=== PATIENT | female | born 1950 | race Caucasian/White ===

== ENCOUNTER → 2017-12-20 10:42 | Outpatient (CLI) | payer OTHER, MEDICARE, SELFPAY | PROVIDERS: Family Provider Family Medicine Geriatric Medicine; PCP Family Medicine Geriatric Medicine; Visit Provider Family Medicine Geriatric Medicine | DX: I10 Essential (primary) hypertension (principal); E55.9 Vitamin D deficiency, unspecified; Z13.89 Encounter for screening for other disorder ==

== ENCOUNTER → 2018-02-23 11:27 | Outpatient (CLI) | payer MEDICARE, OTHER, SELFPAY ==
--- NOTE | 2018-02-23 11:27 | DT_ITS ---
This patient was seen during an EMR downtime February 19, 2018 - February 26, 2018. This patient may have a combination of paper and electronic documentation or all paper documentation. All documentation is viewable within the e-chart portion of [facility] for each patient visit.
[2018-02-23 14:50] LABS: Hematocrit 38.7 % (37-47); Hemoglobin 12.4 g/dl (12.0-15.0); Mean Corpuscular Hgb 29.3 pg (27.0-32.0); Mean Corpuscular Volume 91.5 fL (81-99); Red Blood Count 4.23 M/mm3 (4.2-5.4); White Blood Count 9.3 K/mm3 (4.4-11.0)
[2018-02-23 14:51] LABS: Absolute Lymphocyte Count 2.76 X10^3/ul (0.83-4.51); Absolute Neutrophil Count 5.7 X10^3/uL (2.0-7.7); Basophil# 0.03 X10^3/uL; Basophil% 0.3 % (0-1); Eosinophil# 0.22 X10^3/uL; Eosinophils% 2.4 % (0-5); Lymphocyte # 2.76 X10^3/ul (4.0); Lymphocyte % 29.6 % (19-41); Mean Platelet Vol. 12.7 fl (6.2-12.0); Monocyte# 0.62 X10^3/uL; Monocyte% 6.6 % (0-10); Neutrophil # 5.68 X10^3/uL (2.7-7.7); Neutrophil % 60.9 % (47-70); POSITIVE COUNT NO; POSITIVE DIFFERENTIAL NO; POSITIVE MORPHOLOGY NO; Platelet Count 187 K/mm3 (150-450); RBC Distribution Width CV 14.6 % (11.6-14.6); RBC Distribution Width SD 48.4 fl (35.1-43.9)
[2018-02-23 15:41] LABS: BUN 21 mg/dL (7-18); BUN/Creat Ratio 20.2 RATIO (10-20); Creatinine, Serum 1.04 mg/dL (0.55-1.02); EST Glomerular Filtration Rate 56 mL/min (>60); Est Glom Filt Rate - Afr Amer 68 mL/min (>60); Glucose 78 mg/dL (74-106)
[2018-02-23 15:42] LABS: ALB/GLOB Ratio 1.2 RATIO (0.9-2.4); AST(SGOT) 15 U/L (15-37); Alanine Aminotransfer ALT/SGPT 25 U/L (13-56); Albumin, Serum 3.8 g/dL (3.2-5.0); Alkaline Phosphatase 99 U/L (45-117); Anion Gap 10 (5-15); Calcium,Total 8.6 mg/dL (8.5-10.1); Chloride 107 mmol/L (98-107); Globulin 3.2 g/dL (2.2-4.2); Potassium 3.5 mmol/L (3.5-5.1); Sodium Level 144 mmol/L (136-145); Thyroid Stim Hormone (TSH) 1.91 uIU/mL (0.358-3.74)
[2018-02-26 09:27] LABS: Vitamin D,25 Hydroxy 53.4 ng/mL (29.95-100.01)
== END ==
PROVIDERS: Family Provider Family Medicine Geriatric Medicine; PCP Family Medicine Geriatric Medicine; Visit Provider Family Medicine Geriatric Medicine
DX: I10 Essential (primary) hypertension (principal); E55.9 Vitamin D deficiency, unspecified; Z13.89 Encounter for screening for other disorder
CPT/HCPCS: 36415; 80053; 82306; 84443; 85025; 86803

== ENCOUNTER → 2018-02-28 16:41 | Outpatient (CLI) | payer MEDICARE, OTHER, SELFPAY ==
--- NOTE | 2018-02-28 | EMB_PTH ---
PATIENT: SHAWN TIMMONS LOC: [facility] U#:[id number] AGE/SX: 74/F ROOM: RE02/28/[address]: Dr. Nataly Wells MD : 1950 BED: DIS: SPEC #: [id number] RECD: 02/28/18 16:42 STATUS: SAUL DIDIER #: [id number] MATILDA: 02/28/18 00:[address]: Nataly Wells DEPT: SURGICAL PATHOLOGY RECD BY: Ruslan Diaz ENTERED: 03/01/18 05:19 SP TYPE: ENDOM BX/C OSIOT DR: Dr. Abelino Ring MD Tissues: Endometrium, NOS Procedures: Surgery Specimen Level IV HEADER OPERATION: Endometrial biopsy PRE-OP DIAGNOSIS: Abnormal uterine bleeding TISSUE SUBMITTED: Endometrial lining MICROSCOPIC DIAGNOSIS Endometrium, biopsy: Fragments of benign polypoid endometrium with cystic change. Focal pseudodecidual change. AM:quirino 03/02/18 COMMENT The polypoid tissue may represent fragment of endometrial polyp.. Clinical correlation is suggested. Case has been reviewed in consultation with Dr. George who concurs with the above diagnosis. IDC:ANGELY MICROSCOPIC DESCRIPTION Slides are reviewed. GROSS DESCRIPTION Received is one container labeled with the patient's name and not further designated. The specimen consists of multiple irregular fragments of irvin mucoid tissue mixed with hemorrhagic soft tissue that in aggregate measure 2.5 x 1 x 0.3 cm. The specimen is totally submitted in one cassette. / ANGELY:quirino 03/01/18 TC:5 CPT: 69942
== END ==
PROVIDERS: Family Provider Family Medicine Geriatric Medicine; PCP Family Medicine Geriatric Medicine; Visit Provider Obstetrics & Gynecology
DX: N93.9 Abnormal uterine and vaginal bleeding, unspecified (principal)
CPT/HCPCS: 88305

== ENCOUNTER → 2018-05-28 14:54 | Outpatient (CLI) | payer MEDICARE, OTHER, SELFPAY ==
[2018-05-28 16:20] LABS: Absolute Lymphocyte Count 2.67 X10^3/ul (0.83-4.51); Absolute Neutrophil Count 4.7 X10^3/uL (2.0-7.7); Basophil# 0.04 X10^3/uL; Basophil% 0.5 % (0-1); Eosinophil# 0.44 X10^3/uL; Eosinophils% 5.2 % (0-5); Hematocrit 39.9 % (37-47); Hemoglobin 12.7 g/dl (12.0-15.0); Lymphocyte # 2.67 X10^3/ul (4.0); Lymphocyte % 31.6 % (19-41); Mean Corp Hgb Conc 31.8 g/gl (32-36); Mean Corpuscular Hgb 29.3 pg (27.0-32.0); Mean Corpuscular Volume 91.9 fL (81-99); Mean Platelet Vol. 12.9 fl (6.2-12.0); Monocyte% 7.1 % (0-10); Neutrophil # 4.68 X10^3/uL (2.7-7.7); Neutrophil % 55.4 % (47-70); Platelet Count 185 K/mm3 (150-450); RBC Distribution Width CV 14.2 % (11.6-14.6); RBC Distribution Width SD 46.8 fl (35.1-43.9); Red Blood Count 4.34 M/mm3 (4.2-5.4); White Blood Count 8.5 K/mm3 (4.4-11.0)
[2018-05-28 16:21] LABS: POSITIVE COUNT NO; POSITIVE DIFFERENTIAL NO; POSITIVE MORPHOLOGY NO
[2018-05-28 16:39] LABS: Vitamin D,25 Hydroxy 37.6 ng/mL (29.95-100.01)
[2018-05-28 17:17] LABS: ALB/GLOB Ratio 1.1 RATIO (0.9-2.4); AST(SGOT) 20 U/L (15-37); Alanine Aminotransfer ALT/SGPT 32 U/L (13-56); Albumin, Serum 3.6 g/dL (3.2-5.0); Alkaline Phosphatase 91 U/L (45-117); Anion Gap 9 (5-15); BUN 19 mg/dL (7-18); BUN/Creat Ratio 19.6 RATIO (10-20); Calcium,Total 8.6 mg/dL (8.5-10.1); Chloride 108 mmol/L (98-107); Creatinine, Serum 0.97 mg/dL (0.55-1.02); EST Glomerular Filtration Rate 61 mL/min (>60); Est Glom Filt Rate - Afr Amer 74 mL/min (>60); Globulin 3.2 g/dL (2.2-4.2); Glucose 92 mg/dL (74-106); Potassium 3.9 mmol/L (3.5-5.1); Protein, Total 6.8 g/dL (6.4-8.2); Sodium Level 142 mmol/L (136-145); Thyroid Stim Hormone (TSH) 1.75 uIU/mL (0.358-3.74)
[2018-05-30 11:19] LABS: Hep C Antibodies <0.1 s/co ratio (0.0-0.9)
== END ==
PROVIDERS: Family Provider Family Medicine Geriatric Medicine; PCP Family Medicine Geriatric Medicine; Visit Provider Family Medicine Geriatric Medicine
DX: I10 Essential (primary) hypertension (principal); E55.9 Vitamin D deficiency, unspecified; Z13.89 Encounter for screening for other disorder
CPT/HCPCS: 36415; 80053; 82306; 84443; 85025; 86803

== ENCOUNTER → 2018-08-28 14:22 | Outpatient (CLI) | payer MEDICARE, OTHER, SELFPAY ==
[2018-06-26 10:26] VITALS: BMI 35.9
--- NOTE | 2018-08-28 14:40 | BD_ITS ---
STUDY: DUAL ENERGY X-RAY ABSORPTIOMETRY / DXA REASON FOR EXAM: Female, 67 years old. The patient is postmenopausal. Loss of height. TECHNIQUE: Bone Mineral Density (BMD) measurements of lumbar spine and bilateral hips were obtained. COMPARISON: Comparison is made with prior study dated August 10, 2016. FINDINGS: Lumbar Spine (L1-L4): g/cm2 (1.548) / T-score (3.1) / Z-score (4.7) Findings are suggestive of normal bone density with a low fracture risk. Left Femur Total: g/cm2 (1.239) / T-score (1.8) / Z-score (3.2) Left Femoral Neck: g/cm2 (1.146) / T-score (0.8) / Z-score (2.4) Right Femur Total: g/cm2 (1.200) / T-score (1.5) / Z-score (2.9) Right Femoral Neck: g/cm2 (1.052) / T-score (0.1) / Z-score (1.7) The T-Scores on the most recent prior examination were: Lumbar Spine (L1-L4): There has been worsening of bone density since the previous examination. Left Femur Total: which represents a worsening of 3.7%. Right Femur Total: which represents a worsening of 0.3%. BD/Dexa Bone Density Study IMPRESSION: The patient is considered normal as outlined below according to World Daniel Organization (WHO) criteria with a low fracture risk. There has been worsening of bone density since the previous examination. Reference Information: The T-score is the number of standard deviations above or below the standard which is normal for young adults at their peak bone mineral density. The World Health Organization (WHO) interprets the T-scores as follows: Above -1 Normal bone density Between -1 and -2.5 Osteopenia Equal to / or below -2.5 Osteoporosis As a practical clinical guideline, osteopenia may be graded as follows: Mild -1 through -1.5 Moderate -1.6 through -2.0 Severe -2.1 through -2.4 The Z-score is the number of standard deviations above or below age-matched controls. A Z-score of less than -1.5 would be considered abnormal. References: 1. NIH Osteoporosis and Related Bone Diseases http://www.osteo.org 2. International Society for Clinical Densitometry http://www.iscd.org 3. National Osteoporosis Foundation http://www.nof.org Electronically Signed: Jake Espinosa MD at 12:45 EST Tel [phone], Service support ,
--- OUTSIDE RECORDS SUMMARY | 2018-10-14 20:01 | XMS RPT_ITS ---
:1950 Author Organization [place] Support Name Relationship Address Phone EDVIN MONROE Unavailable [address] + [place] [address] R Unavailable Unavailable Unavailable IAIN HE Unavailable [address] + [place] [address] EDVIN MONROE Unavailable [address] + [place] [address] R Unavailable Unavailable Unavailable IAIN, HE Unavailable [address] + [place] [address] EDVIN MONROE Unavailable [address] + [place] [address] R Unavailable Unavailable Unavailable IAIN, HE Unavailable [address] + [place] [address] EDVIN MONROE Unavailable [address] + [place] [address] R Unavailable Unavailable Unavailable IAIN, HE Unavailable [address] + [place] [address] EDVIN MONROE Unavailable [address] + [place] [address] R Unavailable Unavailable Unavailable IAIN, HE Unavailable [address] + [place] [address] EDVIN MONROE Unavailable [address] + [place] [address] R Unavailable Unavailable Unavailable IAIN, HE Unavailable [address] + [place] [address] EDVIN MONROE Unavailable [address] + [place] [address] R Unavailable Unavailable Unavailable IAIN, HE Unavailable [address] + [place] [address] EDVIN MONROE Unavailable [address] + [place] [address] R Unavailable Unavailable Unavailable IAINABISAI NelsonER Unavailable [address] + [place] [address] EDVIN MONROE Unavailable [address] + [place] [address] R Unavailable Unavailable Unavailable IAINHE Nelson Unavailable [address] + [place] [address] EDVIN MONROE Unavailable [address] + [place] [address] R Unavailable Unavailable Unavailable IAIN, HE Unavailable [address] + [place] [address] EDVIN MONROE Unavailable [address] + [place] [address] R Unavailable Unavailable Unavailable IAINABISAI NelsonER Unavailable [address] + [place] [address] EDVIN MONROE Unavailable [address] + [place] [address] R Unavailable Unavailable Unavailable IAIN, HE Unavailable [address] + [place] [address] MCLEANEDVIN Un[address] + [place] [address] R Unavailable Unavailable Unavailable IAINHE Nelson Unavailable [address] + [place] [address] EDVIN MONROE Unavailable [address] + [place] [address] R Unavailable Unavailable Unavailable IAINABISAI NelsonER Unavailable [address] + [place] [address] EDVIN MONROE Unavailable [address] + [place] [address] R Unavailable Unavailable Unavailable IAIN, HE Unavailable [address] + [place] [address] Care Team Providers Name Role Phone Jhonathan, Abelino Chi Attending Unavailable Jhonathan, Abelino Chi Primary Care Unavailable Jhonathan, Abelino Chi Attending Unavailable Jhonathan, Abelino Chi Primary Care Unavailable Jhonathan, Abelino Chi Attending Unavailable Jhonathan, Abelino Chi Primary Care Unavailable Dawit Sorensen Attending Unavailable Jhonathan, Abelino Chi Referring Unavailable Dawit Sorensen Attending Unavailable Dawit Sorensen Referring Unavailable Jhonathan, Abelino Chi Primary Care Unavailable Portia Lim PA-C Attending Unavailable Jhonathan, Abelino Chi Referring Unavailable Aleena Orourke Attending Unavailable Jhonathan, Abelino Chi Attending Unavailable Jhonathan, Abelino Chi Primary Care Unavailable Phillip Soler Attending Unavailable Jhonathan, Abelino Chi Referring Unavailable Jhonathan, Abelino Chi Primary Care Unavailable Jhonathan, Abelino Chi Attending Unavailable Jhonathan, Abelino Chi Referring Unavailable Jhonathan, Abelino Chi Primary Care Unavailable Nataly Wells Attending Unavailable Jhonathan, Abelino Chi Referring Unavailable Jhonathan, Abelino Chi Primary Care Unavailable MarcanthonyNataly Attending Unavailable Jhonathan, Abelino Chi Primary Care Unavailable Marcanthony Nataly Referring Unavailable Jhonathan, Abelino Chi Attending Unavailable Jhonathan, Abelino Chi Primary Care Unavailable Nataly Wells Attending Unavailable Jhonathan, Abelino Chi Referring Unavailable MarcNataly borja Attending Unavailable Jhonathan, Abelino Chi Referring Unavailable Jhonathan, Abelino Chi Primary Care Unavailable PROBLEMS PROBLEMS DATE TYPE CONDITION / CODE ATTENDING STATUS SOURCE 09/05/2018 Unknown R92.8 - Other Dawit Sorensen Active [facility] abnormal and [facility] inconclusive Hospital findings on Repository diagnostic imaging of breast / R92.8(ICD-10) 08/28/2018 Unknown N95.9 - Unspecified Jhonathan, Abelino Chi Active [place] menopausal and [facility] perimenopausal Hospital disorder / Repository N95.9(ICD-10) 06/26/2018 Unknown Z30.432 - Encounter Marcanthony, Active [place] for removal of [facility] Hospital contraceptive device Repository / Z30.432(ICD-10) 06/26/2018 Unknown N85.01 - Benign Marcanthony, Active [facility] endometrial [facility] hyperplasia / Hospital N85.01(ICD-10) Repository 03/14/2018 Unknown I10 - Essential Jhonathan, Abelino Chi Active [facility] (primary) [facility] hypertension / Hospital I10(ICD-10) Repository 01/08/2018 Unknown R00.2 - Palpitations Phillip Soler Active [facility] / R00.2(ICD-10) [facility] Hospital Repository PROCEDURES PROCEDURES No Procedure Records FoundRESULTS RESULTS SURGERY VISIT REPORT Observed: 09/12/2018 Status: F Source: [place] 1:57 PM [facility] REPOSITORY [facility] [address] [place] [address] OFFICE VISIT Date of Service: 09/12/18 MR#: [id number] Acct: [id number] Name: SHAWN TIMMONS Rep #: [id number] : 1950 Provider: Portia Lim PA-C Age/Sex: 67/F Location: [facility] Status: Signed Intake Intake Visit Reasons: lump near biopsy site Chief Complaint: abn mammo/ US right Estate Attorney Required: No Is patient in pain?: No Allergies amoxicillin Allergy (Verified 09/12/18 13:23) Rash bee venom protein (honey bee) Allergy (Verified 09/12/18 13:23) Swelling Medications Aspirin [Aspir-Low] 81 mg PO QHS 07/27/17 [History Confirmed 09/12/18] Ergocalciferol [Vitamin D] 50,000 unit PO QMONTH 07/27/17 [History Confirmed 09/12/18] Subjective Details: Patient is a 67 y/o female I am following for abnormal mammogram. Dr. Sorensen performed a right breast ultrasound guided biopsy on 09/04/18. Patient tolerated the procedure well. Pathology demonstrated benign breast tissue. Medial calcification blood vessel wall. Negative for atypia or malignancy. Patient notes moderate amount of ecchymosis. Biopsy site is healing. Objective Details: Right breast- moderate amount of ecchymosis. Biopsy site intact. No drainage noted. Small hematoma palpated. Assessment AND Plan Problems 1. Abnormal mammogram R92.8 2. Hematoma T14.8XXA Plan - Recommend follow-up right breast mammogram in 6 months - Follow-up with Dr. Sorensen after imaging Coding Level of Care Code Off vis,est,level 3 Diagnoses Abnormal mammogram R92.8 Hematoma T14.8XXA 09/12/18 8207 <Electronically signed by Portia Lim PA-C> Date Portia Lim PA-C Cosigner Signature: Date (if applicable) CC: Abelino Ring MD SURGERY VISIT REPORT Observed: 09/10/2018 Status: F Source: [place] 4:09 PM [facility] REPOSITORY [facility] [address] [place] [address] OFFICE VISIT Date of Service: 09/05/18 MR#: [id number] Acct: [id number] Name: SHAWN TIMMONS Rep #: [id number] : 1950 Provider: Dawit Sorensen MD Age/Sex: 67/F Location: [facility] Status: Signed Intake Vital Signs09/05/18 Height 5 ft 1.5 in 09/05/18 Weight: 199 lb 7 oz 09/05/18 Body Mass Index (BMI) 37.0 09/05/18 Blood Pressure 182/75 H Intake Visit Reasons: Abn Mammo Rt Breast [facility] Mammo 08/30 US 08/31 Chief Complaint: abn mammo/ US right Estate Attorney Required: No Is patient in pain?: No Allergies amoxicillin Allergy (Verified 09/05/18 14:11) Rash bee venom protein (honey bee) Allergy (Verified 09/05/18 14:11) Swelling Medications Aspirin [Aspir-Low] 81 mg PO QHS 07/27/17 [History Confirmed 09/05/18] Ergocalciferol [Vitamin D] 50,000 unit PO QMONTH 07/27/17 [History Confirmed 09/05/18] Is last menstrual period known: No Post menopausal: Yes Patient : No PFS Medical History Palpitations (Acute) Nonrheumatic aortic (valve) stenosis (Chronic) Left ventricular hypertrophy (Acute) Hyperlipidemia (Acute) Hypertension (Chronic) Anxiety (Acute) Endometrial hyperplasia without atypia, simple (Acute) History of hysteroscopy (Resolved) Surgical History History of tubal ligation (Chronic) History of cardiac catheterization (Resolved 04/13/11) History of dilatation and curettage (Resolved) History of eye surgery (Resolved) History of tonsillectomy (Resolved) s/p bilateral eye surgery (Resolved) Family History Aunt Cancer Lung Uncle CVA (cerebral vascular accident) Father Heart disease Social History Smoking Status: Never smoker alcohol intake: never substance use type: does not use caffeine: Yes what type of physical activity do you participate in: none seatbelt use: always additional social history: He- Retired HPI HPI HPI: SHAWN TIMMONS, is a 67 F who presents to the office today for evaluation of an abnormal mammogram and ultrasound completed on 08/31/2018. This showed that in the inferior medial portion at the 4 o'clock position approximately 2 cm from the nipple was a 1.3 x 1.3 x 0.5 cm hypoechoic lobulated nodule. A biopsy was recommended. Patient has been off her aspirin for 2 days. She has never had a breast biopsy in the past. She has a relatively strong family history of breast cancer ROS General General: No weight change, appetite, fatigue, colon cancer, breast cancer or weakness HEENT HEENT: No difficulty swallowing, eye injury, eye surgery, swollen glands or hoarseness Endo Endocrine: No thyroid disease, diabetes mellitus, thyroid cancer, Hair loss, heat intolerance or cold intolerance Breast Breast: No nipple discharge Cardio Cardiovascular: Yes murmur and high blood pressure; no pacemaker, heart disease, atrial fibrillation, heart attack, heart stent, palpitations, shortness of breat with exertion or chest pain Resp Respiratory: No shortness of breath, No sleep apnea, No cough, No COPD, No asthma, No emphysema, No wheezing Gastro Gastrointestinal: No abdominal pain, No nausea or vomiting, No diarrhea, No constipation, No blood in stool, No acid reflux, No hemorrhoids, No ulcers, No gallbladder problem, No black,tarry stools Mundo Hematologic: No blood thinners, No blood disorders, No bleeding, No anemia, No blood clots Neuro Neurologic: No weakness Exam [facility] Head: normal to inspection, normocephalic, atraumatic Mouth: moist mucous membranes, oropharynx normal Eyes General: appearance normal, both eyes and all related structures Sclera: sclerae normal Neck Neck: no lymphadenopathy noted, trachea midline Neck mass: No Thyroid: thyroid normal Lymphatic: no lymphadenopathy noted Chest Breast inspection: normal inspection of the breasts Breast Palpation: Yes normal palpation of the breasts, No change in skin, No breast mass, No nipple discharge Resp Other: Respiratory Exam: Deferred Cardio Heart Sounds: murmur Other: Cardiac Exam: Deferred GI Other: GI Exam: Deferred Other: Rectal Exam: Deferred Extrem Other: Extremity Exam: Deferred Office Procedures Biopsy Provider Documentation Preoperative diagnosis: Abnormal mammogram to right breast Postoperative diagnosis: The same Procedure: Ultrasound-guided handheld mammotome breast biopsy left breast Surgeon: Edu Procedure ultrasound of the right breast at the 4 o'clock position revealed the lesion 2 cm from the nipple complex area. I prepped the breast with Betadine. I injected 1% lidocaine plain. I injected local posterior to the lesion. A skin susi was made. Under ultrasound guidance the handheld mammotome needle was directed posterior to the lesion. Under ultrasound guidance numerous biopsies were obtained of this lesion. Under ultrasound guidance a small titanium clip was placed in the biopsy cavity. Pressure was applied for at least 25 minutes prior to the application of a dressing. Steri-Strips were applied sterile dressings were applied and the patient tolerated the procedure well. Alert Skyler Yes Biopsy Breast Biopsy: 28157 US Guidance Procedure Time Out Time Out Informed consent given: Yes Consent signed: Yes Time out checklist: patient, procedure, site marked/identified, positioning of patient, supplies available, allergies confirmed, team agrees on procedure Time out staff in room: Yes Time out verified: Yes Time out date: 09/05/18 Time out time: 14:30 Assessment AND Plan Problems 1. Abnormal mammogram of right breast R92.8 Plan We will do an ultrasound-guided hand L mammotome breast biopsy today in the office. 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 Diagnoses Abnormal mammogram of right breast R92.8 Additional Codes Biopsy - Breast Biopsy: 87741 US Guidance (76663) Comment I would like her to be billed for both the office component and the biopsy component 09/10/18 1609 <Electronically signed by Dawit Sorensen MD> Date Dawit Sorensen MD Cosigner Signature: Date (if applicable) CC: Abelino Ring MD BREAST BIOPSY Observed: 09/04/2018 Status: F Source: [place] (CHOOSE SITE) 2:30 PM [facility] REPOSITORY Patient: SHAWN TIMMONS : 1950 (67/F) Acct Num: [id number] Phys: Dawit Sorensen MD Unit Num: [id number] Loc: [facility] Specimen: [id number] Received: 09/05/18 - 1546 Spec Type: BREAST BX TISSUES 1 TISSUES: Right breast, NOS COMMENT Correlation with clinical, radiologic findings and appropriate follow up are necessary. GROSS DESCRIPTION Received in fixative is one container labeled with the patient's name and designated mammotome biopsy right breast. The specimen consists of multiple irregular fragments of light irvin-white soft tissue that in aggregate measure 1.5 x 1 x 0.1 cm. The specimen is totally submitted in one cassette. / AM:quirino TC:5 CPT: 84642 HEADER OPERATION: Ultrasound-guided mammotome biopsy right breast PRE-OP DIAGNOSIS: Abnormal mammogram R92.8 TISSUE SUBMITTED: Right breast biopsy ISCHEMIC TIME: 1 minute MICROSCOPIC DESCRIPTION Slides are reviewed. MICROSCOPIC DIAGNOSIS Right breast, ultrasound-guided mammotome core biopsy: Fragments of benign breast tissue with extensive dense fibrosis. Medial calcification blood vessel wall. Negative for atypia or malignancy. SJ:quirino 09/07/18 Signed Ramy George MD 09/07/18 <signature on file> Performed By: #### PBRBX #### [facility] [address] [place], [place], [address] BREAST LIMITED Observed: 08/31/2018 Status: F Source: [place] UNILATERAL 10:57 AM [facility] REPOSITORY [facility] Imaging Services [address] [place] [address] Breast Limited Unilateral MR#: [id number] Acct: [id number] Name: SHAWN TIMMONS Rep #: [id number] : 1950 F 67 From: Jake Espinosa MD PCP: Abelino Ring MD, Chi Status: REG CLI Study: Breast Limited Unilateral Date of Exam: 08/31/18 Exam# [id number] Ordering Dr: Abelino Ring MD STUDY: ULTRASOUND BREAST - RIGHT REASON FOR EXAM: Female, 67 years old. Abnormal screening mammogram. TECHNIQUE: Axial and longitudinal images of the RIGHT breast were performed with a high resolution ultrasound transducer. COMPARISON: Comparison is made with prior mammogram dated August 30, 2018. FINDINGS: RIGHT Breast: The inferior medial portion of the right breast was examined by ultrasound. The mammographic abnormality corresponds to a 1.3 cm x 1.3 cm x 0.5 cm lobulated hypoechoic nodular density. Increased flow is seen. A biopsy is recommended for further evaluation. US/Breast Limited Unilateral IMPRESSION: The mammographic abnormality corresponds to 1.3 cm x 1.3 cm x 0.5 cm hypoechoic lobulated nodule at the 4:00 position breast at 2 cm from the nipple. A biopsy is recommended for further evaluation. ASSESSMENT CATEGORY: BIRADS Category 4: Suspicious - Biopsy Should Be Considered. A letter regarding these results will be sent to the patient by the facility within 30 days. Electronically Signed: Jake Espinosa MD at 13:40 EST Tel [phone], Service support , CC: Abelino Ring MD Radar Engineering Teacher: Signed SCREENING MAMM (CAD), Observed: 08/30/2018 Status: F Source: [place] BILAT 9:24 AM [facility] REPOSITORY [facility] Imaging Services [address] [place] [id number] SCREENING MAMM (CAD), BILAT MR#: [id number] Acct: [id number] Name: SHAWN TIMMONS Rep #: [id number] : 1950 F 67 From: Jake Espinosa MD PCP: Abelino Ring MD, Chi Status: REG CLI Study: SCREENING MAMM (CAD), BILAT Date of Exam: 08/30/18 Exam# [id number] Ordering Dr: Abelino Ring MD MAMMOGRAPHY - BILATERAL SCREENING REASON FOR EXAM: Female, 67 years old. Routine annual screening examination. PERTINENT HISTORY: Sister with breast cancer. TECHNIQUE: Digital bilateral breast dimple (3D mammographic acquisition) in the CC and MLO projections. 2-D mediolateral oblique (MLO) and craniocaudad (CC) views of both breasts were obtained. CAD: Full Field Digital Mammography with Computer Added Detection was performed. COMPARISON: Comparison is made with prior study dated August 10, 2016 and March 17, 2014. FINDINGS: Breast Composition: The breasts are heterogeneously dense, which may obscure small masses. There are no dominant masses or suspicious calcifications. Questionable 1 cm x 1.3 cm nodular density in the inferior central portion of the right breast. Correlation with ultrasound is recommended. No other significant abnormalities are identified. BI/SCREENING MAMM (CAD), BILAT IMPRESSION: I suspect a 1 cm x 1.3 cm nodular density in the inferior central portion of the right breast. Correlation with ultrasound is recommended. ASSESSMENT CATEGORY: BIRADS Category 0: Incomplete. Need additional imaging evaluation. A letter regarding these results will be sent to the patient by the facility within 30 days. Approximately 10% of breast cancers are not detected by mammography. A normal mammogram should not delay biopsy of a clinically suspicious abnormality. [id number] Electronically Signed: Jake Espinosa MD at 10:22 EST Tel [phone], Service support , CC: Abelino Ring MD Radar Engineering Teacher: Signed DEXA BONE DENSITY Observed: 08/28/2018 Status: F Source: [place] STUDY 2:30 PM [facility] REPOSITORY [facility] Imaging Services [address] [place] [address] Dexa Bone Density Study MR#: [id number] Acct: [id number] Name: SHAWN TIMMONS Rep #: [id number] : 1950 F 67 From: Jake Espniosa MD PCP: Abelino Ring MD, Chi Status: REG CLI Study: Dexa Bone Density Study Date of Exam: 08/28/18 Exam# [id number] Ordering Dr: Abelino Ring MD STUDY: DUAL ENERGY X-RAY ABSORPTIOMETRY / DXA REASON FOR EXAM: Female, 67 years old. The patient is postmenopausal. Loss of height. TECHNIQUE: Bone Mineral Density (BMD) measurements of lumbar spine and bilateral hips were obtained. COMPARISON: Comparison is made with prior study dated August 10, 2016. FINDINGS: Lumbar Spine (L1-L4): g/cm2 (1.548) / T-score (3.1) / Z-score (4.7) Findings are suggestive of normal bone density with a low fracture risk. Left Femur Total: g/cm2 (1.239) / T-score (1.8) / Z-score (3.2) Left Femoral Neck: g/cm2 (1.146) / T-score (0.8) / Z- score (2.4) Right Femur Total: g/cm2 (1.200) / T-score (1.5) / Z- score (2.9) Right Femoral Neck: g/cm2 (1.052) / T-score (0.1) / Z- score (1.7) The T-Scores on the most recent prior examination were: Lumbar Spine (L1-L4): There has been worsening of bone density since the previous examination. Left Femur Total: which represents a worsening of 3.7%. Right Femur Total: which represents a worsening of 0.3%. BD/Dexa Bone Density Study IMPRESSION: The patient is considered normal as outlined below according to World Daniel Organization (WHO) criteria with a low fracture risk. There has been worsening of bone density since the previous examination. Reference Information: The T-score is the number of standard deviations above or below the standard which is normal for young adults at their peak bone mineral density. The World Health Organization (WHO) interprets the T-scores as follows: Above -1 Normal bone density Between -1 and -2.5 Osteopenia Equal to / or below -2.5 Osteoporosis As a practical clinical guideline, osteopenia may be graded as follows: Mild -1 through -1.5 Moderate -1.6 through -2.0 Severe -2.1 through -2.4 The Z-score is the number of standard deviations above or below age-matched controls. A Z-score of less than -1.5 would be considered abnormal. References: 1. NIH Osteoporosis and Related Bone Diseases http://www.osteo.org 2. International Society for Clinical Densitometry http://www.iscd.org 3. National Osteoporosis Foundation http://www.nof.org Electronically Signed: Jake Espinosa MD at 12:45 EST Tel [phone], Service support , CC: Abelino Ring MD Radar Engineering Teacher: Signed RETAIL INTERIOR DESIGNER OFFICE VISIT Observed: 06/26/2018 Status: F Source: [place] REPORT 10:43 AM [facility] [address] [place] [address] OFFICE VISIT Date of Service: 06/26/18 MR#: [id number] Acct: [id number] Name: SHAWN TIMMONS Rep #: [id number] : 1950 Provider: Nataly Wells MD Age/Sex: 67/F Location: [facility] [place] [facility] Status: Signed Intake Vital Signs06/26/18 Height 5 ft 2 in 06/26/18 Weight: 196 lb 2 oz 06/26/18 Body Mass Index (BMI) 35.9 06/26/18 Blood Pressure 150/98 H Intake Visit Reasons: IUD REMOVAL Chief Complaint: IUD Removal Estate Attorney Required: No Is patient in pain?: No Allergies amoxicillin Allergy (Verified 02/28/18 11:34) Rash bee venom protein (honey bee) Allergy (Verified 02/28/18 11:34) Swelling Medications Aspirin [Aspir-Low] 81 mg PO QHS 07/27/17 [History Confirmed 06/26/18] Atorvastatin Calcium [Lipitor] 40 mg PO QHS 07/27/17 [History Confirmed 06/26/18] Ergocalciferol [Vitamin D] 50,000 unit PO QMONTH 07/27/17 [History Confirmed 06/26/18] Is last menstrual period known: No Post menopausal: Yes Patient : No : No PFSH PFSH Medical History Palpitations (Acute) Nonrheumatic aortic (valve) stenosis (Chronic) Left ventricular hypertrophy (Acute) Hyperlipidemia (Acute) Hypertension (Chronic) Anxiety (Acute) Endometrial hyperplasia without atypia, simple (Acute) History of hysteroscopy (Resolved) Surgical History History of tubal ligation (Chronic) History of cardiac catheterization (Resolved 04/13/11) History of dilatation and curettage (Resolved) History of eye surgery (Resolved) History of tonsillectomy (Resolved) s/p bilateral eye surgery (Resolved) Family History Aunt Cancer Lung Uncle CVA (cerebral vascular accident) Father Heart disease Social History Smoking Status: Never smoker alcohol intake: never substance use type: does not use caffeine: Yes what type of physical activity do you participate in: none seatbelt use: always additional social history: He- Retired Pregancy History 1 Elective abortions Hx Para 1 Spontaneous abortions Past Pregnancies Del. DatName [facility] LgAnesthesD LocaProviderFOB e ht en ia tn Unknown 1972 Sco tt HPI IUD REMOVAL : Details: SHAWN TIMMONS is a 67 year old who presents for iud removal ROS Const Constitutional: Reports system reviewed and no additional complaints, except as docu; denies chills, fever(s), weight loss or weight gain GI GI: Reports as per HPI; denies vomiting, nausea, constipation, cramping, bloating or abdominal pain : Reports as per HPI; denies vaginal dryness, vaginal discharge, urinary urgency, urinary frequency or urinary incontinence Exam Const General: cooperative, healthy appearing, comfortable, well developed Orientation: alert HENMT Head: normal to inspection Resp Effort AND Inspection: normal respiratory effort GI Inspection: normal to inspection, non-distended Palpation: soft, no hepatosplenomegaly, no guarding External Female Exam: normal external appearance, normal appearance of the urethra Urethra: normal appearance of the urethra Speculum Exam - Vagina: normal appearance of the vagina, normal vaginal discharge, no lesions Speculum Exam - Cervix: normal appearance of the cervix, nontender Bimanual Exam- Vagina AND Uterus: No cervical tenderness, normal bimanual exam, uterine mobility normal, uterine consistency normal, uterine shape normal, uterine size normal, uterus non-tender Bimanual Exam- Adnexa, other: normal adnexae, no adnexal masses Office Procedures IUD Removal IUD Removal Details: Sign out documentation: Completed Procedure: Speculum placed in vagina, IUD string visualized and grasped with ring forceps. Assessment AND Plan Problems 1. Endometrial hyperplasia without atypia, simple N85.[address], emb q 6 mos x 2 negative. EMB done 02/28/18- Plan iud removed. d eclined fu emb, plan only if repeat bleeding, losing weight. Orders Orders: Coding Level of Care Code Off vis,est,level 2 Diagnoses Endometrial hyperplasia without atypia, simple N85.01 06/26/18 1043 <Electronically signed by Nataly Wells MD> Date Nataly Wells MD Cosigner Signature: Date (if applicable) CC: CBC W/DIFF, AUTOMATED Collected: 05/28/2018 Status: F Source: MELIA 2:55 PM [facility] REPOSITORY TYPE CODE TESTS RESULT OUT OF RANGE REFERENCE UNITS LAB L100.1000 4.4-11.0 K/mm3 Normal WBC 8.5 LAB L100.1200 4.2-5.4 M/mm3 Normal RBC 4.34 LAB L100.1300 12.0-15.0 g/dl Normal HGB 12.7 LAB L100.1400 37-47 % Normal HCT 39.9 LAB L100.1500 81-99 fL Normal MCV 91.9 LAB L100.1600 27.0-32.0 pg Normal MCH 29.3 LAB L100.1700 32-36 g/gl Low MCHC 31.8 LAB L100.1810 11.6-14.6 % Normal RDW CV 14.2 LAB L100.1820 35.1-43.9 fl High RDW SD 46.8 LAB L100.1900 150-450 K/mm3 Normal PLT 185 LAB L100.2000 6.2-12.0 fl High MPV 12.9 LAB L100.2100 47-70 % Normal NEUT% 55.4 LAB L100.2200 19-41 % Normal LY% 31.6 LAB L100.2300 0-10 % Normal MONO% 7.1 LAB L100.2400 0-5 % High EO% 5.2 LAB L100.2500 0-1 % Normal BASO% 0.5 LAB L100.2550 0.0-0.9 % Normal IM GRAN % 0.200 Result Comment: IG% - Immature Granulocytes (promyelocytes, myelocytes and metamyelocytes) > 1% indicates that a LEFT SHIFT is Present. LAB L100.2620 2.0-7.7 X10 3/uL Normal Absolute Neut 4.7 LAB L100.2720 0.83-4.51 X10 3/ul Normal Absolute Lymph 2.67 Performed By: #### L100.0100 #### [facility] [address] [place], [address] VITAMIN D,25 HYDROXY Collected: 05/28/2018 Status: F Source: MELIA 2:55 PM [facility] REPOSITORY TYPE CODE TESTS RESULT OUT OF RANGE REFERENCE UNITS LAB L506.1000 29.95-100.01 ng/mL Normal Vitamin D 37.6 25-OH Result Comment: Vitamin D 25(OH) Status Range Deficiency <20 ng/mL (50nmol/L) Insuffciency 20 - 30 ng/mL (50 - 75 nmol/L) Sufficiency 30 - 100 ng/mL (75 - 250 nmol/L) Toxicity >100 ng/mL (>250 nmol/L) Performed By: #### L506.1000 #### [facility] [address] [place], [address] COMPREHENSIVE METABOLIC Collected: 05/28/2018 Status: F Source: MELIA [facility] 2:55 PM [facility] REPOSITORY TYPE CODE TESTS RESULT OUT OF RANGE REFERENCE UNITS LAB L501.0100 74-106 mg/dL Normal GLU 92 Result Comment: Please note revised GLUCOSE reference range effective 2017. LAB L501.1000 7-18 mg/dL High BUN 19 LAB L501.1100 0.55-1.02 mg/dL Normal CREAT,SERUM 0.97 Result Comment: The validity of the calculated GFR AND GFRAA in patients over 70 years has not been determined. Clinical correlation is essential. LAB L501.1110 >60 mL/min Normal EST GFR 61 Result Comment: Non- GFR Calc LAB L501.1115 >60 mL/min Normal EST GFR - AA 74 Result Comment: GFR Calc LAB L501.1300 10-20 RATIO Normal BUN/CRE 19.6 LAB L501.1500 6.4-8.2 g/dL T Normal PROT 6.8 LAB L501.1800 3.2-5.0 g/dL Normal ALB 3.6 LAB L501.1950 2.2-4.2 g/dL Normal GLOB 3.2 LAB L501.2000 0.9-2.4 RATIO Normal A/G 1.1 LAB L501.2200 8.5-10.1 mg/dL CA Normal 8.6 LAB L501.4100 15-37 U/L Normal AST 20 LAB L501.4305 45-117 U/L Normal ALK P 91 LAB L501.4405 13-56 U/L Normal ALT 32 LAB L501.4600 0.20-1.00 mg/dL T Normal BILI 0.80 LAB L501.5300 136-145 mmol/L NA Normal 142 LAB L501.5600 3.5-5.1 mmol/L K Normal 3.9 LAB L501.5900 98-107 mmol/L High CL 108 LAB L501.6100 21.0-32.0 mmol/L Normal CO2 25.0 LAB L501.6200 5-15 Normal GAP 9 Performed By: #### L500.4050, L501.9520 #### [facility] [address], [place], [id number] THYROID STIM HORMONE Collected: 05/28/2018 Status: F Source: [place] (TSH) 2:55 PM [facility] REPOSITORY TYPE CODE TESTS RESULT OUT OF RANGE REFERENCE UNITS LAB L501.9520 0.358-3.74 uIU/mL Normal TSH 1.75 Performed By: #### L500.4050, L501.9520 #### [facility] [address], [place], [id number] HEPATITIS C ANTIBODIES Collected: 05/28/2018 Status: F Source: [place] 2:55 PM [facility] REPOSITORY TYPE CODE TESTS RESULT OUT OF RANGE REFERENCE UNITS LAB L3100.0650 0.0-0.9 s/co ratio Normal HEP C AB <0.1 Result Comment: Negative: < 0.8 Indeterminate: 0.8 - 0.9 Positive: > 0.9 The CDC recommends that a positive HCV antibody result be followed up with a HCV Nucleic Acid Amplification test (604857). Performed at: - [facility] [address] [id number] Egg Caser: Ramon Dooley PhD, Phone: [phone] Performed By: #### L3100.0625 #### [facility] (refer to report for specific site) refer to report for address and phone number DOWNTIME REPORT Observed: 03/08/2018 Status: F Source: [facility] 11:51 AM [facility] Medical Records Department [address] [place] [address] Downtime Report MR#: [id number] Acct: [id number] Name: SHAWN TIMMONS Rep #: [id number] : 1950 67 From: Ethan Tao PCP: Jhonathan LUGO,Abelino Mosher Status: REG CLI This patient was seen during an EMR downtime February 19, 2018 - February 26, 2018. This patient may have a combination of paper and electronic documentation or all paper documentation. All documentation is viewable within the e-chart portion of [facility] for each patient visit. [employer]AIL [employer] DES[employer] OFFICE VISIT Observed: 03/04/2018 Status: F Source: [place] REPORT 2:11 PM [facility] [address] [place] [address] OFFICE VISIT Date of Service: 02/28/18 MR#: [id number] Acct: [id number] Name: SHAWN TIMMONS Rep #: [id number] : 1950 Provider: Nataly Wells MD Age/Sex: 67/F Location: [facility] [place] Status: Signed Intake Vital Signs02/28/18 Height 5 ft 2 in 02/28/18 Weight: 205 lb 2 oz 02/28/18 Body Mass Index (BMI) 37.5 02/28/18 Blood Pressure 126/66 Intake Visit Reasons: 6 MONTH FOLLOW UP - IUD Estate Attorney Required: No Is patient in pain?: No Allergies amoxicillin Allergy (Verified 02/28/18 11:34) Rash bee venom protein (honey bee) Allergy (Verified 02/28/18 11:34) Swelling Medications Aspirin [Aspir-Low] 81 mg PO QHS 07/27/17 [History Confirmed 02/28/18] Atorvastatin Calcium [Lipitor] 40 mg PO QHS 07/27/17 [History Confirmed 02/28/18] Ergocalciferol [Vitamin D] 50,000 unit PO QMONTH 07/27/17 [History Confirmed 02/28/18] Lisinopril/Hydrochlorothiazide [Zestoretic 20-12.5 mg Tablet] 1 ea PO QHS 07/27/17 [History Confirmed 02/28/18] Is last menstrual period known: No Post menopausal: Yes Patient : No : No PFSH Medical History Palpitations (Acute) Nonrheumatic aortic (valve) stenosis (Chronic) Left ventricular hypertrophy (Acute) Hyperlipidemia (Acute) Hypertension (Chronic) Anxiety (Acute) Endometrial hyperplasia without atypia, simple (Acute) History of hysteroscopy (Resolved) Surgical History History of tubal ligation (Chronic) History of cardiac catheterization (Resolved 04/13/11) History of dilatation and curettage (Resolved) History of eye surgery (Resolved) History of tonsillectomy (Resolved) s/p bilateral eye surgery (Resolved) Family History Aunt Cancer Lung Uncle CVA (cerebral vascular accident) Father Heart disease Social History Smoking Status: Never smoker alcohol intake: never substance use type: does not use caffeine: Yes what type of physical activity do you participate in: none seatbelt use: always additional social history: He- Retired HPI 6 MONTH FOLLOW UP - IUD: Details: SHAWN TIMMONS is a 67 year old who presents for fu of endometrial hyperplasia. she occasionally has spotting and co some bloating and discomfort, doesn't like how she has felt on the mirena iud. she wants it removed as soon as she can. Pregancy History 1 Elective abortions Hx Para 1 Spontaneous abortions Past Pregnancies Del. DatName GA/WeeksOutcome Route [facility] LocaProviderFOB e ht en tn Unknown 1972 Sco tt ROS Const Constitutional: Reports system reviewed and no additional complaints, except as docu GI GI: Reports as per HPI : Reports as per HPI Exam Const General: cooperative, healthy appearing, comfortable, no acute distress, well developed Nutritional Appearance: average body habitus Orientation: alert HENMT Head: normal to inspection, normocephalic Resp Effort AND Inspection: normal respiratory effort GI Inspection: normal to inspection, non-distended Palpation: soft, no hepatosplenomegaly General: bladder normal to palpation External Female Exam: normal external appearance, normal appearance of the urethra Urethra: normal appearance of the urethra, normal palpation, no discharge Speculum Exam - Vagina: normal appearance of the vagina, normal vaginal discharge Speculum Exam - Cervix: normal appearance of the cervix (strings seen), nontender Bimanual Exam- Vagina AND Uterus: bladder normal to palpation, No cervical tenderness, normal bimanual exam, uterine size normal, uterine shape normal, uterine mobility normal, uterine consistency normal, normal cervical palpation, uterus non-tender Bimanual Exam- Adnexa, other: normal adnexae, adnexae mobile, no adnexal masses, pelvic support normal Pelvic Support: normal Skin General: no rashes or lesions noted Office Procedures Endometrial Biopsy Endometrial Biopsy Test: Yes Not Applicable Consent Signed: Yes Time out checklist: patient, procedure, site marked/identified, positioning of patient, supplies available, allergies confirmed, team agrees on procedure tenaculum used: No dilator used: No Details: Cervix prepped with betadine and pipelle inserted into uterus without complication. Specimen obtained and sent to lab for analysis. All instruments removed from vagina without complications. Excellent hemostasis noted. Assessment AND Plan Problems 1. Endometrial hyperplasia without atypia, simple N85.[address], emb q 6 mos x 2 negative. EMB done 02/28/18- Plan biopsy done, if normal offered iud removal and then repeat biopsy in 6 months versus using the mirena x [address] [facility] results Orders Orders: Coding Level of Care Code Off vis,est,level 3 Diagnoses Endometrial hyperplasia without atypia, simple N85.01 Additional Codes Endometrial Biopsy (02008) 03/04/18 1411 <Electronically signed by Nataly Wells MD> Date Nataly Wells MD Cosigner Signature: Date (if applicable) CC: ENDOMETRIAL BX/CURETTINGS Observed: 02/28/2018 Status: F Source: MELIA 12:00 AM [facility] REPOSITORY Patient: SHAWN TIMMONS : 1950 (67/F) Acct Num: [id number] Phys: Russell LUGO,Natlay Unit Num: [id number] Loc: [facility] Specimen: [id number] Received: 02/28/181641 Spec Type: ENDOM BX/C TISSUES TISSUES: Endometrium, NOS COMMENT The polypoid tissue may represent fragment of endometrial polyp.. Clinical correlation is suggested. Case has been reviewed in consultation with Dr. George who concurs with the above diagnosis. IDC:ANGELY GROSS DESCRIPTION Received is one container labeled with the patient's name and not further designated. The specimen consists of multiple irregular fragments of irvin mucoid tissue mixed with hemorrhagic soft tissue that in aggregate measure 2.5 x 1 x 0.3 cm. The specimen is totally submitted in one cassette. / SJ:quirino 03/01/18 TC:5 CPT: 01023 HEADER OPERATION: Endometrial biopsy PRE-OP DIAGNOSIS: Abnormal uterine bleeding TISSUE SUBMITTED: Endometrial lining MICROSCOPIC DESCRIPTION Slides are reviewed. MICROSCOPIC DIAGNOSIS Endometrium, biopsy: Fragments of benign polypoid endometrium with cystic change. Focal pseudodecidual change. AM:quirino 03/02/18 Signed Yousif Crys 03/02/18 <signature on file> Performed By: #### PEMB #### [facility] [address] [place], [address] COMPREHENSIVE METABOLIC Collected: 02/23/2018 Status: F Source: MELIA KATYA 11:37 AM [facility] REPOSITORY Order Comment: 50 TYPE CODE TESTS RESULT OUT OF RANGE REFERENCE UNITS LAB L501.0100 74-106 mg/dL Normal GLU 78 Result Comment: Please note revised GLUCOSE reference range effective 2017. LAB L501.1000 7-18 mg/dL High BUN 21 LAB L501.1100 0.55-1.02 mg/dL High CREAT,SERUM 1.04 Result Comment: The validity of the calculated GFR AND GFRAA in patients over 70 years has not been determined. Clinical correlation is essential. LAB L501.1110 >60 mL/min Low EST GFR 56 LAB L501.1115 >60 mL/min Normal EST GFR - AA 68 LAB L501.1300 10-20 RATIO High BUN/CRE 20.2 LAB L501.1500 6.4-8.2 g/dL Normal T PROT 7.0 LAB L501.1800 3.2-5.0 g/dL Normal ALB 3.8 LAB L501.1950 2.2-4.2 g/dL Normal GLOB 3.2 LAB L501.2000 0.9-2.4 RATIO Normal A/G 1.2 LAB L501.2200 8.5-10.1 mg/dL Normal CA 8.6 LAB L501.4100 15-37 U/L Normal AST 15 LAB L501.4305 45-117 U/L Normal ALK P 99 LAB L501.4405 13-56 U/L Normal ALT 25 LAB L501.4600 0.20-1.00 mg/dL Normal T BILI 0.90 LAB L501.5300 136-145 mmol/L Normal NA 144 LAB L501.5600 3.5-5.1 mmol/L Normal K 3.5 LAB L501.5900 98-107 mmol/L Normal CL 107 LAB L501.6100 21.0-32.0 mmol/L Normal CO2 27.0 LAB L501.6200 5-15 Normal GAP 10 Performed By: #### L500.4050, L501.9520 #### [facility] [address], [place], [address] THYROID STIM HORMONE Collected: 02/23/2018 Status: F Source: MELIA (TSH) 11:37 AM [facility] REPOSITORY Order Comment: 50 TYPE CODE TESTS RESULT OUT OF RANGE REFERENCE UNITS LAB L501.9520 0.358-3.74 uIU/mL Normal TSH 1.91 Performed By: #### L500.4050, L501.9520 #### [facility] [address], [place], [address] CBC W/DIFF, AUTOMATED Collected: 02/23/2018 Status: F Source: MELIA 11:37 AM [facility] REPOSITORY TYPE CODE TESTS RESULT OUT OF RANGE REFERENCE UNITS LAB L100.1000 4.4-11.0 K/mm3 Normal WBC 9.3 LAB L100.1200 4.2-5.4 M/mm3 Normal RBC 4.23 Result Comment: 913@ ATTENTION TECH: DILUTE AND RETEST SPECIMEN IF LAB L100.1300 12.0-15.0 g/dl Normal HGB 12.4 LAB L100.1400 37-47 % Normal HCT 38.7 LAB L100.1500 81-99 fL Normal MCV 91.5 LAB L100.1600 27.0-32.0 pg Normal MCH 29.3 LAB L100.1700 32-36 g/gl Normal MCHC 32.0 LAB L100.1810 11.6-14.6 % Normal RDW 14.6 CV LAB L100.1820 35.1-43.9 fl High RDW 48.4 SD LAB L100.1900 150-450 K/mm3 Normal PLT 187 LAB L100.2000 6.2-12.0 fl High MPV 12.7 LAB L100.2100 47-70 % Normal NEUT% 60.9 LAB L100.2200 19-41 % Normal LY% 29.6 LAB L100.2300 0-10 % Normal MONO% 6.6 LAB L100.2400 0-5 % Normal EO% 2.4 LAB L100.2500 0-1 % Normal BASO% 0.3 LAB L100.2550 0.0-0.9 % Normal IM 0.200 GRAN % Result Comment: IG% - Immature Granulocytes (promyelocytes, myelocytes and metamyelocytes) > 1% indicates that a LEFT SHIFT is Present. LAB L100.2620 2.0-7.7 X10 3/uL Normal Absolute Neut 5.7 LAB L100.2720 0.83-4.51 X10 3/ul Normal Absolute Lymph 2.76 Performed By: #### L100.0100 #### [facility] [address] [place], [address] VITAMIN D,25 HYDROXY Collected: 02/23/2018 Status: F Source: [place] 11:37 AM [facility] REPOSITORY TYPE CODE TESTS RESULT OUT OF RANGE REFERENCE UNITS LAB L506.1000 29.95-100.01 ng/mL Normal Vitamin D 53.4 25-OH Result Comment: Vitamin D 25(OH) Status Range Deficiency <20 ng/mL (50nmol/L) Insuffciency 20 - 30 ng/mL (50 - 75 nmol/L) Sufficiency 30 - 100 ng/mL (75 - 250 nmol/L) Toxicity >100 ng/mL (>250 nmol/L) Performed By: #### L506.1000 #### [facility] [address] [place], [address] HEPATITIS C ANTIBODIES Collected: 02/23/2018 Status: F Source: [place]EL[place] 11:37 AM [facility] REPOSITORY TYPE CODE TESTS RESULT OUT OF RANGE REFERENCE UNITS LAB L3100.0650 Normal HEP C AB Result Comment: TEST RESULT LIMITS HCV Antibody Hep C Virus Ab <0.1 s/co ratio 0.0 - 0.9 Negative: < 0.8 Indeterminate: 0.8 - 0.9 Positive: > 0.9 The CDC recommends that a positive HCV antibody result be followed up with a HCV Nucleic Acid Amplification test (521799). TESTING PERFORMED AT [facility]. ORIGINAL REPORT ON FILE IN LAB CONTAINS ADDITIONAL TEST SITE INFORMATION. Performed By: #### L3100.0625 #### [facility] (refer to report for specific site) refer to report for address and phone number CARDIOLOGY VISIT Observed: 01/08/2018 Status: F Source: MELIA REPORT 1:35 PM [facility] REPOSITORY [facility] [address] [place] [address] OFFICE VISIT Date of Service: 01/08/18 MR#: [id number] Acct: [id number] Name: SHAWN TIMMONS Rep #: [id number] : 1950 Provider: Phillip Soler MD Age/Sex: 67/F [place] [facility] [place]: Signed HPI HPI Details: SHAWN TIMMONS, is a 67 F who presents to the office today for for outpatient cardiovascular follow-up. Since her last visit of approximately 1 year ago she states overall she has been doing well from a cardiac standpoint. She denies any ongoing issues of resting or exertional chest discomfort suspicious for angina pectoris. There has been no issues suspicious for CHF or pulmonary edema. There has been no near syncope or syncope. She has not had to require any additional cardiovascular testing other than lipid labs performed by her primary care physician which she states have been under good control. Intake Vital Signs01/08/18 Height 5 ft 2 in 01/08/18 Weight: 216 lb 01/08/18 Body Mass Index (BMI) 39.4 01/08/18 Blood Pressure 120/70 Intake Visit Reasons: 1 Y FU Allergies amoxicillin Allergy (Verified 01/08/18 13:02) Rash bee venom protein (honey bee) Allergy (Verified 01/08/18 13:02) Swelling Medications Aspirin [Aspir-Low] 81 mg PO QHS 07/27/17 [History Confirmed 01/08/18] Atorvastatin Calcium [Lipitor] 40 mg PO QHS 07/27/17 [History Confirmed 01/08/18] Ergocalciferol [Vitamin D] 50,000 unit PO QMONTH 07/27/17 [History Confirmed 01/08/18] Lisinopril/Hydrochlorothiazide [Zestoretic 20-12.5 mg Tablet] 1 ea PO QHS 07/27/17 [History Confirmed 01/08/18] PFSH Medical History Palpitations (Acute) Nonrheumatic aortic (valve) stenosis (Chronic) Left ventricular hypertrophy (Acute) Hyperlipidemia (Acute) Hypertension (Chronic) Anxiety (Acute) Endometrial hyperplasia without atypia, simple (Acute) History of hysteroscopy (Resolved) Surgical History History of tubal ligation (Chronic) History of cardiac catheterization (Resolved 04/13/11) History of dilatation and curettage (Resolved) History of eye surgery (Resolved) History of tonsillectomy (Resolved) Family History Aunt Cancer Lung Uncle CVA (cerebral vascular accident) Father Heart disease Social History Smoking Status: Never smoker alcohol intake: never substance use type: does not use caffeine: Yes what type of physical activity do you participate in: none seatbelt use: always additional social history: He- Retired ROS Const Const: Negative for fatigue, weakness, weight gain, weight loss, frequent falls or excessive sweating Eyes Eyes: Negative for change in vision, blurry vision or transient loss of vision ENT ENT: Negative for dizziness or balance problems Cardio Chest Pain: No Edema: Bilateral (slight) Muscle aches with walking: None Resp Respiratory: Positive for SOB with activity (only going uphill, breathing at baseline); negative for SOB at rest GI GI: Negative vomiting or vomiting blood/hematemesis : Negative for hematuria Musc Musc: Negative for balance problems, muscle aches/ myalgia, muscle weakness or joint pain Skin Skin: Negative non-healing lesions or rash Neuro Neuro: Negative for weakness, blurry vision, dizziness, lightheadedness, frequent falls or orthostatic symptoms Mundo Hematologic/Lymphatic: Negative for easy bleeding Endo Endo: Negative for fatigue or excessive sweating Psych Psych: Negative for anxiety or depression Allergy Allergy/Immunology: Negative for hives, Negative for rash Assessment AND Plan 1. Nonrheumatic aortic (valve) stenosis I35.0 Plan At the present time she appears to be doing well. She will continue to be followed by history, exam, and echocardiogram. She will be tentatively scheduled for an upcoming echocardiogram to be performed in approximately 1 year prior to her next visit unless needed sooner. This will be to monitor her aortic valve stenosis. 2. Hyperlipidemia, unspecified hyperlipidemia type E78.5 Plan She states her lipid labs have been under good control. She will continue medical management and follow-up with her primary care physician. 3. Essential hypertension I10 Plan Her blood pressure appears to be under good control today. She will continue medical therapy and follow-up. 4. Palpitations R00.2 Plan She is not describing any ongoing palpitations or rapid rates. Again she will continue medical management and follow-up. Orders Orders: Plan Detail Additional Comments Overall she will be scheduled for an outpatient visit in approximately 1 year unless needed sooner. Thank you for allowing me to participate in the care of your patient. Please don't hesitate to call if any issues arise. This note was generated using a voice recognition system and there may be incorrect words, spelling or punctuation that were not noted when reviewing the office note prior to saving. Follow Up 1 Year (PFM) Coding Level of Care Code Off vis,est,level 4 Diagnoses Nonrheumatic aortic (valve) stenosis I35.0 Hyperlipidemia, unspecified hyperlipidemia type E78.5 Hyperlipidemia type: unspecified Essential hypertension I10 Hypertension type: essential hypertension Palpitations R00.2 Coding Level of Care Code Off vis,est,level 4 Diagnoses Nonrheumatic aortic (valve) stenosis I35.0 Hyperlipidemia, unspecified hyperlipidemia type E78.5 Hyperlipidemia type: unspecified Essential hypertension I10 Hypertension type: essential hypertension Palpitations R00.2 01/08/18 1335 <Electronically signed by Phillip Soler MD> Date Phillip Soler MD Cosigner Signature: Date (if applicable) CC: Abelino Ring MD RETAIL INTERIOR DESIGNER OFFICE VISIT Observed: 10/31/2017 Status: F Source: MELIA REPORT 11:12 AM [facility] [address] [place] [address] OFFICE VISIT Date of Service: 08/24/17 MR#: [id number] Acct: [id number] Name: SHAWN TIMMONS Rep #: [id number] : 1950 Provider: Nataly Wells MD Age/Sex: 66/F Location: [facility] [place] Status: Signed Intake Vital Signs08/24/17 Height 5 ft 2 in 08/24/17 Weight: 224 lb 8 oz 08/24/17 Body Mass Index (BMI) 41.1 08/24/17 Blood Pressure 144/67 Intake Visit Reasons: IUD INSERTION Chief Complaint: IUD Insertion Estate Attorney Required: No Is patient in pain?: Yes Allergies amoxicillin Allergy (Verified 07/27/17 10:48) Rash bee venom protein (honey bee) Allergy (Verified 07/27/17 10:48) Swelling Medications Aspirin [Aspir-Low] 81 mg PO QHS 07/27/17 [History Confirmed 08/24/17] Atorvastatin Calcium [Lipitor] 40 mg PO QHS 07/27/17 [History Confirmed 08/24/17] Ergocalciferol [Vitamin D] 50,000 unit PO QMONTH 07/27/17 [History Confirmed 08/24/17] Lisinopril/Hydrochlorothiazide [Zestoretic 20-12.5 mg Tablet] 1 ea PO QHS 07/27/17 [History Confirmed 08/24/17] Misoprostol [Cytotec] 100 mcg PO UD 08/03/17 [History Confirmed 08/24/17] Is last menstrual period known: No Post menopausal: Yes Patient : No : No PFSH PFSH Medical History Endometrial hyperplasia without atypia, simple (Acute) Hyperlipidemia (Acute) Hypertension (Chronic) Surgical History H/O eye surgery (Acute) History of hysteroscopy (Acute) Tonsilectomy (Acute) heart cath (Acute) Family History Aunt Cancer Lung Uncle CVA (cerebral vascular accident) Father Heart disease Social History Smoking Status: Never smoker alcohol intake: never substance use type: does not use caffeine: Yes what type of physical activity do you participate in: none seatbelt use: always additional social history: He- Retired Pregancy History 1 Elective abortions Hx Para 1 Spontaneous abortions Past Pregnancies Del. DatName GA/WeeksOutcome Route [facility] LocaProviderFOB e ht en ia tn Unknown 1972 Sco tt HPI IUD INSERTION: Details: SHAWN TIMMONS is a 66 year old who presents for iud insertion for enometrial hyperplasia ROS Const Constitutional: Reports system reviewed and no additional complaints, except as docu Details: AUB Exam Const General: cooperative, healthy appearing, comfortable, no acute distress Nutritional Appearance: average body habitus External Female Exam: normal external appearance, normal appearance of the urethra Urethra: normal appearance of the urethra Speculum Exam - Vagina: normal appearance of the vagina, normal vaginal discharge Speculum Exam - Cervix: normal appearance of the cervix Office Procedures IUD Insertion IUD GC/Chlamydia:: not done Test: Yes Not Applicable Consent Signed: Yes Time out checklist: patient, procedure, site marked/identified, positioning of patient, supplies available, allergies confirmed, team agrees on procedure IUD: Yes Mirena Time out time: 13:44 Lot number: [id number] date: 08/24/22 Details: Sign in Communication: Completed Sign out documentation: Completed The uterus sounded to 9 cm. After prepping the cervix with betadine and using sterile technique, the cervix was grasped with a single tooth tenaculum and the IUD was inserted without difficulty and the string was cut to 3cm from the external os of the cervix. All instruments were removed from the vagina and excellent hemostasis was noted. Procedure Summary: patient tolerated the procedure well without complication. Assessment AND Plan Problems 1. Endometrial hyperplasia without atypia, simple N85.01 mirena IUD for treatment Patient Instructions IUD insertion and patient plans fu in several months, biopsy in december. Plan Detail Follow Up 6 Months (biopsy) 10/31/17 1112 <Electronically signed by Nataly Wells MD> Date Nataly Wells MD Cosigner Signature: Date (if applicable) CC: ALLERGIES ALLERGIES DATE TYPE / CODE NAME / CODE REACTION SEVERITY SOURCE 09/12/2018 Drug amoxicillin/F0 Rash Unknown [facility] [address](SNOMED M) Repository CT) 09/12/2018 Drug bee venom Swelling Unknown [facility] Allergy/4160 protein ([facility] 12411(SNOMED bee)/[id number] Repository CT) 5(RXNORM) ENCOUNTERS ENCOUNTERS ADMIT/DISCHARGE ACCOUNT ADMITTING ENCOUNTER LOCATION SOURCE NUMBER CLASS 09/12/2018/ [id number] Ambulatory BMSBuilding:B Melia 8 1 [facility] Repository 09/05/2018 [id number] Ambulatory [place] 1 [facility] ing:LABSPEC Repository 09/05/2018/ [id number] Ambulatory BMSBuilding:B [place] 8 9 [facility] Repository 08/31/2018 [id number] Ambulatory [place] 3 [facility] ing:OPUS Repository 08/30/2018 [id number] Ambulatory [place]ia [place] 4 [facility] ing:OPBI Repository 08/28/2018 [id number] Ambulatory [place] 2 [facility] ing:OPBD Repository 06/26/2018/ [id number] Ambulatory BMSBuilding:B [place] 8 1 [facility] Repository 05/28/2018 [id number] Ambulatory [place] 4 [facility] ing:POLAB3 Repository 02/28/2018 [id number] Ambulatory [place] 5 [facility] ing:LABSPEC Repository 02/28/2018/ [id number] Ambulatory BMSBuilding:B [place] 8 4 [facility] Repository 02/23/2018 [id number] [place] [facility] ing:LAB Repository 01/08/2018/ [id number] Ambulatory BMSBuilding:B [place] 8 7 [facility] Repository 12/20/2017 [id number] Ambulatory [place]ia [place] 4 [facility] ing:POLAB3 Repository 11/27/2017 [id number] Ambulatory BMSBuilding:B [place] 4 [facility] Repository 08/24/2017/ [id number] Ambulatory BMSBuilding:B [place] 7 7 [facility] Repository PAYERS PAYERS ENCOUNTER GUARANTOR PAYER SUBSCRIBER SOURCE 09/12/2018 SHAWN F Primary SHAWN F Melia [id number] APPLE Insurance:MEDICARE REHMDOB: [facility] [id number] Repository [address]Hsw: [phone]) [id number] [phone] (HP) Date:2018-09-12 09/12/2018 Secondary SHAWN F [place] Insurance:MEDICAL REHMDOB: [facility] [id number] Hospital Number: Repository [id number] Date:9534-68-53ZN [address] [address]OM: 09/12/2018 Tertiary NOT GIVENUNK [place] Insurance:SELF PAY [facility] Effective Repository Date:2018-09-12 09/05/2018 HE Dick [id number] Primary [place]N [place] Insurance:MEDICARE REHMDOB: [place] PART A [facility] [id number] Hospital [address]Ort: (330) Number: Repository [phone] (HP) [id number] Date:2018-09-05 09/05/2018 Secondary SHAWN F [place] Insurance:MEDICAL REHMDOB: [facility] [id number] Hospital Number: Repository [id number] Date:3919-98-53NQ[address] [address]TR: 09/05/2018 Tertiary NOT GIVENUNK [place] Insurance:SELF PAY [facility] Number: Effective Repository Date:2018-09-05 09/05/2018 HE Dick [id number] Primary SHAWN F [place] Insurance:MEDICARE REHMDOB: [place] PART [place] [id number] Hospital [address]Tyg: (330) Number: Repository [phone] (HP) [id number] Date:2018-09-04 09/05/2018 Secondary SHAWN F [place] Insurance:MEDICAL REHMDOB: [facility] [id number] Hospital Number: Repository [id number] Date:6821-90-45FP [address] [address]VI: 09/05/2018 Tertiary NOT GIVENUNK [place] Insurance:SELF PAY [facility] Number: Effective Repository Date:2018-09-05 08/31/2018 HE Dick [id number] Primary SHAWN F [place] Insurance:MEDICARE REHMDOB: [place] PART A [facility] [id number] Hospital [address]See: (330) Number: Repository [phone] (HP) [id number] Date:2018-08-31 08/31/2018 Secondary SHAWN F [place] Insurance:MEDICAL REHMDOB: [facility] [id number] Hospital Number: Repository [id number] Date:0917-68-52VE [address] [address]US: 08/31/2018 Tertiary NOT GIVENUNK [place] Insurance:SELF PAY [facility] Hospital Number: Effective Repository Date:2018-08-31 08/30/2018 HE Dick [id number] Primary SAHWN F [place] Insurance:MEDICARE REHMDOB: [place] PART A [facility] [id number] Hospital [address]Dac: (330) Number: Repository [phone] (HP) [id number] Date:2018-08-21 08/30/2018 Secondary SHAWN F [place] Insurance:MEDICAL REHMDOB: [facility] [id number] Hospital Number: Repository [id number] Date:7866-79-04CM [address] [address]EX: 08/30/2018 Tertiary NOT GIVENUNK [place] Insurance:SELF PAY [facility] Hospital Number: Effective Repository Date:2018-08-21 08/28/2018 HE Dick [id number] Primary SHAWN F [place] Insurance:MEDICARE REHMDOB: [place] PART A [facility] [id number] Hospital [address]Iwv: (330) Number: Repository [phone] (HP) [id number] Date:2018-06-18 08/28/2018 Secondary SHAWN F [place] Insurance:MEDICAL REHMDOB: [facility] [id number] Hospital Number: Repository [id number] Date:5300-05-70SI [address] [address]CZ: 08/28/2018 Tertiary NOT GIVENUNK [place] Insurance:SELF PAY [facility] Number: Effective Repository Date:2018-06-18 06/26/2018 He Dick [id number] Primary SHAWN F [place] Insurance:MEDICARE REHMDOB: [place] PART [place] [facility] [id number] Hospital [address]Itw: (330) Number: Repository [phone] () [id number] Date:2018-06-18 06/26/2018 Secondary SHAWN F [place] Insurance:MEDICAL REHMDOB: [facility] [id number] Hospital Number: Repository [id number] Date:0794-89-43CQ [address] [address]MH: 06/26/2018 Tertiary NOT GIVENUNK [place] Insurance:SELF PAY [facility] Hospital Number: Effective Repository Date:2018-06-26 05/28/2018 He Dick [id number] Primary [place]N [place] Insurance:MEDICARE REHMDOB: [place] PART A [facility] [id number] Hospital [address]Loe: (330) Number: Repository [phone] () [id number] Date:2018-05-28 05/28/2018 Secondary SHAWN F [place] Insurance:MEDICAL REHMDOB: [facility] [id number] Hospital Number: Repository [id number] Date:2038-14-84PL [address] [address]UF: 05/28/2018 Tertiary NOT GIVENUNK [place] Insurance:SELF PAY [facility] Hospital Number: Effective Repository Date:2018-05-28 02/28/2018 He Dick [id number] Primary SHAWN F [place] Insurance:MEDICARE REHMDOB: [place] PART A [facility] [id number] Hospital [address]Djp: (330) Number: Repository [phone] () [id number] Date:2018-02-28 02/28/2018 Secondary SHAWN F [place] Insurance:MEDICAL REHMDOB: [facility] [id number] Hospital Number: Repository [id number] Date:7487-60-57PA[address] [address]EW: 02/28/2018 Tertiary NOT GIVENUNK [place] Insurance:SELF PAY [facility] Number: Effective Repository Date:2018-02-28 02/28/2018 He [id number] Primary SHAWN F [place] Insurance:MEDICARE REHMDOB: [place] PART A [facility] [id number] Hospital [address]Jey: (330) Number: Repository [phone] () [id number] Date:2018-01-25 02/28/2018 Secondary SHAWN F [place] Insurance:MEDICAL REHMDOB: [facility] [id number] Hospital Number: Repository [id number] Date:0643-75-85AO [address] [address]TT: 02/28/2018 Tertiary NOT GIVENUNK [place] Insurance:SELF PAY [facility] Number: Effective Repository Date:2018-02-28 02/23/2018 He Dick [id number] Primary SHAWN F [place] Insurance:MEDICARE REHMDOB: [place] PART A [facility] [id number] Hospital [address]89[address]Nbg: (330) Number: Repository [phone] () [id number] Date:2017-12-20 02/23/2018 Secondary SHAWN F [place] Insurance:MEDICAL REHMDOB: [facility] [id number] Hospital Number: Repository [id number] Date:2252-94-76CY[address] [address]KT: 02/23/2018 Tertiary NOT GIVENUNK [place] Insurance:SELF PAY [facility] Hospital Number: Effective Repository Date:2017-12-20 01/08/2018 He [id number] Primary SHAWN F [place] Insurance:MEDICARE REHMDOB: [place] PART [place] [facility] [id number] Hospital [address]Ghn: (330) Number: Repository [phone] () [id number] Date:2017-09-04 01/08/2018 Secondary SHAWN F [place] Insurance:MEDICAL REHMDOB: [facility] [id number] Hospital Number: Repository [id number] Date:0464-01-80[place] 324[address]01[address]WP: 01/08/2018 Tertiary NOT GIVENUNK [place] Insurance:SELF PAY [facility] Hospital Number: Effective Repository Date:2018-01-08 12/20/2017 He Dick [id number] Primary [place] Insurance[place] [facility] [id number] Hospital [address]Xdb: (330) Number: Repository [phone] () [id number] Date:6048-05-11[place] 3249801[address]WP: 12/20/2017 Secondary SHAWN F [place] Insurance:MEDICARE REHMDOB: [facility] PART A [facility] [id number] Hospital Number: Repository [id number] Date:2017-12-20 12/20/2017 Tertiary NOT GIVENUNK [place] Insurance:SELF PAY [facility] Hospital Number: Effective Repository Date:2017-12-20 11/27/2017 He Dick [id number] Primary SHAWN F [place] Insurance[place]MEDICAL [place] [facility] [id number] Hospital [address]Fbx: (330) Number: Repository [phone] () [id number] Date:[id number] [address]JS: 11/27/2017 Secondary SHAWN F [place] Insurance:MEDICARE REHMDOB: [place] [facility] A [facility] [id number] Hospital Number: Repository [id number] Date:2017-11-27 11/27/2017 Tertiary NOT GIVENUNK [place] Insurance:SELF PAY [facility] Number: Effective Repository Date:2017-11-27 08/24/2017 He Dick [id number] Primary SHAWN [place] Insurance:MEDICARE REHMDOB: [place] PART A [facility] [id number] Hospital 145[address]Qup: 330) Number: Repository [phone] ( [id number] Date:2017-08-19 08/24/2017 Secondary SHAWN Kerry Cárdenas Insurance:MEDICAL REHMDOB: [facility] [id number] Hospital Number: Repository [id number] Date:5992-93-74[address], [place] [address]SS: 08/24/2017 Tertiary NOT GIVENUNK [place] Insurance:SELF PAY [facility] Number: Effective Repository Date:2017-08-19
== END ==
PROVIDERS: Family Provider Family Medicine Geriatric Medicine; PCP Family Medicine Geriatric Medicine; Visit Provider Family Medicine Geriatric Medicine
DX: Z78.0 Asymptomatic menopausal state (principal)
CPT/HCPCS: 77080

== ENCOUNTER → 2018-08-30 09:19 | Outpatient (CLI) | payer MEDICARE, OTHER, SELFPAY ==
[2018-06-26 10:26] VITALS: BMI 35.9
--- NOTE | 2018-08-30 09:23 | BI_ITS ---
MAMMOGRAPHY - BILATERAL SCREENING REASON FOR EXAM: Female, 67 years old. Routine annual screening examination. PERTINENT HISTORY: Sister with breast cancer. TECHNIQUE: Digital bilateral breast dimple (3D mammographic acquisition) in the CC and MLO projections. 2-D mediolateral oblique (MLO) and craniocaudad (CC) views of both breasts were obtained. CAD: Full Field Digital Mammography with Computer Added Detection was performed. COMPARISON: Comparison is made with prior study dated August 10, 2016 and March 17, 2014. FINDINGS: Breast Composition: The breasts are heterogeneously dense, which may obscure small masses. There are no dominant masses or suspicious calcifications. Questionable 1 cm x 1.3 cm nodular density in the inferior central portion of the right breast. Correlation with ultrasound is recommended. No other significant abnormalities are identified. BI/SCREENING MAMM (CAD), BILAT IMPRESSION: I suspect a 1 cm x 1.3 cm nodular density in the inferior central portion of the right breast. Correlation with ultrasound is recommended. ASSESSMENT CATEGORY: BIRADS Category 0: Incomplete. Need additional imaging evaluation. A letter regarding these results will be sent to the patient by the facility within 30 days. Approximately 10% of breast cancers are not detected by mammography. A normal mammogram should not delay biopsy of a clinically suspicious abnormality. [id number] Electronically Signed: Jake Espinosa MD at 10:22 EST Tel [phone], Service support ,
--- OUTSIDE RECORDS SUMMARY | 2018-10-16 02:53 | XMS RPT_ITS ---
:1950 Author Organization [place] Support Name Relationship Address Phone EDVIN MONROE Unavailable [address] + [place] [address] R Unavailable Unavailable Unavailable IAIN HE Unavailable [address] + [place] [address] EDVIN MONROE Unavailable [address] + [place] [address] R Unavailable Unavailable Unavailable IAIN, HE Unavailable [address] + [place] [address] EDVIN MONROE Unavailable [address] + [place] [address] R Unavailable Unavailable Unavailable IAIN, HE Unavailable [address] + [place] [address] EDVIN MONROE Unavailable [address] + [place] [address] R Unavailable Unavailable Unavailable IAIN, HE Unavailable [address] + [place] [address] EDVIN MONROE Unavailable [address] + [place] [address] R Unavailable Unavailable Unavailable IAIN, HE Unavailable [address] + [place] [address] EDVIN MONROE Unavailable [address] + [place] [address] R Unavailable Unavailable Unavailable IAIN, HE Unavailable [address] + [place] [address] EDVIN MONROE Unavailable [address] + [place] [address] R Unavailable Unavailable Unavailable IAIN, HE Unavailable [address] + [place] [address] EDVIN MONROE Unavailable [address] + [place] [address] R Unavailable Unavailable Unavailable IAINABISAI NelsonER Unavailable [address] + [place] [address] EDVIN MONROE Unavailable [address] + [place] [address] R Unavailable Unavailable Unavailable IAINHE Nelson Unavailable [address] + [place] [address] EDVIN MONROE Unavailable [address] + [place] [address] R Unavailable Unavailable Unavailable IAIN, HE Unavailable [address] + [place] [address] EDVIN MONROE Unavailable [address] + [place] [address] R Unavailable Unavailable Unavailable IAINABISAI NelsonER Unavailable [address] + [place] [address] EDVIN MONROE Unavailable [address] + [place] [address] R Unavailable Unavailable Unavailable IAIN, HE Unavailable [address] + [place] [address] BETTERTONEDVIN Unavailable [address] + [place] [address] R Unavailable Unavailable Unavailable IAINHE Nelson Unavailable [address] + [place] [address] EDVIN MONROE Unavailable [address] + [place] [address] R Unavailable Unavailable Unavailable IAINABISAI NelsonER Unavailable [address] + [place] [address] EDVIN MONROE Unavailable [address] + [place] [address] R Unavailable Unavailable Unavailable IAIN, HE Unavailable [address] + [place] [address] Care Team Providers Name Role Phone Jhonathan, [...] Jhonathan, Abelino Chi Primary Care Unavailable Nataly Wlels Attending Unavailable Jhonathan, Abelino Chi Referring Unavailable [...] N95.9 - Unspecified Jhonathan, Abelino Chi Active [place] menopausal and [facility] perimenopausal Hospital disorder / Repository N95.9(ICD-10) 06/26/2018 Unknown Z30.432 - Encounter Marcanthony, Active [place] for removal of [facility] Hospital contraceptive device Repository / Z30.432(ICD-10) 06/26/2018 Unknown N85.01 - Benign Marcanthony, Active [place] endometrial [facility] hyperplasia / Hospital N85.01(ICD-10) Repository 03/14/2018 Unknown I10 - Essential Jhonathan, Abelino Chi Active [place] (primary) [facility] hypertension / Hospital I10(ICD-10) Repository 01/08/2018 Unknown R00.2 - Palpitations Phillip Soler Active [place] / R00.2(ICD-10) [facility] Hospital Repository PROCEDURES PROCEDURES No Procedure Records FoundRESULTS RESULTS SURGERY VISIT REPORT Observed: 09/12/2018 Status: F Source: [place] 1:57 PM [facility] HOSPITAL REPOSITORY [facility] [address] [place] [address] OFFICE VISIT Date of Service: 09/12/18 MR#: [id number] Acct: [id number] Name: SHAWN TIMMONS Rep #: [id number] : 1950 Provider: Portia Lim PA-C Age/Sex: 67/F Location: [facility] Status: Signed Intake Intake Visit Reasons: lump near biopsy site Chief Complaint: abn mammo/ US right Bottle Blower Required: No Is patient in pain?: No [...] Diagnoses Abnormal mammogram R92.8 Hematoma T14.8XXA 09/12/18 9417 <Electronically signed by Portia Lim PA-C> Date Portia Lim PA-C Cosigner Signature: Date (if applicable) CC: Abelino Ring MD SURGERY VISIT REPORT Observed: 09/10/2018 Status: F Source: [place] 4:09 PM [facility] REPOSITORY [facility] [address] [place] [address] OFFICE VISIT Date of Service: 09/05/18 MR#: [id number] Acct: [id number] Name: SHAWN TIMMONS Rep #: [id number] : 1950 Provider: Dawit Sorensen MD Age/Sex: 67/F Location: [facility] Status: Signed Intake Vital Signs09/05/18 Height 5 ft 1.5 in 09/05/18 Weight: 199 lb 7 oz 09/05/18 Body Mass Index (BMI) 37.0 09/05/18 Blood Pressure 182/75 H Intake Visit Reasons: Abn Mammo Rt Breast [facility] Mammo 08/30 US 08/31 Chief Complaint: abn mammo/ US right Bottle Blower Required: No Is patient in pain?: No [...] blood clots Neuro Neurologic: No weakness Exam [facility] Head: normal to inspection, normocephalic, atraumatic [...] well. Alert Skyler Yes Biopsy Breast Biopsy: 15541 US Guidance Procedure Time Out Time Out [...] Orders: Coding Level of Care Code Attention Day Care Teacher Diagnoses Abnormal mammogram of right breast R92.8 Additional Codes Biopsy - Breast Biopsy: 13970 US Guidance (58206) Comment I would like her to be billed for both the office component and the biopsy component 09/10/18 1609 <Electronically signed by Dawit Sorensen MD> Date Dawit Sorensen MD Cosigner Signature: Date (if applicable) CC: Abelino Ring MD BREAST BIOPSY Observed: 09/04/2018 Status: F Source: [place] (CHOOSE SITE) 2:30 PM [facility] REPOSITORY Patient: SHAWN TIMMONS : 1950 (67/F) Acct Num: [id number] Phys: Dawit Sorensen MD Unit Num: [id number] Loc: [facility] Specimen: [id number] Received: 09/05/18 - 1546 Spec Type: BREAST [...] in one cassette. / AM:quirino TC:5 CPT: 15193 HEADER OPERATION: Ultrasound-guided mammotome biopsy right breast [...] on file> Performed By: #### PBRBX #### [facility] [address] [place], [place], [address] BREAST LIMITED Observed: 08/31/2018 Status: F Source: [place] UNILATERAL 10:57 AM [facility] REPOSITORY [facility] Imaging Services [address] [place] [address] Breast Limited Unilateral MR#: [id number] Acct: [id number] Name: SHAWN TIMMONS Rep #: [id number] : 1950 F 67 From: Jake Espinosa MD PCP: Abelino Ring MD, Chi Status: REG CLI Study: Breast Limited Unilateral Date of Exam: 08/31/18 Exam# [id number] Ordering Dr: Abelino Ring MD STUDY: ULTRASOUND [...] Jake Espinosa MD at 13:40 EST Tel [phone], Service support , CC: Abelino Ring MD Electrical Design Technician: Signed SCREENING MAMM (CAD), Observed: 08/30/2018 Status: F Source: [place] BILAT 9:24 AM [facility] REPOSITORY [facility] Imaging Services [address] [place] [address] SCREENING MAMM (CAD), BILAT MR#: [id number] Acct: [id number] Name: SHAWN TIMMONS Rep #: [id number] : 1950 F 67 From: Jake Espinosa MD PCP: Abelino Ring MD, Chi Status: REG CLI Study: SCREENING MAMM (CAD), BILAT Date of Exam: 08/30/18 Exam# [id number] Ordering Dr: Abelino Ring MD MAMMOGRAPHY - [...] delay biopsy of a clinically suspicious abnormality. [id number] Electronically Signed: Jake Espinosa MD at 10:22 EST Tel [phone], Service support , CC: Abelino Ring MD Electrical Design Technician: Signed DEXA BONE DENSITY Observed: 08/28/2018 Status: F Source: [place] STUDY 2:30 PM [facility] REPOSITORY [facility] Imaging Services [address] [place] [address] Dexa Bone Density Study MR#: [id number] Acct: [id number] Name: SHAWN TIMMONS Rep #: [id number] : 1950 F 67 From: Jake Espinosa MD PCP: Abelino Ring MD, Chi Status: REG CLI Study: Dexa Bone Density Study Date of Exam: 08/28/18 Exam# [id number] Ordering Dr: Abelino Ring MD STUDY: DUAL [...] Jake Espinosa MD at 12:45 EST Tel [phone], Service support , CC: Abelino Ring MD Electrical Design Technician: Signed BROADCAST TECHNICIAN OFFICE VISIT Observed: 06/26/2018 Status: F Source: [place] REPORT 10:43 AM [facility] [address] [place] [address] OFFICE VISIT Date of Service: 06/26/18 MR#: [id number] Acct: [id number] Name: SHAWN TIMMONS Rep #: [id number] : 1950 Provider: Nataly Wells MD Age/Sex: 67/F Location: [facility] Status: Signed Intake Vital Signs06/26/18 Height 5 ft 2 in 06/26/18 Weight: 196 lb 2 oz 06/26/18 Body Mass Index (BMI) 35.9 06/26/18 Blood Pressure 150/98 H Intake Visit Reasons: IUD REMOVAL Chief Complaint: IUD Removal Bottle Blower Required: No Is patient in pain?: No [...] abortions Past Pregnancies Del. DatName GA/WeeksOutcome Route [facility] LgAnesthesD LocaProviderFOB e ht en [...] 05/28/2018 Status: F Source: [place] 2:55 PM [facility] REPOSITORY TYPE CODE TESTS RESULT OUT OF [...] Lymph 2.67 Performed By: #### L100.0100 #### [facility] [address] [place], [address] VITAMIN D,25 HYDROXY Collected: 05/28/2018 Status: F Source: [place] 2:55 PM [facility] REPOSITORY TYPE CODE TESTS RESULT OUT OF RANGE REFERENCE UNITS LAB L506.1000 29.95-100.01 ng/mL Normal Vitamin D 37.6 25-OH Result Comment: Vitamin D 25(OH) Status Range Deficiency <20 ng/mL (50nmol/L) Insuffciency 20 - 30 ng/mL (50 - 75 nmol/L) Sufficiency 30 - 100 ng/mL (75 - 250 nmol/L) Toxicity >100 ng/mL (>250 nmol/L) Performed By: #### L506.1000 #### [facility] [address] [place], [address] COMPREHENSIVE METABOLIC Collected: 05/28/2018 Status: F [facility] [place] [facility] 2:55 PM [facility] REPOSITORY TYPE CODE TESTS RESULT OUT OF [...] 9 Performed By: #### L500.4050, L501.9520 #### [facility] [address] [place], [place], [address] THYROID STIM HORMONE Collected: 05/28/2018 Status: F Source: [place] (TSH) 2:55 PM [facility] REPOSITORY TYPE CODE TESTS RESULT OUT OF RANGE REFERENCE UNITS LAB L501.9520 0.358-3.74 uIU/mL Normal TSH 1.75 Performed By: #### L500.4050, L501.9520 #### [facility] [address] [place], [place], [address] HEPATITIS C ANTIBODIES Collected: 05/28/2018 Status: F Source: [place] 2:55 PM [facility] REPOSITORY TYPE CODE TESTS RESULT OUT OF RANGE REFERENCE UNITS LAB L3100.0650 0.0-0.9 s/co ratio Normal HEP C AB <0.1 Result Comment: Negative: < 0.8 Indeterminate: 0.8 - 0.9 Positive: > 0.9 The CDC recommends that a positive HCV antibody result be followed up with a HCV Nucleic Acid Amplification test (485327). Performed at: - [facility] [address] [id number] Brass Molder: Ramon Dooley PhD, Phone: [phone] Performed By: #### L3100.0625 #### [facility] (refer to report for specific site) refer to report for address and phone number DOWNTIME REPORT Observed: 03/08/2018 Status: F Source: [place] 11:51 AM [facility] RE[facility] Medical Records Department [address] [place] [address] Downtime Report MR#: [id number] Acct: [id number] Name: SHAWN TIMMONS Rep #: [id number] : 1950 67 From: Ethan Tao PCP: Jhonathan LUGO,Abelino Mosher Status: REG CLI This patient was seen during an EMR downtime February 19, 2018 - February 26, 2018. This patient may have a combination of paper and electronic documentation or all paper documentation. All documentation is viewable within the e-chart portion of Bill Me Later for each patient visit. BROADCAST TECHNICIAN OFFICE VISIT Observed: 03/04/2018 Status: F Source: [place] REPORT 2:11 PM [facility] [address] [place] [address] OFFICE VISIT Date of Service: 02/28/18 MR#: [id number] Acct: [id number] Name: SHAWN TIMMONS Rep #: [id number] : 1950 Provider: Nataly Wells MD Age/Sex: 67/F Location: [facility] Status: Signed Intake Vital Signs02/28/18 Height 5 ft 2 in 02/28/18 Weight: 205 lb 2 oz 02/28/18 Body Mass Index (BMI) 37.5 02/28/18 Blood Pressure 126/66 Intake Visit Reasons: 6 MONTH FOLLOW UP - IUD Bottle Blower Required: No Is patient in pain?: No [...] abortions Past Pregnancies Del. DatName GA/WeeksOutcome Route [facility] LocaProviderFOB e ht en tn Unknown 1972 [...] versus using the mirena x [facility] results Orders Orders: Coding Level of Care Code Off vis,est,level 3 Diagnoses Endometrial hyperplasia without atypia, simple N85.01 Additional Codes Endometrial Biopsy (06207) 03/04/18 1411 <Electronically signed by Nataly Wells MD> Date Nataly Wells MD Cosigner Signature: Date (if applicable) CC: ENDOMETRIAL BX/CURETTINGS Observed: 02/28/2018 Status: F Source: [place] 12:00 AM [facility] REPOSITORY Patient: SHAWN TIMMONS : 1950 (67/F) Acct Num: [id number] Phys: Russell LUGO,Nataly Unit Num: [id number] Loc: [facility] Specimen: [id number] Received: 02/28/181641 Spec Type: ENDOM BX/C TISSUES [...] one cassette. / SJ:quirino 03/01/18 TC:5 CPT: 40026 HEADER OPERATION: Endometrial biopsy PRE-OP DIAGNOSIS: Abnormal uterine bleeding TISSUE SUBMITTED: Endometrial lining MICROSCOPIC DESCRIPTION Slides are reviewed. MICROSCOPIC DIAGNOSIS Endometrium, biopsy: Fragments of benign polypoid endometrium with cystic change. Focal pseudodecidual change. AM:quirino 03/02/18 Signed Yousif Crys 03/02/18 <signature on file> Performed By: #### PEMB #### [facility] [address] [place], [address] COMPREHENSIVE METABOLIC Collected: 02/23/2018 Status: F Source: [place] KATYA 11:37 AM [facility] REPOSITORY Order Comment: 50 TYPE CODE TESTS [...] 10 Performed By: #### L500.4050, L501.9520 #### [facility] [address] [place], [place], [address] THYROID STIM HORMONE Collected: 02/23/2018 Status: F Source: [place] (TSH) 11:37 AM [facility] REPOSITORY Order Comment: 50 TYPE CODE TESTS RESULT OUT OF RANGE REFERENCE UNITS LAB L501.9520 0.358-3.74 uIU/mL Normal TSH 1.91 Performed By: #### L500.4050, L501.9520 #### [facility] [address] [place], [place], [address] CBC W/DIFF, AUTOMATED Collected: 02/23/2018 Status: F Source: [place] 11:37 AM [facility] REPOSITORY TYPE CODE TESTS RESULT OUT OF [...] Lymph 2.76 Performed By: #### L100.0100 #### [facility] [address] [place], [address] VITAMIN D,25 HYDROXY Collected: 02/23/2018 Status: F Source: [place] 11:37 AM [facility] REPOSITORY TYPE CODE TESTS RESULT OUT OF RANGE REFERENCE UNITS LAB L506.1000 29.95-100.01 ng/mL Normal Vitamin D 53.4 25-OH Result Comment: Vitamin D 25(OH) Status Range Deficiency <20 ng/mL (50nmol/L) Insuffciency 20 - 30 ng/mL (50 - 75 nmol/L) Sufficiency 30 - 100 ng/mL (75 - 250 nmol/L) Toxicity >100 ng/mL (>250 nmol/L) Performed By: #### L506.1000 #### [facility] [address] [place], [address] HEPATITIS C ANTIBODIES Collected: 02/23/2018 Status: F Source: [place] 11:37 AM [facility] REPOSITORY TYPE CODE TESTS RESULT OUT OF RANGE REFERENCE UNITS LAB L3100.0650 Normal HEP C AB Result Comment: TEST RESULT LIMITS HCV Antibody Hep C Virus Ab <0.1 s/co ratio 0.0 - 0.9 Negative: < 0.8 Indeterminate: 0.8 - 0.9 Positive: > 0.9 The CDC recommends that a positive HCV antibody result be followed up with a HCV Nucleic Acid Amplification test (732507). TESTING PERFORMED AT [facility]. ORIGINAL REPORT ON FILE IN LAB CONTAINS ADDITIONAL TEST SITE INFORMATION. Performed By: #### L3100.0625 #### [facility] (refer to report for specific site) refer to report for address and phone number CARDIOLOGY VISIT Observed: 01/08/2018 Status: F Source: [place] REPORT 1:35 PM [facility] REPOSITORY [facility] [facility] [address] [place] [address] OFFICE VISIT Date of Service: 01/08/18 MR#: [id number] Acct: [id number] Name: SHAWN TIMMONS Rep #: [id number] : 1950 Provider: Phillip Soler MD Age/Sex: 67/F Location: [facility] Status: Signed HPI HPI Details: SHAWN TIMMONS, [...] Date (if applicable) CC: Abelino Ring MD BROADCAST TECHNICIAN OFFICE VISIT Observed: 10/31/2017 Status: F Source: [place] REPORT 11:12 AM [facility] [address] [place] [address] OFFICE VISIT Date of Service: 08/24/17 MR#: [id number] Acct: [id number] Name: SHAWN TIMMONS Rep #: [id number] : 1950 Provider: Nataly Wells MD Age/Sex: 66/F Location: [facility] Status: Signed Intake Vital Signs08/24/17 Height 5 ft 2 in 08/24/17 Weight: 224 lb 8 oz 08/24/17 Body Mass Index (BMI) 41.1 08/24/17 Blood Pressure 144/67 Intake Visit Reasons: IUD INSERTION Chief Complaint: IUD Insertion Bottle Blower Required: No Is patient in pain?: Yes [...] abortions Past Pregnancies Del. DatName GA/WeeksOutcome Route [facility] LocaProviderFOB e ht en ia tn Unknown [...] Mirena Time out time: 13:44 Lot number: [id number] date: 08/24/22 Details: Sign in Communication: Completed [...] SEVERITY SOURCE 09/12/2018 Drug amoxicillin/F0 Rash Unknown [facility]4160 [id number][facility] [address](SNOMED M) Repository CT) 09/12/2018 Drug bee venom Swelling Unknown [facility] Allergy/4160 protein ([facility] 35490(SNOMED bee)/[id number] Repository CT) 5(RXNORM) ENCOUNTERS ENCOUNTERS ADMIT/DISCHARGE ACCOUNT ADMITTING ENCOUNTER LOCATION SOURCE NUMBER CLASS 09/12/2018/ [id number] Ambulatory BMSBuilding:B [place] 8 1 [facility] Repository 09/05/2018 [id number] Ambulatory [place] 1 [facility] ing:[facility] Repository 09/05/2018/ [id number] Ambulatory BMSBuilding:B [place] 8 9 [facility] Repository 08/31/2018 [id number] Ambulatory [place] 3 [facility] ing:OPUS Repository 08/30/2018 [id number] Ambulatory [place] 4 [facility] ing:OPBI Repository 08/28/2018 [id number] Ambulatory [place] 2 [facility] ing:OPBD Repository 06/26/2018/ [id number] Ambulatory BMSBuilding:B [place] [address] [facility] Repository 05/28/2018 [id number] Ambulatory [place] 4 [facility] ing:POLAB3 Repository 02/28/2018 [id number] Ambulatory [place] 5 [facility] ing:[facility] Repository 02/28/2018/ [id number] Ambulatory BMSBuilding:B [place] [address] [facility] Repository 02/23/2018 [id number] Ambulatory [place] 4 [facility] ing:LAB Repository 01/08/2018/ [id number] Ambulatory BMSBuilding:B [place] 8 7 [facility] Repository 12/20/2017 [id number] Ambulatory [place] 4 [facility] ing:POLAB3 Repository 11/27/2017 [id number] Ambulatory BMSBuilding:B [place] 4 [facility] Repository 08/24/2017/ [id number] Ambulatory BMSBuilding:B [place] 7 [address] [facility] Repository PAYERS PAYERS ENCOUNTER GUARANTOR PAYER SUBSCRIBER SOURCE 09/12/2018 SHAWN F Primary SHAWN F [place] [id number] APPLE Insurance:MEDICARE REHMDOB: [facility] [id number] Number[place] Repository [address]Bdk: (060) [id number] [phone] (HP) Date:2018-09-12 09/12/2018 Secondary SHAWN F [place] Insurance:MEDICAL REHMDOB: [facility] [id number] Hospital Number: Repository [id number] Date:1940-14-37GI [address] [address]XA: 09/12/2018 Tertiary NOT GIVENUNK [place] Insurance:SELF PAY [facility] Number: Effective Repository Date:2018-09-12 09/05/[id number] Primary SHAWN F [place] [address] Insurance:MEDICARE REHMDOB: [place] PART A [facility] [id number] Hospital [address]Ynf: (330) Number: Repository [phone] (HP) [id number] Date:2018-09-05 09/05/2018 Secondary SHAWN F [place] Insurance:MEDICAL REHMDOB: [facility] [id number] Hospital Number: Repository [id number] Date:1071-45-06Q[address] [address]CD: 09/05/2018 Tertiary NOT GIVENUNK [place] Insurance:SELF PAY [facility] Hospital Number: Effective Repository Date:2018-09-05 09/05/2018 HE Dick [id number] Primary SHAWN F [place] [address] Insurance:MEDICARE REHMDOB: [place] PART [place] olicy [id number] Hospital [address]Rti: (330) Number: Repository [phone] (HP) [id number] Date:2018-09-04 09/05/2018 Secondary SHAWN F [place] Insurance:MEDICAL REHMDOB: [facility] [id number] Hospital Number: Repository [id number] Date:7394-55-96WF [address] [address]ZV: 09/05/2018 Tertiary NOT GIVENUNK [place] Insurance:SELF PAY [facility] Hospital Number: Effective Repository Date:2018-09-05 08/31/2018 HE Dick [id number] Primary SHAWN F [place] [address] EE[address] Insurance:MEDICARE REHMDOB: [place] A [facility] [id number] Hospital [address]Lep: (330) Number: Repository [phone] (HP) [id number] Date:2018-08-31 08/31/2018 Secondary SHAWN F [place] Insurance:MEDICAL REHMDOB: [facility] [id number] Hospital Number: Repository [id number] Date:4528-31-92ZP [address] [address]MP: 08/31/2018 Tertiary NOT GIVENUNK [place] Insurance:SELF [facility]Y [facility] Hospital Number: Effective Repository Date:2018-08-31 08/30/2018 HE Dick [id number] Primary SHAWN F [place] [address]PLE EEK Insurance:MEDICARE REHMDOB: [place] A [facility] [id number] Hospital [address]Ntp: (330) Number: Repository [phone] (HP) [id number] Date:2018-08-21 08/30/2018 Secondary SHAWN F [place] Insurance:MEDICAL REHMDOB: [facility] [id number] Hospital Number: Repository [id number] Date:9353-98-43WK [address] [address]PA: 08/30/2018 Tertiary NOT GIVENUNK [place] Insurance:SELF PAY [facility] Hospital Number: Effective Repository Date:2018-08-21 08/28/2018 HE Dick [id number] Primary SHAWN F [place] [address] Insurance:MEDICARE REHMDOB: [place] A [facility] [id number] Hospital [address]Enx: (330) Number: Repository [phone] (HP) [id number] Date:2018-06-18 08/28/2018 Secondary SHAWN F [place] Insurance:MEDICAL REHMDOB: [facility] [id number] Hospital Number: Repository [id number] Date:1298-97-99DC [address] [address]ZM: 08/28/2018 Tertiary NOT GIVENUNK [place] Insurance:SELF PAY [facility] Number: Effective Repository Date:2018-06-18 06/26/2018 He Dick [id number] Primary SHAWN F [place] [address] Insurance:MEDICARE REHMDOB: [place] PART A [facility] [id number] Hospital [address]Ecv: (330) Number: Repository [phone] () [id number] Date:2018-06-18 06/26/2018 Secondary SHAWN F [place] Insurance:MEDICAL REHMDOB: [facility] [id number] Hospital Number: Repository [id number] Date:9555-82-02YH [address] [address]QC: 06/26/2018 Tertiary NOT GIVENUNK [place] Insurance:SELF [facility]Y [facility] Hospital Number: Effective Repository Date:2018-06-26 05/28/2018 He Dick [id number] Primary SHAWN F [place] APPLE EEK Insurance:MEDICARE REHMDOB: [place] [facility] [id number] [facility] 784[address]Zwc: ([phone]) Number: Repository [phone] () [id number] Date:2018-05-28 05/28/2018 Secondary SHAWN [place] Insurance:MEDICAL REHMDOB: [facility] [id number] Hospital Number: Repository [id number] Date:1274-69-34NU [address] [address]QX: 05/28/2018 Tertiary NOT GIVENUNK Melia Insurance[facility] Number: Effective Repository Date:2018-05-28 02/28/2018 He Dick [id number] Primary SHAWN F Melia [place] Insurance:MEDICARE REHMDOB: [place] [facility] [id number] Hospital 61690Blk: (330) Number: Repository [phone] () [id number] Date:2018-02-28 02/28/2018 Secondary SHAWN F [place] Insurance:MEDICAL REHMDOB: [facility] [id number] Hospital Number: Repository [id number] Date:[id number] [address]RX: 02/28/2018 Tertiary NOT GIVENUNK [place] Insurance:SELF PAY [facility]: Effective Repository Date:2018-02-28 02/28/2018 He [id number] Primary SHAWN F Melia Williamson Insurance:MEDICARE REHMDOB: [place] PART A [facility] [id number] Hospital [address]Cnf: (330) Number: Repository [phone] () [id number] Date:2018-01-25 02/28/2018 Secondary SHAWN F [place] Insurance:MEDICAL REHMDOB: [facility] [id number] Hospital Number: Repository [id number] Date:6841-78-83OF [address] [address]JQ: 02/28/2018 Tertiary NOT GIVENUNK Mel[place] Insurance:SELF PAY [facility] Number: Effective Repository Date:2018-02-28 02/23/2018 He Dick [id number] Primary SHAWN F Mel[place] Insurance:MEDICARE REHMDOB: [place] [facility] [id number] Hospital [address]Vhf: (330) Number: Repository [phone] () [id number] Date:2017-12-20 02/23/2018 Secondary [place] Insurance:MEDICAL REHMDOB: [facility] [id number] Hospital Number: Repository [id number] Date:[id number] [address]XS: 02/23/2018 Tertiary NOT GIVENUNK [place] Insurance[facility] Number: Effective Repository Date:2017-12-20 01/08/2018 He [id number] Primary SHAWN F Melia [place] Insurance:MEDICARE REHMDOB: [place] [facility] [id number] Hospital [address]Vhf: (330) Number: Repository [phone] () [id number] Date:2017-09-04 01/08/2018 Secondary SHAWN F [place] Insurance:MEDICAL REHMDOB: [facility] [id number] Hospital Number: Repository [id number] [place]209[place] [id number]: 01/08/2018 Tertiary NOT GIVENUNK Mel[place] Insurance[facility] Number: Effective Repository Date:2018-01-08 12/20/2017 He Dick [id number] Primary [place]N [place] Insurance:MEDICAL REHMDOB: [facility] [id number] Hospital [address]Lmo: (330) Number: Repository [phone] () [id number] Date:9838-06-84[place] 40[address]01[address]WP: 12/20/2017 Secondary SHAWN F Mel[place] Insurance:MEDICARE REHMDOB: [facility] PART A [facility] [id number] Hospital Number: Repository [id number] Date:2017-12-20 12/20/2017 Tertiary NOT GIVENUNK [place] Insurance[facility] Number: Effective Repository Date:2017-12-20 11/27/2017 He Dick [id number] Primary SHAWN F Mel[place] Insurance:MEDICAL REHMDOB: [facility] [id number] Hospital [address]Ndl: (330) Number: Repository [phone] () [id number] Date:4216-88-21MK[address] [address]GK: 11/27/2017 Secondary SHAWN F [place] Insurance:MEDICARE REHMDOB: Community PART A [facility] [id number] Hospital Number: Repository [id number] Date:2017-11-27 11/27/2017 Tertiary NOT GIVENUNK [place] Insurance:SELF PAY [facility] Number: Effective Repository Date:2017-11-27 08/24/2017 He Dick [id number] Primary [place]AWN [place] Insurance:MEDICARE REHMDOB: [place] PART A [facility] [id number] Hospital [address]18[address]Qrv: 330) Number: Repository [phone] ( [id number] Date:2017-08-19 08/24/2017 Secondary SHAWN Kerry Cárdenas Insurance:MEDICAL REHMDOB: [facility] [id number] Hospital Number: Repository [id number] Date:8070-55-77[address], [place] [address]AX: 08/24/2017 Tertiary NOT GIVENUNK Melia Insurance:SELF PAY [facility] Number: Effective Repository Date:2017-08-19
== END ==
PROVIDERS: Family Provider Family Medicine Geriatric Medicine; PCP Family Medicine Geriatric Medicine; Visit Provider Family Medicine Geriatric Medicine
DX: Z12.31 Encounter for screening mammogram for malignant neoplasm of breast (principal)
CPT/HCPCS: 77063; 77067

== ENCOUNTER → 2018-08-31 10:54 | Outpatient (CLI) | payer MEDICARE, OTHER, SELFPAY ==
--- NOTE | 2018-08-31 10:57 | US_ITS ---
STUDY: ULTRASOUND BREAST - RIGHT REASON FOR EXAM: Female, 67 years old. Abnormal screening mammogram. TECHNIQUE: Axial and longitudinal images of the RIGHT breast were performed with a high resolution ultrasound transducer. COMPARISON: Comparison is made with prior mammogram dated August 30, 2018. FINDINGS: RIGHT Breast: The inferior medial portion of the right breast was examined by ultrasound. The mammographic abnormality corresponds to a 1.3 cm x 1.3 cm x 0.5 cm lobulated hypoechoic nodular density. Increased flow is seen. A biopsy is recommended for further evaluation. US/Breast Limited Unilateral IMPRESSION: The mammographic abnormality corresponds to 1.3 cm x 1.3 cm x 0.5 cm hypoechoic lobulated nodule at the 4:00 position breast at 2 cm from the nipple. A biopsy is recommended for further evaluation. ASSESSMENT CATEGORY: BIRADS Category 4: Suspicious - Biopsy Should Be Considered. A letter regarding these results will be sent to the patient by the facility within 30 days. Electronically Signed: Jake Espinosa MD at 13:40 EST Tel [phone], Service support ,
--- OUTSIDE RECORDS SUMMARY | 2018-10-17 03:33 | XMS RPT_ITS ---
:1950 Author Organization [place] Support Name Relationship Address Phone EDVIN MONROE Unavailable [address] + [place] [address] R Unavailable Unavailable Unavailable IAIN HE Unavailable [address] + [place] [address] EDVIN MONROE Unavailable [address] + [place] [address] R Unavailable Unavailable Unavailable IAIN, HE Unavailable [address] + [place] [address] EDVIN MONROE Unavailable [address] + [place] [address] R Unavailable Unavailable Unavailable IAIN, HE Unavailable [address] + [place] [address] EDVIN MONROE Unavailable [address] + [place] [address] R Unavailable Unavailable Unavailable IAIN, HE Unavailable [address] + [place] [address] EDVIN MONROE Unavailable [address] + [place] [address] R Unavailable Unavailable Unavailable IAIN, HE Unavailable [address] + [place] [address] EDVIN MONROE Unavailable [address] + [place] [address] R Unavailable Unavailable Unavailable IAIN, HE Unavailable [address] + [place] [address] EDVIN MONROE Unavailable [address] + [place] [address] R Unavailable Unavailable Unavailable IAIN, HE Unavailable [address] + [place] [address] EDVIN MONROE Unavailable [address] + [place] [address] R Unavailable Unavailable Unavailable IAINABISAI NelsonER Unavailable [address] + [place] [address] EDVIN MONROE Unavailable [address] + [place] [address] R Unavailable Unavailable Unavailable IAINHE Nelson Unavailable [address] + [place] [address] EDVIN MONROE Unavailable [address] + [place] [address] R Unavailable Unavailable Unavailable IAIN, HE Unavailable [address] + [place] [address] EDVIN MONROE Unavailable [address] + [place] [address] R Unavailable Unavailable Unavailable IAINABISAI NelsonER Unavailable [address] + [place] [address] EDVIN MONROE Unavailable [address] + [place] [address] R Unavailable Unavailable Unavailable IAIN, HE Unavailable [address] + [place] [address] CAR[address]VIN Un[address] + [place] [address] R Unavailable Unavailable Unavailable IAINHE Nelson Unavailable [address] + [place] [address] EDVIN MONROE Unavailable [address] + [place] [address] R Unavailable Unavailable Unavailable IAINABISAI NelsonER Unavailable [address] + [place] [address] EDVIN MONROE Unavailable [address] + [place] [address] R Unavailable Unavailable Unavailable IAIN, HE Unavailable [address] + [place] [address] Care Team Providers Name Role Phone Jhonathan, [...] N95.9 - Unspecified Jhonathan, Abelino Chi Active [place] menopausal and [facility] perimenopausal Hospital disorder / Repository N95.9(ICD-10) 06/26/2018 Unknown Z30.432 - Encounter Marcanthony, Active [place] for removal of [facility] Hospital contraceptive device Repository / Z30.432(ICD-10) 06/26/2018 Unknown N85.01 - Benign Marcanthony, Active Melia endometrial [facility] hyperplasia / Hospital N85.01(ICD-10) Repository 03/14/2018 Unknown I10 - Essential Jhonathan, Abelino Chi Active Melia (primary) [facility] hypertension / Hospital I10(ICD-10) Repository 01/08/2018 Unknown R00.2 - Palpitations Phillip Soler Active Melia / R00.2(ICD-10) [facility] Hospital Repository PROCEDURES PROCEDURES No Procedure Records FoundRESULTS RESULTS SURGERY VISIT REPORT Observed: 09/12/2018 Status: F Source: [place]EL GREEN 1:57 PM [facility] REPOSITORY [facility] [address] [place] [address] OFFICE VISIT Date of Service: 09/12/18 MR#: [id number] Acct: [id number] Name: SHAWN TIMMONS Rep #: [id number] : 1950 Provider: Portia Lim PA-C Age/Sex: 67/F Location: [facility] Status: Signed Intake Intake Visit Reasons: lump near biopsy site Chief Complaint: abn mammo/ US right Manager Heart Required: No Is patient in pain?: No [...] Diagnoses Abnormal mammogram R92.8 Hematoma T14.8XXA 09/12/18 3097 <Electronically signed by Portia Lim PA-C> Date Portia Lim PA-C Cosigner Signature: Date (if applicable) CC: Abelino Ring MD SURGERY VISIT REPORT Observed: 09/10/2018 Status: F Source: HA[place]EL GRE[place] 4:09 PM [facility] REPOSITORY [facility] [address] [place] [address] OFFICE VISIT Date of Service: 09/05/18 MR#: [id number] Acct: [id number] Name: SHAWN TIMMONS Rep #: [id number] : 1950 Provider: Dawit Sorensen MD Age/Sex: 67/F Location: [facility] Status: Signed Intake Vital Signs09/05/18 Height 5 ft 1.5 in 09/05/18 Weight: 199 lb 7 oz 09/05/18 Body Mass Index (BMI) 37.0 09/05/18 Blood Pressure 182/75 H Intake Visit Reasons: Abn Mammo Rt Breast [facility] Mammo 08/30 US 08/31 Chief Complaint: abn mammo/ US right Manager Heart Required: No Is patient in pain?: No [...] blood clots Neuro Neurologic: No weakness Exam [facility] Head: normal to inspection, normocephalic, atraumatic Mouth: [...] well. Alert Skyler Yes Biopsy Breast Biopsy: 10656 US Guidance Procedure Time Out Time Out [...] Orders: Coding Level of Care Code Attention Law Office Receptionist Diagnoses Abnormal mammogram of right breast R92.8 Additional Codes Biopsy - Breast Biopsy: 43094 US Guidance (89106) Comment I would like her to be billed for both the office component and the biopsy component 09/10/18 1609 <Electronically signed by Dawit Sorensen MD> Date Dawit Sorensen MD Cosigner Signature: Date (if applicable) CC: Abelino Ring MD BREAST BIOPSY Observed: 09/04/2018 Status: F Source: MELIA (CHOOSE SITE) 2:30 PM [facility] REPOSITORY Patient: SHAWN TIMMONS : 1950 (67/F) Acct Num: [id number] Phys: Dawit Sorensen MD Unit Num: [id number] Loc: [facility] Specimen: [id number] Received: 09/05/18 - 1546 Spec Type: BREAST [...] in one cassette. / AM:quirino TC:5 CPT: 81405 HEADER OPERATION: Ultrasound-guided mammotome biopsy right breast [...] on file> Performed By: #### PBRBX #### [facility] [address] [place], [place], [address] BREAST LIMITED Observed: 08/31/2018 Status: F Source: MELIA UNILATERAL 10:57 AM [facility] REPOSITORY [facility] Imaging Services [address] [place] [address] Breast Limited Unilateral MR#: [id number] Acct: [id number] Name: SHAWN TIMMONS Rep #: [id number] : 1950 F 67 From: Jake Espinosa MD PCP: Abelino Ring MD, Chi Status: REG CLI Study: Breast Limited Unilateral Date of Exam: 08/31/18 Exam# [id number] Ordering Dr: Abelino Ring MD STUDY: ULTRASOUND [...] Jake Espinosa MD at 13:40 EST Tel [phone], Service support , CC: Abelino Ring MD Jewelry Sales Coordinator: Signed SCREENING MAMM (CAD), Observed: 08/30/2018 Status: F Source: MELIA BILAT 9:24 AM [facility] REPOSITORY [facility] Imaging Services [address] [place] [address] SCREENING MAMM (CAD), BILAT MR#: [id number] Acct: [id number] Name: SHAWN TIMMONS Rep #: [id number] : 1950 F 67 From: Jake Espinosa MD PCP: Abelino Ring MD, Chi Status: REG CLI Study: SCREENING MAMM (CAD), BILAT Date of Exam: 08/30/18 Exam# [id number] Ordering Dr: Abelino Ring MD MAMMOGRAPHY - [...] delay biopsy of a clinically suspicious abnormality. [id number] Electronically Signed: Jkae Espinosa MD at 10:22 EST Tel [phone], Service support , CC: Abelino Ring MD Jewelry Sales Coordinator: Signed DEXA BONE DENSITY Observed: 08/28/2018 Status: F Source: MELIA STUDY 2:30 PM [facility] REPOSITORY [facility] Imaging Services [address] [place] [address] Dexa Bone Density Study MR#: [id number] Acct: [id number] Name: SHAWN TIMMONS Rep #: [id number] : 1950 F 67 From: Jake Espinosa MD PCP: Abelino Ring MD, Chi Status: REG CLI Study: Dexa Bone Density Study Date of Exam: 08/28/18 Exam# [id number] Ordering Dr: Abelino Ring MD STUDY: DUAL [...] Jake Espinosa MD at 12:45 EST Tel [phone], Service support , CC: Abelino Ring MD Jewelry Sales Coordinator: Signed MAILROOM COORDINATOR OFFICE VISIT Observed: 06/26/2018 Status: F Source: MELIA REPORT 10:43 AM [facility] [address] [place] [address] OFFICE VISIT Date of Service: 06/26/18 MR#: [id number] Acct: [id number] Name: SHAWN TIMMONS Rep #: [id number] : 1950 Provider: Nataly Wells MD Age/Sex: 67/F [place] [facility] [place]: Signed Intake Vital Signs06/26/18 Height 5 ft 2 in 06/26/18 Weight: 196 lb 2 oz 06/26/18 Body Mass Index (BMI) 35.9 06/26/18 Blood Pressure 150/98 H Intake Visit Reasons: IUD REMOVAL Chief Complaint: IUD Removal Manager Heart Required: No Is patient in pain?: No [...] abortions Past Pregnancies Del. DatName GA/WeeksOutcome Route [facility] LgAnesthesD LocaProviderFOB e ht en ia [...] 05/28/2018 Status: F Source: MELIA 2:55 PM [facility] REPOSITORY TYPE CODE TESTS RESULT OUT OF [...] Lymph 2.67 Performed By: #### L100.0100 #### [facility] [address] [place], [address] VITAMIN D,25 HYDROXY Collected: 05/28/2018 Status: F Source: MELIA 2:55 PM [facility] REPOSITORY TYPE CODE TESTS RESULT OUT OF RANGE REFERENCE UNITS LAB L506.1000 29.95-100.01 ng/mL Normal Vitamin D 37.6 25-OH Result Comment: Vitamin D 25(OH) Status Range Deficiency <20 ng/mL (50nmol/L) Insuffciency 20 - 30 ng/mL (50 - 75 nmol/L) Sufficiency 30 - 100 ng/mL (75 - 250 nmol/L) Toxicity >100 ng/mL (>250 nmol/L) Performed By: #### L506.1000 #### [facility] [address] [place], [address] COMPREHENSIVE METABOLIC Collected: 05/28/2018 Status: F Source: MELIA [facility] 2:55 PM [facility] REPOSITORY TYPE CODE TESTS RESULT OUT OF [...] 9 Performed By: #### L500.4050, L501.9520 #### [facility] [address] [place], [place], [address] THYROID STIM HORMONE Collected: 05/28/2018 Status: F Source: [place]ZEL GREEN (TSH) 2:55 PM [facility] REPOSITORY TYPE CODE TESTS RESULT OUT OF RANGE REFERENCE UNITS LAB L501.9520 0.358-3.74 uIU/mL Normal TSH 1.75 Performed By: #### L500.4050, L501.9520 #### [facility] [address] [place], [place], [address] HEPATITIS C ANTIBODIES Collected: 05/28/2018 Status: F Source: [place] 2:55 PM [facility] REPOSITORY TYPE CODE TESTS RESULT OUT OF RANGE REFERENCE UNITS LAB L3100.0650 0.0-0.9 s/co ratio Normal HEP C AB <0.1 Result Comment: Negative: < 0.8 Indeterminate: 0.8 - 0.9 Positive: > 0.9 The CDC recommends that a positive HCV antibody result be followed up with a HCV Nucleic Acid Amplification test (286087). Performed at: - [facility] [address] [id number] Advisory Application Developer: Ramon Dooley PhD, Phone: [phone] Performed By: #### L3100.0625 #### [facility] (refer to report for specific site) refer to report for address and phone number DOWNTIME REPORT Observed: 03/08/2018 Status: F Source: [place] 11:51 AM [facility] Medical Records Department [address] [place] [address] Downtime Report MR#: [id number] Acct: [id number] Name: SHAWN TIMMONS Rep #: [id number] : 1950 67 From: Ethan Tao PCP: Jhonathan LUGO,Abelino Mosher Status: REG CLI This patient was seen during an EMR downtime February 19, 2018 - February 26, 2018. This patient may have a combination of paper and electronic documentation or all paper documentation. All documentation is viewable within the e-chart portion of [facility] for each patient visit. MAILROOM COORDINATOR OFFICE VISIT Observed: 03/04/2018 Status: F Source: [place] REPORT 2:11 PM [facility] [address] [place] [address] OFFICE VISIT Date of Service: 02/28/18 MR#: [id number] Acct: [id number] Name: SHAWN TIMMONS Rep #: [id number] : 1950 Provider: Nataly Wells MD Age/Sex: 67/F [place] [facility] [place]: Signed Intake Vital Signs02/28/18 Height 5 ft 2 in 02/28/18 Weight: 205 lb 2 oz 02/28/18 Body Mass Index (BMI) 37.5 02/28/18 Blood Pressure 126/66 Intake Visit Reasons: 6 MONTH FOLLOW UP - IUD Manager Heart Required: No Is patient in pain?: No [...] abortions Past Pregnancies Del. DatName GA/WeeksOutcome Route [facility] LocaProviderFOB e ht en tn Unknown [...] versus using the mirena x 1 year. [facility] results Orders Orders: Coding Level of Care Code Off vis,est,level 3 Diagnoses Endometrial hyperplasia without atypia, simple N85.01 Additional Codes Endometrial Biopsy (49018) 03/04/18 1411 <Electronically signed by Nataly Wells MD> Date Nataly Wells MD Cosigner Signature: Date (if applicable) CC: ENDOMETRIAL BX/CURETTINGS Observed: 02/28/2018 Status: F Source: MELIA 12:00 AM [facility] REPOSITORY Patient: SHAWN TIMMONS : 1950 (67/F) Acct Num: [id number] Phys: Russell LUGO,Nataly Unit Num: [id number] Loc: [facility] Specimen: [id number] Received: 02/28/181641 Spec Type: ENDOM BX/C TISSUES [...] one cassette. / SJ:quirino 03/01/18 TC:5 CPT: 23628 HEADER OPERATION: Endometrial biopsy PRE-OP DIAGNOSIS: Abnormal uterine bleeding TISSUE SUBMITTED: Endometrial lining MICROSCOPIC DESCRIPTION Slides are reviewed. MICROSCOPIC DIAGNOSIS Endometrium, biopsy: Fragments of benign polypoid endometrium with cystic change. Focal pseudodecidual change. AM:quirino 03/02/18 Signed Yousif Crys 03/02/18 <signature on file> Performed By: #### PEMB #### [facility] [address] [place], [address] COMPREHENSIVE METABOLIC Collected: 02/23/2018 Status: F Source: MELIA KATYA 11:37 AM [facility] REPOSITORY Order Comment: 50 TYPE CODE TESTS [...] 10 Performed By: #### L500.4050, L501.9520 #### [facility] [address] [place], [place], [address] THYROID STIM HORMONE Collected: 02/23/2018 Status: F Source: MELIA (TSH) 11:37 AM [facility] REPOSITORY Order Comment: 50 TYPE CODE TESTS RESULT OUT OF RANGE REFERENCE UNITS LAB L501.9520 0.358-3.74 uIU/mL Normal TSH 1.91 Performed By: #### L500.4050, L501.9520 #### [facility] [address] [place], [place], [address] CBC W/DIFF, AUTOMATED Collected: 02/23/2018 Status: F Source: MELIA 11:37 AM [facility] REPOSITORY TYPE CODE TESTS RESULT OUT OF [...] Lymph 2.76 Performed By: #### L100.0100 #### [facility] [address], [address] VITAMIN D,25 HYDROXY Collected: 02/23/2018 Status: F Source: MELIA 11:37 AM [facility] REPOSITORY TYPE CODE TESTS RESULT OUT OF RANGE REFERENCE UNITS LAB L506.1000 29.95-100.01 ng/mL Normal Vitamin D 53.4 25-OH Result Comment: Vitamin D 25(OH) Status Range Deficiency <20 ng/mL (50nmol/L) Insuffciency 20 - 30 ng/mL (50 - 75 nmol/L) Sufficiency 30 - 100 ng/mL (75 - 250 nmol/L) Toxicity >100 ng/mL (>250 nmol/L) Performed By: #### L506.1000 #### [facility] [address] [place], [address] HEPATITIS C ANTIBODIES Collected: 02/23/2018 Status: F Source: MELIA 11:37 AM [facility] REPOSITORY TYPE CODE TESTS RESULT OUT OF RANGE REFERENCE UNITS LAB L3100.0650 Normal HEP C AB Result Comment: TEST RESULT LIMITS HCV Antibody Hep C Virus Ab <0.1 s/co ratio 0.0 - 0.9 Negative: < 0.8 Indeterminate: 0.8 - 0.9 Positive: > 0.9 The CDC recommends that a positive HCV antibody result be followed up with a HCV Nucleic Acid Amplification test (538500). TESTING PERFORMED AT [facility]. ORIGINAL REPORT ON FILE IN LAB CONTAINS ADDITIONAL TEST SITE INFORMATION. Performed By: #### L3100.0625 #### [facility] (refer to report for specific site) refer to report for address and phone number CARDIOLOGY VISIT Observed: 01/08/2018 Status: F Source: MELIA REPORT 1:35 PM [facility] REPOSITORY [facility] [address] [place] [address] OFFICE VISIT Date of Service: 01/08/18 MR#: [id number] Acct: [id number] Name: SHAWN TIMMONS Rep #: [id number] : 1950 Provider: Phillip Soler MD Age/Sex: 67/F Location: [facility] Status: Signed HPI HPI Details: SHAWN TIMMONS, [...] Date (if applicable) CC: Abelino Ring MD MAILROOM COORDINATOR OFFICE VISIT Observed: 10/31/2017 Status: F Source: MELIA REPORT 11:12 AM [facility] [address] [place] [address] OFFICE VISIT Date of Service: 08/24/17 MR#: [id number] Acct: [id number] Name: SHAWN TIMMONS Rep #: [id number] : 1950 Provider: Nataly Wells MD Age/Sex: 66/F [place] [facility] [place]: Signed Intake Vital Signs08/24/17 Height 5 ft 2 in 08/24/17 Weight: 224 lb 8 oz 08/24/17 Body Mass Index (BMI) 41.1 08/24/17 Blood Pressure 144/67 Intake Visit Reasons: IUD INSERTION Chief Complaint: IUD Insertion Manager Heart Required: No Is patient in pain?: Yes [...] abortions Past Pregnancies Del. DatName [place]/WeeksOutcome [facility] LocaProviderFOB e ht [...] Mirena Time out time: 13:44 Lot number: [id number] date: 08/24/22 Details: Sign in Communication: Completed [...] SEVERITY SOURCE 09/12/2018 Drug amoxicillin/F0 Rash Unknown [facility] Allergy/4160 [id number]([facility] [address](SNOMED M) Repository CT) 09/12/2018 Drug bee venom Swelling Unknown [facility] Allergy/4160 protein ([facility] [address](SNOMED bee)/[id number] Repository CT) 5(RXNORM) ENCOUNTERS ENCOUNTERS ADMIT/DISCHARGE ACCOUNT ADMITTING ENCOUNTER LOCATION SOURCE NUMBER CLASS 09/12/2018/ [id number] Ambulatory BMSBuilding:B Mel[place] 8 1 [facility] Repository 09/05/2018 [id number] Ambulatory [place] 1 [facility] ing:[facility] Repository 09/05/2018/ [id number] Ambulatory BMSBuilding:B [place] 8 9 [facility] Repository 08/31/2018 [id number] Ambulatory [place] 3 [facility] Hospital ing:OPUS Repository 08/30/2018 [id number] Ambulatory [place] Mel[place] 4 [facility] Hospital ing:OPBI Repository 08/28/2018 [id number] Ambulatory [place] 2 [facility] Hospital ing:OPBD Repository 06/26/2018/ [id number] Ambulatory BMSBuilding:B [place] 8 1 [facility] Repository 05/28/2018 [id number] Ambulatory [place] 4 [facility] Hospital ing:POLAB3 Repository 02/28/2018 [id number] Ambulatory [place] 5 [facility] Hospital ing:[facility] Repository 02/28/2018/ [id number] Ambulatory BMSBuilding:B [place] 8 4 [facility] Repository 02/23/2018 [id number] Ambulatory [place] 4 [facility] Hospital ing:LAB Repository 01/08/2018/ [id number] Ambulatory BMSBuilding:B [place] 8 7 [facility] Repository 12/20/2017 [id number] Ambulatory [place] Mel[place] 4 [facility] Hospital ing:POLAB3 Repository 11/27/2017 [id number] Ambulatory BMSBuilding:B [place] 4 [facility] Repository 08/24/2017/ [id number] Ambulatory BMSBuilding:B [place] 7 7 [facility] Repository PAYERS PAYERS ENCOUNTER GUARANTOR PAYER SUBSCRIBER SOURCE 09/12/2018 SHAWN F Primary SHAWN F Melia [id number] APPLE Insurance:MEDICARE REHMDOB: [facility] [id number] Number: Repository [id number]: (590) [id number] [phone] (HP) Date:2018-09-12 09/12/2018 Secondary SHAWN F Melia Insurance:MEDICAL REHMDOB: [facility] [id number] Hospital Number: Repository [id number] Date:5194-65-34LT [address] [address]XK: 09/12/2018 Tertiary NOT GIVENUNK [place] Insurance:SELF PAY [facility] Number: Effective Repository Date:2018-09-12 09/05/2018 HE Dick [id number] Primary SHAWN F [place] [address] Insurance:MEDICARE REHMDOB: [place] PART A [facility] [id number] Hospital [address]Mpb: (330) Number: Repository [phone] (HP) [id number] Date:2018-09-05 09/05/2018 Secondary SHAWN F Mel[place] Insurance:MEDICAL REHMDOB: [facility] [id number] Hospital Number: Repository [id number] Date:0700-15-54[address] [address]WM: 09/05/2018 Tertiary NOT GIVENUNK [place] Insurance:SELF PAY [facility] Hospital Number: Effective Repository Date:2018-09-05 09/05/2018 HE Dick [id number] Primary SHAWN F Melia [address] Insurance:MEDICARE REHMDOB: [place] olicy [id number] Hospital [address]Bvf: (330) Number: Repository [phone] (HP) [id number] Date:2018-09-04 09/05/2018 Secondary SHAWN F Mel[place] Insurance:MEDICAL REHMDOB: [facility] [id number] Hospital Number: Repository [id number] Date:6153-26-21VH [address] [address]QY: 09/05/2018 Tertiary NOT GIVENUNK [place] Insurance:SELF PAY [facility] Hospital Number: Effective Repository Date:2018-09-05 08/31/2018 HE Dick [id number] Primary SHAWN F Mel[place] [address] Insurance:MEDICARE REHMDOB: [place] [facility] [id number] Hospital [address]Deu: (330) Number: Repository [phone] (HP) [id number] Date:2018-08-31 08/31/2018 Secondary SHAWN F [place] Insurance:MEDICAL REHMDOB: [facility] [id number] Hospital Number: Repository [id number] Date:2501-59-55WZ [address] [address]PZ: 08/31/2018 Tertiary NOT GIVENUNK [place] Insurance:SELF PAY [facility] Number: Effective Repository Date:2018-08-31 08/30/2018 HE Dick [id number] Primary SHAWN F [place] [address] Insurance:MEDICARE REHMDOB: [place] [facility] [id number] Hospital [address]Dez: (330) Number: Repository [phone] (HP) [id number] Date:2018-08-21 08/30/2018 Secondary SHAWN F [place] Insurance:MEDICAL REHMDOB: [facility] [id number] Hospital Number: Repository [id number] Date:1700-55-95SC [address] [address]JL: 08/30/2018 Tertiary NOT GIVENUNK [place] Insurance:SELF PAY [facility] Number: Effective Repository Date:2018-08-21 08/28/2018 HE Dick [id number] Primary SHAWN F Mel[place] [address] Insurance:MEDICARE REHMDOB: [place] [facility] [id number] Hospital [address]Yii: (330) Number: Repository [phone] (HP) [id number] Date:2018-06-18 08/28/2018 Secondary SHAWN F [place] Insurance:MEDICAL REHMDOB: [facility] [id number] Hospital Number: Repository [id number] Date:4541-68-61IV [address] [address]GA: 08/28/2018 Tertiary NOT GIVENUNK [place] Insurance:SELF PAY [facility] Number: Effective Repository Date:2018-06-18 06/26/2018 He Dick [id number] Primary SHAWN F Melia [address] Insurance:MEDICARE REHMDOB: [place] [facility] [id number] Hospital [address]Xym: (330) Number: Repository [phone] () [id number] Date:2018-06-18 06/26/2018 Secondary SHAWN F [place] Insurance:MEDICAL REHMDOB: [facility] [id number] Hospital Number: Repository [id number] Date:6473-54-10RN [address] [address]TC: 06/26/2018 Tertiary NOT GIVENUNK Mel[place] Insurance:SELF PAY [facility] Number: Effective Repository Date:2018-06-26 05/28/2018 He Dick [id number] Primary SHAWN F [place] [address] Insurance:MEDICARE REHMDOB: [place] [facility] [id number] Hospital [address]Ifp: (330) Number: Repository [phone] () [id number] Date:2018-05-28 05/28/2018 Secondary SHAWN F [place] Insurance:MEDICAL REHMDOB: [facility] [place] [id number] Hospital Number: Repository [id number] Date:6778-85-87DE [address] [address]LP: 05/28/2018 Tertiary NOT GIVENUNK Melia Insurance:SELF PAY [facility] Number: Effective Repository Date:2018-05-28 02/28/2018 He Dick [id number] Primary SHAWN F Melia Henniker Insurance:MEDICARE REHMDOB: [facility] [place] [facility] [id number] Hospital 668[address]Kxq: [phone]) Number: Repository [phone] () [id number] Date:2018-02-28 02/28/2018 Secondary SHAWN F Melia Insurance:MEDICAL REHMDOB: [facility] [place] [id number] Hospital Number: Repository [id number] Date:1866-99-07PW[address] [address]PX: 02/28/2018 Tertiary NOT GIVENUNK Roxie Insurance:SELF PAY [facility] Number: Effective Repository Date:2018-02-28 02/28/2018 He [id number] Primary SHAWN F Melia Henniker Insurance:MEDICARE REHMDOB: [place] [facility] [id number] Hospital 199[address]Kaf: [phone]) Number: Repository [phone] () [id number] Date:2018-01-25 02/28/2018 Secondary SHAWN F Melia Insurance:MEDICAL REHMDOB: [facility] [place] [id number] Hospital Number: Repository [id number] Date:4419-51-05GO [address] [address]TU: 02/28/2018 Tertiary NOT GIVENUNK Melia Insurance:SELF PAY [facility] Hospital Number: Effective Repository Date:2018-02-28 02/23/2018 He Dick [id number] Primary SHAWN F Melia Henniker Insurance:MEDICARE REHMDOB: [place] [facility] [id number] Hospital 332[address]Zjq: [phone]) Number: Repository [phone] () [id number] Date:2017-12-20 02/23/2018 Secondary SHAWN F Roxie Insurance:MEDICAL REHMDOB: [facility] [place] [id number] Hospital Number: Repository [id number] Date:[id number] [address]TK: 02/23/2018 Tertiary NOT GIVENUNK Melia Insurance:SELF PAY [facility] Number: Effective Repository Date:2017-12-20 01/08/2018 He [id number] Primary SHAWN F Melia Henniker Insurance:MEDICARE REHMDOB: [place] [facility] [id number] Hospital 35444Bit: [phone]) Number: Repository [phone] () [id number] Date:2017-09-04 01/08/2018 Secondary SHAWN F Melia Insurance:MEDICAL REHMDOB: [facility] [place] [id number] Hospital Number: Repository [id number] Date:6257-53-21[place] [address]WP: 01/08/2018 Tertiary NOT GIVENUNK Melia Insurance:SELF PAY [facility] Number: Effective Repository Date:2018-01-08 12/20/2017 He Dick [id number] Primary SHAWN F Roxie Henniker Insurance:MEDICAL REHMDOB: [facility] [id number] Hospital [address]Yvw: (330) Number: Repository [phone] () [id number] Date:7793-89-57[place] [address]WP: 12/20/2017 Secondary SHAWN F Melia Insurance:MEDICARE REHMDOB: [facility] [id number] Hospital Number: Repository [id number] Date:2017-12-20 12/20/2017 Tertiary NOT GIVENUNK Roxie Insurance:SELF PAY [facility] Number: Effective Repository Date:2017-12-20 11/27/2017 He Dick [id number] Primary SHAWN F Melia Henniker Insurance:MEDICAL REHMDOB: [facility] [id number] Hospital 47129Vpp: (330) Number: Repository [phone] () [id number] Date:8294-09-05UO[address] [address]LD: 11/27/2017 Secondary SHAWN F Melia Insurance:MEDICARE REHMDOB: [facility] [id number] Hospital Number: Repository [id number] Date:2017-11-27 11/27/2017 Tertiary NOT GIVENUNK Roxie Insurance:SELF PAY [facility] Number: Effective Repository Date:2017-11-27 08/24/2017 He Dick [id number] Primary SHAWN Kerry CraigRoxie Henniker Insurance:MEDICARE REHMDOB: [place] [facility] [id number] Hospital 38[address]Nyr: 330) Number: Repository [phone] ( [id number] Date:2017-08-19 08/24/2017 Secondary SHAWN Kerry Cárdenas Insurance:MEDICAL REHMDOB: [facility] [place] [id number] Hospital Number: Repository [id number] Date:4930-76-14[address] [address]YX: 08/24/2017 Tertiary NOT GIVENUNK Melia Insurance:SELF PAY [facility] Number: Effective Repository Date:2017-08-19
== END ==
PROVIDERS: Family Provider Family Medicine Geriatric Medicine; PCP Family Medicine Geriatric Medicine; Visit Provider Family Medicine Geriatric Medicine
DX: R92.8 Other abnormal and inconclusive findings on diagnostic imaging of breast (principal); N63.10 Unspecified lump in the right breast, unspecified quadrant
CPT/HCPCS: 76642

== ENCOUNTER → 2018-09-05 16:02 | Outpatient (CLI) | payer MEDICARE, OTHER, SELFPAY ==
--- NOTE | 2018-09-04 14:30 | BRBX_PTH ---
PATIENT: SHAWN TIMMONS LOC: [facility] U#:[id number] AGE/SX: 74/F ROOM: RE09/05/[address]: Dr. Dawit Sorensen MD : 1950 BED: DIS: SPEC #: [id number] RECD: 09/05/18 15:46 STATUS: SAUL REAntwon #: [id number] MATILDA: 09/04/18 14:[address]: Dawit Sorensen DEPT: SURGICAL PATHOLOGY RECD BY: Ruslan Diaz ENTERED: 09/06/18 12:51 SP TYPE: BREAST BX OTHR DR: Dr. Abelino Ring MD Tissues: Right breast, NOS Procedures: Surgery Specimen Level IV HEADER OPERATION: Ultrasound-guided mammotome biopsy right breast PRE-OP DIAGNOSIS: Abnormal mammogram R92.8 TISSUE SUBMITTED: Right breast biopsy ISCHEMIC TIME: 1 minute MICROSCOPIC DIAGNOSIS Right breast, ultrasound-guided mammotome core biopsy: Fragments of benign breast tissue with extensive dense fibrosis. Medial calcification blood vessel wall. Negative for atypia or malignancy. ANGELY:quirino 09/07/18 COMMENT Correlation with clinical, radiologic findings and appropriate follow up are necessary. MICROSCOPIC DESCRIPTION Slides are reviewed. GROSS DESCRIPTION Received in fixative is one container labeled with the patient's name and designated mammotome biopsy right breast. The specimen consists of multiple irregular fragments of light irvin-white soft tissue that in aggregate measure 1.5 x 1 x 0.1 cm. The specimen is totally submitted in one cassette. / AM:quirino 09/06/18 TC:5 CPT: 71086
[2018-09-05 14:10] VITALS: BMI 37.0
== END ==
PROVIDERS: Family Provider Family Medicine Geriatric Medicine; PCP Family Medicine Geriatric Medicine; Referring Provider Surgery; Visit Provider Surgery
DX: R92.8 Other abnormal and inconclusive findings on diagnostic imaging of breast (principal)
CPT/HCPCS: 88305

== ENCOUNTER → 2019-01-17 12:19 | Outpatient (CLI) | payer MEDICARE, OTHER, SELFPAY ==
[2019-01-07 13:46] VITALS: BMI 38.5
[2019-01-17 12:50] LABS: Absolute Lymphocyte Count 3.12 X10^3/ul (0.83-4.51); Absolute Neutrophil Count 4.1 X10^3/uL (2.0-7.7); Basophil# 0.04 X10^3/uL; Basophil% 0.5 % (0-1); Eosinophil# 0.23 X10^3/uL; Eosinophils% 2.9 % (0-5); Hematocrit 41.9 % (37-47); Hemoglobin 13.5 g/dl (12.0-15.0); Lymphocyte # 3.12 X10^3/ul (4.0); Mean Corp Hgb Conc 32.2 g/gl (32-36); Mean Corpuscular Hgb 28.8 pg (27.0-32.0); Mean Corpuscular Volume 89.3 fL (81-99); Mean Platelet Vol. 11.9 fl (6.2-12.0); Monocyte# 0.48 X10^3/uL; Neutrophil # 4.14 X10^3/uL (2.7-7.7); Neutrophil % 51.6 % (47-70); Platelet Count 198 K/mm3 (150-450); RBC Distribution Width CV 14.4 % (11.6-14.6); RBC Distribution Width SD 46.8 fl (35.1-43.9); Red Blood Count 4.69 M/mm3 (4.2-5.4)
[2019-01-17 12:51] LABS: POSITIVE COUNT NO; POSITIVE DIFFERENTIAL NO; POSITIVE MORPHOLOGY NO
[2019-01-17 13:26] LABS: ALB/GLOB Ratio 1.2 RATIO (0.9-2.4); AST(SGOT) 19 U/L (15-37); Alanine Aminotransfer ALT/SGPT 24 U/L (13-56); Alkaline Phosphatase 87 U/L (45-117); Anion Gap 6 (5-15); BUN 20 mg/dL (7-18); BUN/Creat Ratio 20.8 RATIO (10-20); Calcium,Total 8.8 mg/dL (8.5-10.1); Chloride 109 mmol/L (98-107); Creatinine, Serum 0.96 mg/dL (0.55-1.02); EST Glomerular Filtration Rate 61 mL/min (>60); Est Glom Filt Rate - Afr Amer 74 mL/min (>60); Globulin 3.3 g/dL (2.2-4.2); Glucose 90 mg/dL (74-106); Potassium 3.9 mmol/L (3.5-5.1); Protein, Total 7.3 g/dL (6.4-8.2); Sodium Level 143 mmol/L (136-145)
[2019-01-17 14:19] LABS: Vitamin D,25 Hydroxy 32.7 ng/mL (29.95-100.01)
== END ==
PROVIDERS: Family Provider Family Medicine Geriatric Medicine; PCP Family Medicine Geriatric Medicine; Visit Provider Family Medicine Geriatric Medicine
DX: I10 Essential (primary) hypertension (principal); E55.9 Vitamin D deficiency, unspecified
CPT/HCPCS: 36415; 80053; 82306; 84443; 85025

== ENCOUNTER → 2019-01-21 13:48 | Outpatient (CLI) | payer MEDICARE, OTHER, SELFPAY ==
[2019-01-07 13:46] VITALS: BMI 38.5
--- NOTE | 2019-01-21 13:57 | ECHOCS_ITS ---
Reason For Study: MURMUR Procedure This was a 2D Doppler, Color Flow transthoracic echocardiogram. The study was technically difficult. Contrast injection was performed. Exam performed in department. Left Ventricle Normal LV size. Left ventricular systolic function is normal. The estimated ejection fraction is 65 %. Diastolic function is indeterminate. No regional wall motion abnormalities noted. Right Ventricle Normal RV size. Normal systolic function. Atria The left atrium is mildly enlarged. Normal right atrium. No doppler evidence for ASD. Mitral Valve There is no mitral annular calcification. Normal mitral valve. Trivial mitral valve insufficiency. Tricuspid Valve Normal tricuspid valve. Trivial tricuspid valve insufficiency. Right ventricular systolic pressure estimated to be 30 mmHg. Aortic Valve Trisinus/trileaflet aortic valve. Moderate focal aortic valve calcification. Moderate aortic stenosis. Trivial aortic valve insufficiency. Pulmonic Valve The pulmonic valve is not well visualized. Trivial pulmonic valve insufficiency. Great Vessels Normal sized aortic root. Pericardium/Pleural No pericardial effusion. Medication 22 gauge I.V. with prn adaptor inserted into left arm. Diluted definity 2.5ml given slow IV push to enhance endocardial definition. MMode/2D Measurements & Calculations LVIDd: 4.7 cm IVSd: 0.97 cm LVOT diam: 2.0 cm LVIDs: 3.3 cm LVPWd: 1.4 cm RVDd: 3.6 cm FS: 30.2 % LVOT area: 3.1 cm2 Ao root diam: 2.9 cm LAV(MOD-bp): 43.1 ml LVAd ap4: 34.9 cm2 LAV(MOD-bp) Indexed: 22.4 ml/m2 EDV(MOD-sp4): 120.9 ml LAV(MOD-sp2): 33.9 ml EDV(sp4-el): 128.4 ml LAV(MOD-sp4): 52.8 ml LVAs ap4: 17.6 cm2 ESV(MOD-sp4): 38.1 ml ESV(sp4-el): 39.7 ml EF(MOD-sp4): 68.5 % EF(sp4-el): 69.1 % SV(MOD-sp4): 82.8 ml SV(sp4-el): 88.7 ml LA A4 area: 18.6 cm2 LA dimension(2D): 4.3 cm RA A4 area: 14.8 cm2 Time Measurements MV dec time: 0.20 sec Doppler Measurements & Calculations MV E max audie: 71.0 cm/sec Lat Peak E' Audie: 5.6 cm/sec Med Peak E' Audie: 4.3 cm/sec MV A max audie: 98.6 cm/sec E/E' lat: 12.7 E/E' med: 16.7 MV E/A: 0.72 Ao V2 max: 331.1 cm/sec LV V1 max: 98.6 cm/sec SV(LVOT): 72.6 ml Ao max P.9 mmHg LV V1 max P.9 mmHg Ao V2 mean: 233.1 cm/sec LV V1 mean P.1 mmHg Ao mean P.1 mmHg LV V1 mean: 68.1 cm/sec Ao V2 VTI: 73.3 cm LV V1 VTI: 23.8 cm CRISPIN(I,D): 0.99 cm2 CRISPIN(V,D): 0.91 cm2 PA V2 max: 103.8 cm/sec TR max audie: 261.0 cm/sec TR max P.4 mmHg Interpretation Summary The study was technically difficult. Contrast injection was performed. Left ventricular systolic function is normal. The estimated ejection fraction is 65 %. The left atrium is mildly enlarged. Trivial mitral valve insufficiency. Trivial tricuspid valve insufficiency. Moderate aortic stenosis. Trivial pulmonic valve insufficiency. Right ventricular systolic pressure estimated to be 30 mmHg. Diastolic function is indeterminate. Ordering Physician: Phillip Soler Referring Physician: PETRA RICO CHI Performed By: Naomie Weller, LISACS, RVT
== END ==
PROVIDERS: Family Provider Family Medicine Geriatric Medicine; PCP Family Medicine Geriatric Medicine; Referring Provider Internal Medicine Cardiovascular Disease; Visit Provider Internal Medicine Cardiovascular Disease
DX: I35.0 Nonrheumatic aortic (valve) stenosis (principal)
CPT/HCPCS: 93306; Q9957; A4216; C8929

== ENCOUNTER → 2019-06-03 09:05 | Outpatient (CLI) | payer MEDICARE, OTHER, SELFPAY ==
[2019-01-07 13:46] VITALS: BMI 38.5
[2019-06-03 12:29] LABS: Absolute Lymphocyte Count 3.09 X10^3/uL (0.83-4.51); Basophil# 0.04 X10^3/uL; Basophil% 0.5 % (0-1); Eosinophil# 0.23 X10^3/uL; Eosinophils% 2.9 % (0-5); Hematocrit 40.8 % (37-47); Lymphocyte # 3.09 X10^3/ul (4.0); Lymphocyte % 38.9 % (19-41); Mean Corp Hgb Conc 31.9 g/dL (32-36); Mean Corpuscular Hgb 29.5 pg (27.0-32.0); Mean Corpuscular Volume 92.7 fL (81-99); Mean Platelet Vol. 12.3 fl (6.2-12.0); Monocyte# 0.56 X10^3/uL; Monocyte% 7.1 % (0-10); NRBC Flagged by Analyzer 0 % (0-5); Neutrophil # 3.98 X10^3/uL (2.7-7.7); Neutrophil % 50.1 % (47-70); Platelet Count 187 K/mm3 (150-450); RBC Distribution Width CV 13.6 % (11.6-14.6); RBC Distribution Width SD 46.9 fl (35.1-43.9); White Blood Count 7.9 K/mm3 (4.4-11.0)
[2019-06-03 12:47] LABS: Vitamin D,25 Hydroxy 40.6 ng/mL (29.95-100.01)
[2019-06-03 13:04] LABS: AST(SGOT) 24 U/L (15-37); Alanine Aminotransfer ALT/SGPT 36 U/L (13-56); Albumin, Serum 3.6 g/dL (3.2-5.0); Alkaline Phosphatase 103 U/L (45-117); Anion Gap 7 (5-15); BUN 18 mg/dL (7-18); BUN/Creat Ratio 16.2 RATIO (10-20); Calcium,Total 8.7 mg/dL (8.5-10.1); Chloride 109 mmol/L (98-107); Creatinine, Serum 1.11 mg/dL (0.55-1.02); EST Glomerular Filtration Rate 52 mL/min (>60); Est Glom Filt Rate - Afr Amer 63 mL/min (>60); Globulin 3.5 g/dL (2.2-4.2); Glucose 89 mg/dL (74-106); Potassium 3.6 mmol/L (3.5-5.1); Protein, Total 7.1 g/dL (6.4-8.2); Sodium Level 141 mmol/L (136-145); Thyroid Stim Hormone (TSH) 2.57 uIU/mL (0.358-3.74)
== END ==
PROVIDERS: Family Provider Family Medicine Geriatric Medicine; PCP Family Medicine Geriatric Medicine; Visit Provider Family Medicine Geriatric Medicine
DX: I10 Essential (primary) hypertension (principal); E55.9 Vitamin D deficiency, unspecified
CPT/HCPCS: 36415; 80053; 82306; 84443; 85025

== ENCOUNTER → 2020-06-11 10:04 | Outpatient (CLI) | payer MEDICARE, OTHER, SELFPAY ==
[2020-01-20 14:04] VITALS: BMI 41.8
[2020-06-11 12:48] LABS: Absolute Lymphocyte Count 3.45 X10^3/uL (0.83-4.51); Absolute Neutrophil Count 5.1 X10^3/uL (2.0-7.7); Basophil# 0.06 X10^3/uL; Basophil% 0.6 % (0-1); Eosinophils% 3.1 % (0-5); Hematocrit 42.6 % (37-47); Hemoglobin 13.1 g/dL (12.0-15.0); Lymphocyte # 3.45 X10^3/ul (4.0); Lymphocyte % 36.1 % (19-41); Mean Corp Hgb Conc 30.8 g/dL (32-36); Mean Corpuscular Hgb 28.7 pg (27.0-32.0); Mean Corpuscular Volume 93.2 fL (81-99); Mean Platelet Vol. 12.7 fl (6.2-12.0); Monocyte# 0.66 X10^3/uL; Monocyte% 6.9 % (0-10); NRBC Flagged by Analyzer 0 % (0-5); Neutrophil # 5.05 X10^3/uL (2.7-7.7); Platelet Count 207 K/mm3 (150-450); RBC Distribution Width CV 13.9 % (11.6-14.6); RBC Distribution Width SD 47.7 fl (35.1-43.9); Red Blood Count 4.57 M/mm3 (4.2-5.4); White Blood Count 9.6 K/mm3 (4.4-11.0)
[2020-06-11 13:02] LABS: Vitamin D,25 Hydroxy 33.4 ng/mL
[2020-06-11 13:09] LABS: AST(SGOT) 19 U/L (15-37); Alanine Aminotransfer ALT/SGPT 33 U/L (13-56); Albumin, Serum 3.7 g/dL (3.2-5.0); Alkaline Phosphatase 104 U/L (45-117); Anion Gap 7 (5-15); BUN 17 mg/dL (7-18); BUN/Creat Ratio 16.2 RATIO (10-20); Calcium,Total 8.6 mg/dL (8.5-10.1); Chloride 107 mmol/L (98-107); Creatinine, Serum 1.05 mg/dL (0.55-1.02); EST Glomerular Filtration Rate 55 mL/min (>60); Est Glom Filt Rate - Afr Amer 67 mL/min (>60); Globulin 3.6 g/dL (2.2-4.2); Glucose 96 mg/dL (74-106); Protein, Total 7.3 g/dL (6.4-8.2); Sodium Level 142 mmol/L (136-145); Thyroid Stim Hormone (TSH) 2.12 uIU/mL (0.358-3.74)
== END ==
PROVIDERS: PCP Family Medicine Geriatric Medicine; Visit Provider Family Medicine Geriatric Medicine
DX: I10 Essential (primary) hypertension (principal); E55.9 Vitamin D deficiency, unspecified
CPT/HCPCS: 36415; 80053; 82306; 84443; 85025

== ENCOUNTER → 2020-12-29 11:38 | Outpatient (CLI) | payer MEDICARE, OTHER, SELFPAY ==
[2020-01-20 14:04] VITALS: BMI 41.8
[2020-12-29 12:11] LABS: Absolute Lymphocyte Count 3.46 X10^3/uL (0.83-4.51); Absolute Neutrophil Count 4.9 X10^3/uL (2.0-7.7); Basophil# 0.05 X10^3/uL; Basophil% 0.5 % (0-1); Eosinophil# 0.33 X10^3/uL; Eosinophils% 3.5 % (0-5); Hematocrit 43.9 % (37-47); Hemoglobin 13.7 g/dL (12.0-15.0); Lymphocyte # 3.46 X10^3/ul (4.0); Lymphocyte % 36.3 % (19-41); Mean Corp Hgb Conc 31.2 g/dL (32-36); Mean Corpuscular Hgb 28.5 pg (27.0-32.0); Mean Corpuscular Volume 91.5 fL (81-99); Mean Platelet Vol. 12.6 fl (6.2-12.0); Monocyte# 0.72 X10^3/uL; Monocyte% 7.6 % (0-10); NRBC Flagged by Analyzer 0 % (0-5); Neutrophil # 4.93 X10^3/uL (2.7-7.7); Neutrophil % 51.8 % (47-70); Platelet Count 214 K/mm3 (150-450); RBC Distribution Width CV 14.4 % (11.6-14.6); RBC Distribution Width SD 48.9 fl (35.1-43.9); White Blood Count 9.5 K/mm3 (4.4-11.0)
[2020-12-29 12:34] LABS: ALB/GLOB Ratio 1.1 RATIO (0.9-2.4); AST(SGOT) 15 U/L (15-37); Alanine Aminotransfer ALT/SGPT 24 U/L (13-56); Albumin, Serum 3.8 g/dL (3.2-5.0); Alkaline Phosphatase 90 U/L (45-117); Anion Gap 6 (5-15); BUN 27 mg/dL (7-18); BUN/Creat Ratio 24.3 RATIO (10-20); Chloride 103 mmol/L (98-107); Creatinine, Serum 1.11 mg/dL (0.55-1.02); EST Glomerular Filtration Rate 52 mL/min (>60); Est Glom Filt Rate - Afr Amer 63 mL/min (>60); Globulin 3.4 g/dL (2.2-4.2); Glucose 117 mg/dL (74-106); Potassium 3.7 mmol/L (3.5-5.1); Protein, Total 7.2 g/dL (6.4-8.2); Sodium Level 138 mmol/L (136-145); Thyroid Stim Hormone (TSH) 2.23 uIU/mL (0.358-3.74)
== END ==
PROVIDERS: PCP Family Medicine Geriatric Medicine; Visit Provider Family Medicine Geriatric Medicine
DX: I10 Essential (primary) hypertension (principal); E55.9 Vitamin D deficiency, unspecified
CPT/HCPCS: 36415; 80053; 82306; 84443; 85025

== ENCOUNTER → 2020-12-29 12:48 | Outpatient (CLI) | payer MEDICARE, OTHER, SELFPAY ==
[2020-01-20 14:04] VITALS: BMI 41.8
--- NOTE | 2020-12-29 12:59 | BI_ITS ---
MAMMOGRAPHY - BILATERAL SCREENING REASON FOR EXAM: Female, 70 years old. Routine annual screening examination. PERTINENT HISTORY: Sister with breast cancer. Prior right ultrasound-guided breast biopsy. TECHNIQUE: Digital bilateral breast lamberto (3D mammographic acquisition) in the CC and MLO projections. 2-D mediolateral oblique (MLO) and craniocaudad (CC) views of both breasts were obtained. CAD: Full Field Digital Mammography with Computer Added Detection was performed. COMPARISON: Comparison is made with prior study dated 08/30/2018 and 08/15/2016. FINDINGS: Breast Composition: The breasts are heterogeneously dense, which may obscure small masses. There are no dominant masses or suspicious calcifications. A tissue clip marker is seen in the inferior anterior medial aspect of the right breast. This is in keeping with the patient''s history of prior ultrasound-guided biopsy. No other significant abnormalities are identified. There has been no significant change since the prior study. BI/SCRN MAMM (CAD)W/LAMBERTO BILAT IMPRESSION: Stable bilateral screening mammogram. Yearly follow-up mammogram recommended. (A) ASSESSMENT CATEGORY: BIRADS Category 2: Benign. A letter regarding these results will be sent to the patient by the facility within 30 days. Approximately 10% of breast cancers are not detected by mammography. A normal mammogram should not delay biopsy of a clinically suspicious abnormality. [id number] Electronically Signed: Jake Espinosa MD at 13:53 EDT , Service support ,
--- NOTE | 2020-12-29 13:29 | ECHOCS_ITS ---
Reason For Study: Procedure This was a 2D Doppler, Color Flow transthoracic echocardiogram. The study was technically difficult. Contrast injection was performed. Exam performed in department. Left Ventricle Normal LV size. Moderate concentric left ventricular hypertrophy. Left ventricular systolic function is normal. The estimated ejection fraction is 65 %. Diastolic function is indeterminate. No regional wall motion abnormalities noted. Right Ventricle Normal RV size. Normal systolic function. Atria The left atrium is mildly enlarged. Normal right atrium. No doppler evidence for ASD. Mitral Valve There is no mitral annular calcification. Normal mitral valve. Trivial mitral valve insufficiency. Tricuspid Valve Normal tricuspid valve. Trivial tricuspid valve insufficiency. Unable to estimate RV systolic pressure/pulmonary artery pressure due to technically difficult study. Aortic Valve Trisinus/trileaflet aortic valve. Moderate focal aortic valve calcification. Moderate aortic stenosis. Pulmonic Valve The pulmonic valve is not well visualized. Great Vessels The aortic root is not well visualized. Pericardium/Pleural No pericardial effusion. Epicardial fat. Medication 22 gauge I.V. with prn adaptor inserted into left arm. Diluted definity 4ml given slow IV push to enhance endocardial definition. MMode/2D Measurements & Calculations LVIDd: 4.3 cm IVSd: 1.3 cm LVOT diam: 2.0 cm LVIDs: 2.8 cm LVPWd: 1.6 cm FS: 35.2 % LVOT area: 3.2 cm2 LA dimension: 3.8 cm Time Measurements MV dec time: 0.26 sec Doppler Measurements & Calculations MV E max audie: 78.9 cm/sec Lat Peak E' Audie: 4.2 cm/sec Med Peak E' Audie: 9.2 cm/sec MV A max audie: 99.3 cm/sec E/E' lat: 18.8 E/E' med: 8.5 MV E/A: 0.79 MV V2 max: 121.3 cm/sec MV P1/2t max audie: 72.2 cm/sec Ao V2 max: 323.4 cm/sec MV max P.9 mmHg MV P1/2t: 76.3 msec Ao max P.0 mmHg MV V2 mean: 60.1 cm/sec Ao V2 mean: 223.9 cm/sec MV mean P.7 mmHg MV dec slope: 277.4 cm/sec2 Ao mean P.5 mmHg MV V2 VTI: 24.6 cm MVA(P1/2t): 2.9 cm2 Ao V2 VTI: 79.1 cm MVA(VTI): 2.9 cm2 CRISPIN(I,D): 0.90 cm2 CRISPIN(V,D): 0.92 cm2 LV V1 max: 94.0 cm/sec SV(LVOT): 71.0 ml PA V2 max: 107.9 cm/sec LV V1 max P.5 mmHg LV V1 mean P.0 mmHg LV V1 mean: 65.8 cm/sec LV V1 VTI: 22.5 cm ECHO/Echo Complete W/ Contrast Interpretation Summary The study was technically difficult. Contrast injection was performed. Left ventricular systolic function is normal. The estimated ejection fraction is 65 %. Moderate concentric left ventricular hypertrophy. The left atrium is mildly enlarged. Trivial mitral valve insufficiency. Trivial tricuspid valve insufficiency. Moderate aortic stenosis. Epicardial fat. Unable to estimate RV systolic pressure/pulmonary artery pressure due to techni bradley difficult study. Diastolic function is indeterminate. Ordering Physician: Phillip Soler Referring Physician: Abelino Ring Chi Performed By: Garret Arauz RCS
== END ==
PROVIDERS: PCP Family Medicine Geriatric Medicine; Referring Provider Family Medicine Geriatric Medicine; Visit Provider Family Medicine Geriatric Medicine
DX: Z12.31 Encounter for screening mammogram for malignant neoplasm of breast (principal); I35.0 Nonrheumatic aortic (valve) stenosis; I10 Essential (primary) hypertension; E78.5 Hyperlipidemia, unspecified; E55.9 Vitamin D deficiency, unspecified; Z80.3 Family history of malignant neoplasm of breast
CPT/HCPCS: 36415; 77063; 77067; 80053; 82306; 84443; 85025; 93306; Q9957; A4216; C8929

== ENCOUNTER 2021-12-30 10:39 | Outpatient (CLI) | payer MEDICARE, OTHER, SELFPAY ==
[2021-12-30 12:36] LABS: Absolute Lymphocyte Count 3.36 X10^3/uL (0.83-4.51); Absolute Neutrophil Count 4.2 X10^3/uL (2.0-7.7); Basophil# 0.06 X10^3/uL; Basophil% 0.7 % (0-1); Eosinophil# 0.25 X10^3/uL; Hemoglobin 12.6 g/dL (12.0-15.0); Lymphocyte # 3.36 X10^3/ul (0.83-4.51); Lymphocyte % 39.8 % (19-41); Mean Corp Hgb Conc 32.3 g/dL (32-36); Mean Corpuscular Hgb 29.4 pg (27.0-32.0); Mean Corpuscular Volume 91.1 fL (81-99); Mean Platelet Vol. 11.8 fl (6.2-12.0); Monocyte# 0.51 X10^3/uL; NRBC Flagged by Analyzer 0 % (0-5); Neutrophil # 4.22 X10^3/uL (2.7-7.7); Platelet Count 221 K/mm3 (150-450); RBC Distribution Width CV 13.7 % (11.6-14.6); RBC Distribution Width SD 45.4 fl (35.1-43.9); Red Blood Count 4.28 M/mm3 (4.2-5.4); White Blood Count 8.4 K/mm3 (4.4-11.0)
[2021-12-30 12:48] LABS: Vitamin D,25 Hydroxy 40.5 ng/mL
[2021-12-30 12:54] LABS: ALB/GLOB Ratio 1.1 RATIO (0.9-2.4); AST(SGOT) 16 U/L (15-37); Alanine Aminotransfer ALT/SGPT 28 U/L (13-56); Albumin, Serum 3.6 g/dL (3.2-5.0); Alkaline Phosphatase 90 U/L (45-117); Anion Gap 2 (5-15); BUN 19 mg/dL (7-18); BUN/Creat Ratio 16.7 RATIO (10-20); Chloride 106 mmol/L (98-107); Creatinine, Serum 1.14 mg/dL (0.55-1.02); EST Glomerular Filtration Rate 50 mL/min (>60); Est Glom Filt Rate - Afr Amer 60 mL/min (>60); Globulin 3.4 g/dL (2.2-4.2); Glucose 105 mg/dL (74-106); Potassium 4.1 mmol/L (3.5-5.1); Sodium Level 139 mmol/L (136-145); Thyroid Stim Hormone (TSH) 1.77 uIU/mL (0.358-3.74)
== END 2021-12-30 23:59 | disposition home or self-care (01) ==
LOC: POLAB3 10:41
PROVIDERS: PCP Family Medicine Geriatric Medicine; Visit Provider Family Medicine Geriatric Medicine
DX: E55.9 Vitamin D deficiency, unspecified (principal); I10 Essential (primary) hypertension
CPT/HCPCS: 36415; 80053; 82306; 84443; 85025

== ENCOUNTER → 2022-02-23 | Outpatient (CLI) | payer MEDICARE, OTHER, SELFPAY ==
--- NOTE | 2022-02-23 12:54 | ECHOD_ITS ---
Reason For Study: MURMUR Procedure This was a 2D Doppler, Color Flow transthoracic echocardiogram. The study was technically difficult. Exam performed in department. Left Ventricle Normal LV size. Moderate concentric left ventricular hypertrophy. Left ventricular systolic function is normal. The estimated ejection fraction is 65 %. There is evidence of diastolic dysfunction. No regional wall motion abnormalities noted. Right Ventricle Normal RV size. Normal systolic function. Atria The left atrium is mildly enlarged. Normal right atrium. No doppler evidence for ASD. Mitral Valve There is no mitral annular calcification. Normal mitral valve. Trivial mitral valve insufficiency. Tricuspid Valve Normal tricuspid valve. Trivial tricuspid valve insufficiency. Unable to estimate RV systolic pressure/pulmonary artery pressure due to technically difficult study. Aortic Valve Trisinus/trileaflet aortic valve. Mild diffuse aortic valve thickening. Moderate diffuse aortic valve calcification. Moderate aortic stenosis. Pulmonic Valve The pulmonic valve is not well visualized. Great Vessels The aortic root is not well visualized. Pericardium/Pleural No pericardial effusion. MMode/2D Measurements & Calculations LVIDd: 5.1 cm IVSd: 1.3 cm LVOT diam: 2.0 cm LVIDs: 3.3 cm LVPWd: 1.6 cm LVOT area: 3.3 cm2 FS: 34.9 % LAV(MOD-sp4): 77.9 ml LVAd ap4: 20.9 cm2 SV(MOD-sp4): 24.6 ml LVLd ap4: 7.6 cm EDV(MOD-sp4): 48.0 ml EDV(sp4-el): 48.7 ml LVAs ap4: 12.4 cm2 LVLs ap4: 6.2 cm ESV(MOD-sp4): 23.4 ml ESV(sp4-el): 20.9 ml EF(MOD-sp4): 51.2 % EF(sp4-el): 57.0 % SV(sp4-el): 27.8 ml LA A4 area: 23.8 cm2 RA A4 area: 12.6 cm2 Doppler Measurements & Calculations MV E max audie: 78.9 cm/sec Lat Peak E' Audie: 5.0 cm/sec Med Peak E' Audie: 4.6 cm/sec MV A max audie: 103.0 cm/sec E/E' lat: 15.9 E/E' med: 17.2 MV E/A: 0.77 Ao V2 max: 353.9 cm/sec LV V1 max: 89.6 cm/sec SV(LVOT): 70.1 ml Ao max P.1 mmHg LV V1 max P.2 mmHg Ao V2 mean: 251.0 cm/sec LV V1 mean P.5 mmHg Ao mean P.0 mmHg LV V1 mean: 57.5 cm/sec Ao V2 VTI: 75.8 cm LV V1 VTI: 21.5 cm CRISPIN(I,D): 0.92 cm2 CRISPIN(V,D): 0.82 cm2 PA V2 max: 124.2 cm/sec ECHO/Echo Complete Interpretation Summary The study was technically difficult. Left ventricular systolic function is normal. The estimated ejection fraction is 65 %. The left atrium is mildly enlarged. Trivial mitral valve insufficiency. Trivial tricuspid valve insufficiency. Moderate aortic stenosis. Unable to estimate RV systolic pressure/pulmonary artery pressure due to techni bradley difficult study. There is evidence of diastolic dysfunction. Ordering Physician: Phillip Soler Referring Physician: Phillip Soler Performed By: Karlee Nuñez RCS
== END | disposition home or self-care (01) ==
LOC: CVS 12:53
PROVIDERS: PCP Family Medicine Geriatric Medicine; Referring Provider Internal Medicine Cardiovascular Disease; Visit Provider Internal Medicine Cardiovascular Disease
DX: I51.7 Cardiomegaly (principal); I35.0 Nonrheumatic aortic (valve) stenosis; R01.1 Cardiac murmur, unspecified
CPT/HCPCS: 93306

== ENCOUNTER → 2022-03-02 | Outpatient (CLI) | payer MEDICARE, OTHER, SELFPAY ==
--- NOTE | 2022-03-02 09:25 | BI_ITS ---
MAMMOGRAPHY - BILATERAL SCREENING REASON FOR EXAM: Female, 71 years old. Routine annual screening examination. PERTINENT HISTORY: Sister with breast cancer. History of prior right ultrasound-guided breast biopsy. TECHNIQUE: Digital bilateral breast lamberto (3D mammographic acquisition) in the CC and MLO projections. 2-D mediolateral oblique (MLO) and craniocaudad (CC) views of both breasts were obtained. CAD: Full Field Digital Mammography with Computer Added Detection was performed. COMPARISON: Comparison is made with prior study dated 12/29/2020 and 08/30/2018. FINDINGS: Breast Composition: The breasts are heterogeneously dense, which may obscure small masses. There are no dominant masses or suspicious calcifications. A tissue clip marker is once again seen in the inferior anterior medial aspect of the right breast in keeping with the patient''s history of prior ultrasound-guided breast biopsy fat-containing bilateral axillary lymph nodes. No other significant abnormalities are identified. There has been no significant change since the prior study. BI/SCRN MAMM (CAD)W/LAMBERTO BILAT IMPRESSION: Stable bilateral screening mammogram. Yearly follow-up mammogram recommended. (A) ASSESSMENT CATEGORY: BIRADS Category 2: Benign. A letter regarding these results will be sent to the patient by the facility within 30 days. Approximately 10% of breast cancers are not detected by mammography. A normal mammogram should not delay biopsy of a clinically suspicious abnormality. [id number] Electronically Signed: Jake Espinosa MD at 10:14 EDT ,
== END | disposition home or self-care (01) ==
LOC: OPBI 09:24
PROVIDERS: PCP Family Medicine Geriatric Medicine; Visit Provider Family Medicine Geriatric Medicine
DX: Z12.31 Encounter for screening mammogram for malignant neoplasm of breast (principal); Z80.3 Family history of malignant neoplasm of breast
CPT/HCPCS: 77063; 77067

== ENCOUNTER → 2023-01-30 | Outpatient (CLI) | payer MEDICARE, OTHER, SELFPAY ==
--- NOTE | 2023-01-30 09:55 | ECHOD_ITS ---
Reason For Study: MURMUR Procedure This was a 2D Doppler, Color Flow transthoracic echocardiogram. Exam performed in department. Left Ventricle Normal LV size. Left ventricular systolic function is normal. The estimated ejection fraction is 60 %. Stage 1 diastolic dysfunction. No regional wall motion abnormalities noted. Right Ventricle Normal RV size. Normal systolic function. Atria The left atrium is moderately enlarged. Normal right atrium. Mitral Valve Normal mitral valve. Tricuspid Valve Normal tricuspid valve. Aortic Valve Trisinus/trileaflet aortic valve. Moderate diffuse aortic valve calcification. Peak aortic valve gradient 63 mmHg. Mean aortic valve gradient 42 mmHg. Moderate to severe aortic stenosis. Pulmonic Valve Normal pulmonic valve. Great Vessels Normal aortic root. The pulmonary artery is normal size. Normal inferior vena cava. Pericardium/Pleural No pericardial effusion. MMode/2D Measurements & Calculations LVIDd: 5.8 cm IVSd: 1.0 cm LVOT diam: 2.1 cm LVIDs: 4.2 cm LVPWd: 1.4 cm LVOT area: 3.4 cm2 FS: 28.0 % Ao root diam: 3.2 cm LAV(MOD-bp): 76.3 ml LVAd ap4: 25.9 cm2 LAV(MOD-bp) Indexed: 37.6 ml/m2 LVLd ap4: 7.9 cm LAV(MOD-sp2): 64.4 ml EDV(MOD-sp4): 70.8 ml LAV(MOD-sp4): 87.5 ml EDV(sp4-el): 71.8 ml LVAs ap4: 14.9 cm2 LVLs ap4: 6.0 cm ESV(MOD-sp4): 33.6 ml ESV(sp4-el): 31.8 ml EF(MOD-sp4): 52.6 % EF(sp4-el): 55.8 % SV(MOD-sp4): 37.2 ml SV(sp4-el): 40.0 ml LA A4 area: 25.2 cm2 RA A4 area: 11.2 cm2 Time Measurements MV dec time: 0.26 sec Doppler Measurements & Calculations MV E max audie: 72.9 cm/sec Lat Peak E' Audie: 5.3 cm/sec Med Peak E' Audie: 6.0 cm/sec MV A max audie: 74.5 cm/sec E/E' lat: 13.6 E/E' med: 12.2 MV E/A: 0.98 MV V2 max: 91.2 cm/sec Ao V2 max: 391.7 cm/sec MV max P.3 mmHg MV dec slope: 299.0 cm/sec2 Ao max P.6 mmHg MV V2 mean: 53.1 cm/sec Ao V2 mean: 314.5 cm/sec MV mean P.4 mmHg Ao mean P.0 mmHg MV V2 VTI: 27.9 cm Ao V2 VTI: 105.9 cm AV (velocity ratio): 0.25 MVA(VTI): 3.2 cm2 CRISPIN(I,D): 0.86 cm2 CRISPIN(V,D): 0.89 cm2 LV V1 max: 103.7 cm/sec SV(LVOT): 90.6 ml PA V2 max: 89.9 cm/sec LV V1 max P.3 mmHg PA V2 mean: 67.9 cm/sec LV V1 mean P.7 mmHg LV V1 mean: 77.9 cm/sec LV V1 VTI: 26.9 cm ECHO/Echo Complete Interpretation Summary Normal LV size. Left ventricular systolic function is normal. The estimated ejection fraction is 60 %. Stage 1 diastolic dysfunction. Mean aortic valve gradient 42 mmHg. Moderate to severe aortic stenosis. Ordering Physician: Phillip Soler Referring Physician: Phillip Soler Performed By: Karlee Nuñez RCS
== END | disposition home or self-care (01) ==
LOC: CVS 09:51
PROVIDERS: PCP Family Medicine Geriatric Medicine; Referring Provider Internal Medicine Cardiovascular Disease; Visit Provider Internal Medicine Cardiovascular Disease
DX: I51.7 Cardiomegaly (principal); I35.0 Nonrheumatic aortic (valve) stenosis
CPT/HCPCS: 93306

== ENCOUNTER → 2023-02-03 | Outpatient (CLI) | payer MEDICARE, OTHER, SELFPAY ==
--- NOTE | 2023-02-03 11:12 | RAD_ITS ---
INDICATION: Cardiac catheterization EXAMINATION/TECHNIQUE: X-RAY - XR Chest 2 Views COMPARISON: Report of April 06, 2011 chest x-ray. FINDINGS: LINES/DEVICES: None. LUNGS: No focal consolidation or pleural effusion. No pneumothorax. MEDIASTINUM AND CARDIOVASCULAR STRUCTURES: Cardiac silhouette not enlarged. Aortic arch calcification. Pulmonary vascularity within normal limits. BONES AND SOFT TISSUES: Degenerative changes of the thoracic spine. RAD/Chest PA and Lateral IMPRESSION: No acute cardiopulmonary disease. Electronically Signed: Phillip Nair MD at 22:39 EDT ,
[2023-02-03 12:08] LABS: Absolute Lymphocyte Count 3.17 X10^3/uL (0.83-4.51); Absolute Neutrophil Count 4.7 X10^3/uL (2.0-7.7); Basophil# 0.05 X10^3/uL; Basophil% 0.6 % (0-1); Eosinophil# 0.25 X10^3/uL; Eosinophils% 2.9 % (0-5); Hematocrit 42.1 % (37-47); Hemoglobin 13.2 g/dL (12.0-15.0); Lymphocyte # 3.17 X10^3/ul (0.83-4.51); Lymphocyte % 36.3 % (19-41); Mean Corp Hgb Conc 31.4 g/dL (32-36); Mean Corpuscular Hgb 29.2 pg (27.0-32.0); Mean Corpuscular Volume 93.1 fL (81-99); Mean Platelet Vol. 11.8 fl (6.2-12.0); Monocyte# 0.59 X10^3/uL; Monocyte% 6.8 % (0-10); NRBC Flagged by Analyzer 0 % (0-5); Neutrophil # 4.65 X10^3/uL (2.7-7.7); Neutrophil % 53.2 % (47-70); Platelet Count 193 K/mm3 (150-450); RBC Distribution Width CV 14.2 % (11.6-14.6); RBC Distribution Width SD 48.1 fl (35.1-43.9); Red Blood Count 4.52 M/mm3 (4.2-5.4); White Blood Count 8.7 K/mm3 (4.4-11.0)
[2023-02-03 12:29] LABS: Anion Gap 5 (5-15); BUN 17 mg/dL (7-18); BUN/Creat Ratio 15.3 RATIO (10-20); Calcium,Total 8.6 mg/dL (8.5-10.1); Chloride 109 mmol/L (98-107); Creatinine, Serum 1.11 mg/dL (0.55-1.02); EST Glomerular Filtration Rate 51 mL/min (>60); Est Glom Filt Rate - Afr Amer 62 mL/min (>60); Glucose 111 mg/dL (74-106); Sodium Level 141 mmol/L (136-145)
== END | disposition home or self-care (01) ==
PROVIDERS: PCP Family Medicine Geriatric Medicine; Referring Provider Nurse Practitioner Gerontology; Visit Provider Nurse Practitioner Gerontology
DX: I35.0 Nonrheumatic aortic (valve) stenosis (principal)
CPT/HCPCS: 36415; 71046; 80048; 85025

== ENCOUNTER 2023-02-15 10:28 | Day surgery (SDC) | payer MEDICARE, OTHER, SELFPAY ==
--- NOTE | 2023-02-07 10:27 | HP.PCM_ITS ---
History and Physical Date of Admission: 02/15/23
--- NOTE | 2023-02-07 10:27 | PCM.HP.BLA ---
History and Physical Date of Admission: 02/15/23
[2023-02-14 08:06] VITALS: BMI 41.8
--- NOTE | 2023-02-15 12:27 | CL.D_ITS ---
Patient Name: SHAWN TIMMONS Study Date: 02/15/2023 Performing: Willis James MD Ht: 62 inches 157.48 cm : 1950 Wt: 228.99 lbs 103.87 kg Age: 72 Gender: female BSA: 2.02 PROCEDURE(S) PERFORMED [id number])[facility] CLINICAL PROFILE AND INDICATIONS Indications: Valvular Disease Heart Failure: None Stress/Imaging Stress/Image Study Performed: No CAD Presentations: No Sxs, no angina. CONCLUSIONS Normal coronary arteries Aortic Valve Stenosis- Severe RECOMMENDATIONS TAVR DESCRIPTION OF PROCEDURE The patient arrived to the procedure lab. The risks and benefits of the procedure as well as a full description of our services here and current unavailability of surgical backup were fully explained to the patient and/or their significant other prior to the catheterization. The Timeout was completed, verifying the correct patient and procedure. The patient's procedural site was prepped and draped in the usual fashion. Local anesthetic was given subcutaneously to right radial region with Lidocaine 2%. Using a modified Seldinger technique, arterial access was obtained via the right radial artery, a 6Fr sheath was inserted. Left Coronary Artery selective angiography was performed in multiple views using a 5 Fr. 4.0 [place] catheter. Right Coronary Artery selective angiography was then performed in multiple views using a 5 Fr. 4.0 [place] catheter.The arterial sheath was pulled and a TR Band was applied for hemostasis CORONARY ANGIOGRAPHY DOMINANCE: Right Dominant LEFT HEART ASSESSMENT Left Ventricular Ejection Fraction: by Echo 60 % Normal LV wall motion Normal Left Ventricular systolic function LEFT MAIN: Angiographically normal LEFT ANTERIOR DESCENDING ARTERY: Angiographically normal CIRCUMFLEX ARTERY: Angiographically normal RIGHT CORONARY ARTERY: Angiographically normal VALVE FINDINGS: Aortic Valve Calcification - severe Aortic Valve Stenosis - severe COMPLICATIONS No Complications PROCEDURE MEDICATIONS Versed 1 mg IV Fentanyl 50 mcg IV Versed 1 mg IV Oxygen: 2 L/min via nasal cannula Heparin given IA 02/15/2023 12:10:28 SUMMARY OF HEMODYNAMIC DATA Time AIR REST ECG 10:48:06 Art 140/65 (94) 12:01:30 AO 110/63 (82) SA 12:11:46 Signed By Willis James MD On 02/15/2023 12:26:22 Willis James MD
== END 2023-02-15 13:50 | disposition home or self-care (01) ==
LOC: CLSP 10:30
PROVIDERS: PCP Family Medicine Geriatric Medicine; Referring Provider Internal Medicine Cardiovascular Disease; Visit Provider Internal Medicine Cardiovascular Disease
DX: I35.0 Nonrheumatic aortic (valve) stenosis (principal); E78.5 Hyperlipidemia, unspecified; I10 Essential (primary) hypertension; Z79.899 Other long term (current) drug therapy; E66.9 Obesity, unspecified; I51.7 Cardiomegaly; R06.09 Other forms of dyspnea; R93.1 Abnormal findings on diagnostic imaging of heart and coronary circulation; R94.39 Abnormal result of other cardiovascular function study
CPT/HCPCS: 93454; 99152; 99153; J7040; Q9967; C1769; C1894

== ENCOUNTER → 2023-02-28 | Outpatient (CLI) | payer MEDICARE, OTHER, SELFPAY ==
[2023-02-28 11:16] LABS: Absolute Neutrophil Count 5.4 X10^3/uL (2.0-7.7); Basophil# 0.05 X10^3/uL; Basophil% 0.5 % (0-1); Eosinophil# 0.27 X10^3/uL; Eosinophils% 2.8 % (0-5); Hematocrit 41.3 % (37-47); Lymphocyte % 35.9 % (19-41); Mean Corp Hgb Conc 31.5 g/dL (32-36); Mean Corpuscular Hgb 29.6 pg (27.0-32.0); Mean Corpuscular Volume 94.1 fL (81-99); Mean Platelet Vol. 11.8 fl (6.2-12.0); Monocyte# 0.55 X10^3/uL; Monocyte% 5.6 % (0-10); NRBC Flagged by Analyzer 0 % (0-5); Neutrophil # 5.35 X10^3/uL (2.7-7.7); Neutrophil % 54.8 % (47-70); Platelet Count 212 K/mm3 (150-450); RBC Distribution Width CV 13.8 % (11.6-14.6); RBC Distribution Width SD 47.8 fl (35.1-43.9); Red Blood Count 4.39 M/mm3 (4.2-5.4); White Blood Count 9.8 K/mm3 (4.4-11.0)
[2023-02-28 11:43] LABS: Vitamin D,25 Hydroxy 35.2 ng/mL
[2023-02-28 11:49] LABS: ALB/GLOB Ratio 1.1 RATIO (0.9-2.4); AST(SGOT) 13 U/L (15-37); Alanine Aminotransfer ALT/SGPT 22 U/L (13-56); Albumin, Serum 3.6 g/dL (3.2-5.0); Alkaline Phosphatase 90 U/L (45-117); Anion Gap 5 (5-15); BUN 16 mg/dL (7-18); Calcium,Total 8.9 mg/dL (8.5-10.1); Chloride 107 mmol/L (98-107); Creatinine, Serum 1.07 mg/dL (0.55-1.02); EST Glomerular Filtration Rate 54 mL/min (>60); Est Glom Filt Rate - Afr Amer 65 mL/min (>60); Globulin 3.4 g/dL (2.2-4.2); Glucose 107 mg/dL (74-106); Potassium 3.7 mmol/L (3.5-5.1); Sodium Level 141 mmol/L (136-145); Thyroid Stim Hormone (TSH) 2.09 uIU/mL (0.358-3.74)
== END | disposition home or self-care (01) ==
LOC: LAB 10:59
PROVIDERS: PCP Family Medicine Geriatric Medicine
DX: I35.0 Nonrheumatic aortic (valve) stenosis (principal); I10 Essential (primary) hypertension; E55.9 Vitamin D deficiency, unspecified
CPT/HCPCS: 36415; 80053; 82306; 84443; 85025

== ENCOUNTER → 2023-03-03 | Outpatient (CLI) | payer MEDICARE, OTHER, SELFPAY ==
--- NOTE | 2023-03-03 12:36 | BI_ITS ---
MAMMOGRAPHY - BILATERAL SCREENING REASON FOR EXAM: Female, 72 years old. Routine annual screening examination. PERTINENT HISTORY: Sister with breast cancer. TECHNIQUE: Digital bilateral breast lamberto (3D mammographic acquisition) in the CC and MLO projections. 2-D mediolateral oblique (MLO) and craniocaudad (CC) views of both breasts were obtained. CAD: Full Field Digital Mammography with Computer Added Detection was performed. COMPARISON: Comparison is made with prior study dated March 02, 2022 and December 29, 2020. FINDINGS: Breast Composition: The breasts are heterogeneously dense, which may obscure small masses. There is a 4.9 mm x 3.5 mm well-defined nodule in the upper lateral aspect of the left breast. Correlation with ultrasound is recommended. A tissue clip marker is seen in the inferior anterior medial aspect of the right breast. Stable fat-containing bilateral axillary lymph nodes. No other significant abnormalities are identified. BI/SCRN MAMM (CAD)W/LAMBERTO BILAT IMPRESSION: 4.9 mm x 3.5 mm well-defined nodule in the upper lateral aspect of the left breast. Correlation with ultrasound is recommended. ASSESSMENT CATEGORY: BIRADS Category 0: Incomplete. Need additional imaging evaluation. A letter regarding these results will be sent to the patient by the facility within 30 days. Approximately 10% of breast cancers are not detected by mammography. A normal mammogram should not delay biopsy of a clinically suspicious abnormality. [id number] Electronically Signed: Jake Espinosa MD at 13:47 EDT ,
== END | disposition home or self-care (01) ==
LOC: OPBI 12:34
PROVIDERS: PCP Family Medicine Geriatric Medicine; Referring Provider Family Medicine Geriatric Medicine; Visit Provider Family Medicine Geriatric Medicine
DX: Z12.31 Encounter for screening mammogram for malignant neoplasm of breast (principal); Z80.3 Family history of malignant neoplasm of breast
CPT/HCPCS: 77063; 77067

== ENCOUNTER → 2023-03-06 | Outpatient (CLI) | payer MEDICARE, OTHER, SELFPAY ==
--- NOTE | 2023-03-06 09:26 | US_ITS ---
STUDY: ULTRASOUND BREAST - LEFT REASON FOR EXAM: Female, 72 years old. Abnormal mammogram TECHNIQUE: Axial and longitudinal images of the LEFT breast were performed with a high resolution ultrasound transducer. # OF IMAGES: 29 COMPARISON: Mammogram from 03/03/2023 FINDINGS: LEFT Breast: Focused ultrasound evaluation of the upper outer quadrant. There is a simple 0.3 x 0.4 x 0.3 cm cyst at 2:00, 7 centimeters from the nipple. It is anechoic with smooth internal borders and increased through-transmission of sound. No suspicious shadowing solid lesion, architectural distortion, or clustered shadowing calcifications US/Breast Limited Unilateral IMPRESSION: Simple cyst, no suspicious sonographic findings ASSESSMENT CATEGORY: BIRADS Category 2: Benign. A letter regarding these results will be sent to the patient by the facility within 30 days. Electronically Signed: Rojas Hernandez MD at 15:48 EDT ,
== END | disposition home or self-care (01) ==
LOC: OPUS 09:24
PROVIDERS: PCP Family Medicine Geriatric Medicine; Referring Provider Family Medicine Geriatric Medicine; Visit Provider Family Medicine Geriatric Medicine
DX: R92.8 Other abnormal and inconclusive findings on diagnostic imaging of breast (principal)
CPT/HCPCS: 76642

== ENCOUNTER → 2023-04-12 | Outpatient (CLI) | payer MEDICARE, OTHER, SELFPAY ==
--- NOTE | 2023-04-12 08:01 | CR.HP_ITS ---
CR - History & Physical General Arrival date:: 04/12/23 Arrival time:: 08:02 Date of Referral:: 03/16/23 Date of CR Evaluation:: 04/12/23 (Delayed due to personal vacation planned) Referring Physician: Dr. Willis James Primary Diagnosis: Heart Valve Replacement History of Present Cardiac Event Onset Date Heart valve replacement or repair:: Yes (TAVR done at [facility]) Type of Symptoms:: No specific symptoms. about 10 years ago started seeing Dr. Soler. Annually has had echocardiogram, last echo showed change. Interventions with present event:: Annual echocardiograms and chest X-Ray Were there any complications?: Blood pressure increased. Medications Ambulatory Orders Medication Instructions Recorded cholecalciferol (vitamin D3) 25 25 mcg PO DAILY 01/20/20 mcg (1,000 unit) capsule doxycycline hyclate 50 mg tablet 50 mg PO DAILY 01/18/21 aspirin 81 mg capsule 81 mg PO DAILY 02/14/23 amlodipine 5 mg tablet 5 mg PO DAILY #30 tabs 03/28/23 Allergies Allergies amoxicillin Allergy (Verified 03/22/23 08:58) Rash bee venom protein (honey bee) Allergy (Verified 03/22/23 08:58) Swelling Sleep Disorder Evaluation Hx of Sleep Apnea: No Do you snore loudly (louder than talking or can be heard through closed doors)?: No (unknown) Do you often feel tired/ fatigued/ sleepy during daytime?: Yes Has anyone observed you stop breathing during sleep?: No History of Hypertension (for STOP score): Yes STOP Results: Positive Advanced Directives Advanced Directives Power of Director Of Group Counseling Program: Yes Living Will: Yes Advance Directives Information Provided: No Advance Directives on File: No DNR Order?:: No MOLST See MOLST form: No Past Medical History Covid-19 Screening Physicial Symptoms Fever: No Unexplained muscle aches: No Current respiratory symptoms: No Upper respiratory infections symptoms: No Gastro-intestinal symptoms: No Dit-Rdjc-Tbvdlp symptoms: No Other Clinical Concerns Has tested positive for COVID-19 in last 30 days: No Date of testin04/12/23 (unvaccinated; had COVID-19 three individual times and all were mild cases) Exposure Risk Had contact w/person w/symptoms or Covid-19 (+) last 14 days: No Has High Risk Exposures ID'd by Health dept/Inf Control team: No Pertinent Comorbidities 65 years or older:: Yes Lives in Assisted Living facility:: No Has a chronic lung disease or moderate to severe asthma:: No Has a serious heart condition:: No Immunocompromised:: No Severely obese (Body Mass Index of 40 or higher):: No Diabetic:: No Has chronic kidney disease undergoing dialysis:: No Has liver disease:: No Past Medical Illness Medical History (Reviewed 03/22/23 @ 08:56 by Janny Mooney [employer], [employer]) Anxiety Endometrial hyperplasia without atypia, simple Essential hypertension Hyperlipidemia Hypertension Left ventricular hypertrophy Nonrheumatic aortic (valve) stenosis Palpitations Past Surgical History Surgical History History of cardiac catheterization (~04/13/11) History of dilatation and curettage History of eye surgery History of hysteroscopy History of lumpectomy of right breast History of tonsillectomy History of tubal ligation s/p bilateral eye surgery S/P TAVR (transcatheter aortic valve replacement) (03/13/23) Family History Summary Family History Aunt Cancer Lung Uncle CVA (cerebral vascular accident) Father Heart disease Mother COPD (chronic obstructive pulmonary disease) Social History Smoking History Smoking Status: Never smoker Hx Tobacco Use: No Hx Smoking Exposure: No Alcohol Use Alcohol Usage: Yes (very occasional) Substance Abuse Hx Substance Use: No 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 One time when grocery shopping and one time at home while cleaning house.), Fatigue, Heart Arrhythmia/Irregularities (Palpitations), Appetite - Normal and Appetite - Special Diet (Trying to cut down on salt intake); Denies Shortness of Breath at Rest, Shortness of Breath with Exertion, PVD, Operative Discomfort, Angina or Sexual Changes Pain Is Patient Pain Free?: No Pain Location: none Pain Level: 0/10 Risk Factor Assessment Vital Signs Temperature: 97.6 F Respiratory Rate: 14 Pulse Ox: 97 Blood Pressure: 144/82 Pulse Pulse Rate: 63 Pulse Rhythm: Regular Hypertension How long have you been treated?: Just started BP meds after being home from surgery On medication(s)?: Amlodipine 5mg BID Blood Pressure Sitting - Right Arm: 144/82 Diabetes Nutrition Referral for Diabetes: No Obesity Height: 5 ft 2 in Weight:: 231 lb Weight in Pounds: 231.0 lbs Weight Source: Estimated by Patient Body Mass Index (BMI): 42.2 Nutritional Referral for Obesity: Yes Physical Inactivity Physical Inactivity: None Exercise Limitations: very sedintary activities Risk Stratification Risk Guidelines: Lowest Risk: Risk Factor for Smoking and Risk Factor for D epression, Moderate Risk: Risk Factor for Hypertension (144/82) and Risk Factor for Sedentary Lifestyle (Little physical activity at home) and Highest Risk: Risk Factor for Obesity (BMI 42) and Risk Factor for Sedentary Lifestyle (Little physical activity at home) For Smoking Smoking Risk Guidelines For Dyslipidemia Dyslipidemia Risk Guidelines For Diabetes Mellitus Diabetes Risk Guidelines For Obesity/Overweight Obesity/Overweight Risk Guidelines For Hypertension Hypertension Risk Guidelines For Sedentary Lifestyle Sedentary Lifestyle Risk Guidelines For Depression Depression Risk Guidelines Family History Family History (Reviewed 03/22/23 @ 08:56 by Janny Mooney [employer] INST[employer]ER, [employer]ER-C) Aunt Cancer Lung Uncle CVA (cerebral vascular accident) Father Heart disease Mother COPD (chronic obstructive pulmonary disease) Motivation Motivation to Participate On a scale of 1 to 10, how prepared are you to commit to attending program?: 10 What do you see as barriers to successfully being able to complete the program?: schedule; care transition mgr for 83 yr sister. being scheduled for surgery What do you see as the benefits of succesfully completing the program? In other words, what do you hope to get out of participating in the program?: Learnig diet, exercise, increase motivation, rejoining aqua-size Are there issues you are dealing with that will interfere with completing the program?: no Do you have a spouse or signficant other, family or friends who will help support you to complete the program?: Yes
--- NOTE | 2023-04-12 08:02 | PCM.CR.ITP ---
Diagnosis General Information Admitting Diagnosis: S/P Heart Valve Replacement (TAVR) by Dr. Wood at [facility] Secondary Diagnosis: New onset HTN Personal Learning Style:: Audio/Visual and Written Barriers to Learning: No Barriers Stage of change r/t lifestyle modifications:: Action Gave educational material for:: Treating Heart Disease, How The Heart Works, What it means to have Heart Disease, How Coronary Artery Disease is Diagnosed, Heart Procedures, What Heart Medications Do, Risk Factors & Modifications, Living an Active Life, Nutrition, Emotions & Heart Disease, Stress Management & Relaxation and Sleep Disorders & Heart Disease Education/Goals Individual Counseling: Initial Assessment: Abnormal Cholesterol Levels, High Blood Pressure and Overweight/Obesity (Referred to [facility] weight loss program) Cardiac Rehabilitation Goals Scale for measuring improvement of personal goals Diagnosis & Disease Process Outcomes/Goals: Pt IDs own risk factors & lifestyle modifications by Session 10, Verbalizes symptoms of angina & response by session 3. and Pt independently manages Plan/Interventions: Assist Pt to ID & engage in lifestyle modification to reduce CVD risk, Instruct on individual risk factors, Review symptoms of angina & emergency actions and Review secondary diagnosis & identify educational needs. Safety Referral to Physical Therapy: No Referral to [facility] Case Management: No Fall Risk Assessed:: Yes Assistive Devices:: None Exercise - Initial Assessment Visit Date of Eval: 04/12/23 Session #:: 0 (pre-program evaluation) Mets: Pre-: >7 METS for 30 minutes by discharge Physician Prescribed Exercise Modalities: Treadmill, Airdyne, NuStep and SciFit Frequency: 3x/week for 12 weeks [36 sessions] Intensity: 60-80% of age predicted maximum heart rate reserve Duration: 30 - 45 minutes Current METSs:: 3.0 to start due to sedentary home activitiy Target Heart Rate:: 89-111 Resting Blood Pressure: 144/82 EKG Type: Sinus Rhythm with nonspecific T wave abnormality Current Physical Activity or Exercising minutes: 0 Outcomes & Goals Goals:: Verbalizes understanding of THR, RPE & goal METS by session 6, Documents in home exercise log/reports 30 min aerobic 5 day/wk by DC and Demonstrates accurate pulse taking by DC Intervention & Plan Exercise Program Goals: Instruct on personal THR & RPE, Instruct on MET level & personal MET goal, Show patient to take own pulse /validate performance until accurate and Instruct on home exercise Physical Activity Home Exercise Physical Activity - Home Exercise: Safe Exercise, Warm-up, Self-monitoring, Cool-Down, Home Exercise > 30 min Daily and Sitting Time <3 hours/daily Outcomes & Goals Outcomes/Goals: Demonstrates correct Warm-up/exercise Cool-Down (S3) if = 2.5 METs, Verbalizes symptoms of exercise intolerance by Session 3 (S3) and Demonstrate safe equipment use (S3) & follows exercise prescrition (6) Intervention & Plan Plan/Intervention: Instruct warm-up & cool-down if exercising at > 2 METs, Instruct on symptoms of exercise intolerance & actions to take, Instruct & monitor on saf and Assess intial functional capacity & safety risk Nutrition - Initial Assessment Visit Date of Eval: 04/12/23 Session #:: 0 (Pre-program evaluation) Cholesterol/Lipids (Other Core Measures) Determine presence & major risk factors that modify LDL goal: Hypertension or hypertensive medication (New Onset) Outcomes/Goals: Pt IDs own risk factors & lifestyle modifications by Session 10, Verbalizes symptoms of angina & response by session 3. and Pt independently manages Intervention/Plan: Instruct on personal lipid levels & lipid goals/NCEP guidelines and Instruct on cholesterol Referral to dietitian:: Yes Diabetes (Other Core Measures) Diabetes Type: Not Applicable Weight Mgt (Other Care) Height: 5 ft 2 in Weight:: 231 lb BMI: 42.2 Diagnosis Overweight/Obesity BMI> 30% ICD-10 E66: Yes Diagnosis High BMI/Morbid Obesity BMI> 35% ICD-10 Z68: Yes Outcomes/Goals: Pt sets, maintains & shows weight loss goal & trend during rehab Intervention/Plan: Instruct on ideal BMI & set weight loss goal w/patient, Assist pt to ID & incorporate diet changes for weight loss by S9, Refer to Structured Weight Loss program as appropriate and Encourage goal of using 250-300dcal per session for weight loss Healthy Eating Habits Will attend diet classes:: Yes Outcomes/Goals:: Consume diet rich in vegs,fruits,whole grain/high fiber,fish,lean meat and Limit sat/trans fats,cholesterol & added salts & sugars Intervention/Plan:: Assess current eating habits Education Gave educational materials for:: Healthy eating Core - Initial Assessment Visit Date of Eval: 04/12/23 Session #:: 0 (Pre-program evaluation) Medication Compliance Preventative Medication(s):: Aspirin H/O mental health issues: depression, anxiety, or addiction?: Yes Doesn?t believe in the benefits of treatment?: No Believes medications are unnecessary or harmful?: No Has a concern about medication side effects?: No Expresses concern over the cost of medications?: No Outcomes/Goals: Verbalizes medications,desired effect & common side effects @ DC, Pt self-reports following medication regimen and Keeps card in wallet w/medications listed by DC Interventions/plans: Review medication list w/patient every two weeks and Instruct importance of taking meds as ordered & assist problem solving Tobacco Use Tobacco Use: Non-smoker (Never Smoked) Hypertension Hypertension Diagnosis:: Hypertension ICD-10 I10 (Recent (New) onset since surgery) Resting Blood Pressure:: 144/82 (currently increased amlodipine to 5 mg BID) [place] [employer] Hypertension Guidelines Outcomes/Goals: Able to verbalize/achieve optimal blood pressure <130/80 and Incorporates diet changes & exercise for blood pressure control by DC Interventions/plan: Instruct on optimal blood pressure, hypertension & medications and Instruct on effects of sodium, alcohol, stress, exercise &hypertension Tobacco Cessation Referral Smoking Cessation Referral:: No Individual Education/Counseling:: No Education Schedule Given:: Yes Psychosocial - Initial Assess VIsit Date of Eval: 04/12/23 Session #:: 0 (pre-cardiac rehab evaluation) History of previous Mental disease:: Yes History of Emotional Disorders: Anxious (been very anxious since the surgery.) Target Goals Target Goals Psychosocial Test Tool Used:: Velas[employer] Power QOL Cardiac and PHQ-9 Questionnaire phq-9 Severity Referral to Behavioral Health PS - Interventions: Yes: Attend Stress Management Classes and No: Referral to Behavioral Health if PHQ-9 score >9:, No: Referral to [facility] and No: Referral to Physician if PHQ-9 if score is 5-9: Outcomes/Goals: See list Psychosocial Outcomes/Goals:: ID's personal stressors & 2 strategies to manage stress by discharge Intervention/Plan: See List Interventions/Plan:: Assess stressors,coping strategies & signs of derpression on admission, Instruct/assist pt to develop coping & personal stress Mgt strategies, Instruct patient to recognize signs & symptoms of depression and Instruct patient to recog Patient Health Questionnaire PHQ-9 Screening Initial Assessment: 1. Little interest or pleasure in doing things: Not at all 2. Feeling down, depressed, or hopeless: Not at all 3. Trouble falling or staying asleep, or sleeping too much: Several days 4. Feeling tired or having little energy: More than half the days 5. Poor appetite or overeating: Not at all 6. Feeling bad about yourself -- or that you are a failure or have let yourself or your family down: Several days 7. Trouble concentrating on things, such as reading the newspaper or watching television: Not at all 8. Moving or speaking so slowly that other people could have noticed. Or the opposite - being so fidgety or restless that you have been moving around a lot more than usual: Not at all 9. Thoughts that you would be better off , or of hurting yourself in some way: Not at all How difficult have these problems made it for you to do your work, take care of things at home, or get along with other people?: Not difficult at all Total Score: 4 MARK ANTHONY-Q SV Test Statements CAD is a disease of the arteries in the heart: False Examples of risk factors for heart disease: True Angina is chest pain or discomfort: True The benefits of resistance training include: True Eating more meat and dairy products: False Anti-platelet medications such as aspirin are important: I Don't Know The only effective way to manage stress: False An exercise warm-up slowly increases heart rate: True Prepared, processed foods usually have high sodium: True Depression is common after a heart attack: True The statin medications lower cholesterol: True To control blood pressure, lower the amount of sodium: True If someone gets chest discomfort during walking: False Transfats are partially hydrogenated vegetable oils: True Sleep apnea that is not treated increases the risk: False To control cholesterol, one should become a vegetarian: False Someone knows if he/she is exercising at the right level: True Diabetes cannot be prevented with exercise & health eating: I Don't Know Stress is a large risk for heart attack: I Don't Know A diet that can help lower blood pressure is rich in: I Don't Know Total Score Total Correct Responses: 16 Self-Efficacy 6-Item Scale Initial Assessment: We would like to know how confident you are in doing certain activities. Please select your confidence level for: Fatigue Select Number: 8 Physical Discomfort or Pain Select Number: 9 Emotional Distress Select Number: 10 Other Symptoms or Health Problems Select Number: 8 Different Tasks and Activities Select Number: 8 Medication Select Number: 7 Total Score:: 8 Nutrition Survey Nutrition Survey Instructions Scoring Instructions Nutrition Survey Initial: Have you lost >10 lbs over the past 2 months without trying?: No Are you following a special diet at home for diabetes, low fat, or low salt?: No Are you interested in meeting with a dietitian for help understanding your diet?: Yes Do you eat less than 3 meals a day?: No Do you eat fatty meats (rudolph, sausage, ribs, etc), fried foods, desserts, large amounts of salad dressings, margarine, butter, or cheese most days?: Yes Do you have food allergies? [Enter types in comment field]: No Do you eat in restaurants more than 3 times a week?: No Do you season food with salt, seasoning salt, or garlic salt?: Yes Do you used canned, boxed, frozen meals, or soups, seasoning packets?: Yes Total Score:: 4 Exercise - Final/Discharge Physician Prescribed Exercise Modalities: Treadmill, Airdyne, NuStep and SciFit Frequency: 3x/week for 12 weeks [36 sessions] Intensity: 60-80% of age predicted maximum heart rate reserve Current METSs:: 3.0 to start due to sedentary home activitiy Target Heart Rate:: 89-111 Nutrition - 30-Day Assessment Weight Mgt (Other Care) Height: 5 ft 2 in Weight:: 231 lb BMI: 42.2 Nutrition - 60-Day Assessment Weight Mgt (Other Care) Height: 5 ft 2 in Weight:: 231 lb BMI: 42.2 Core - 30-Day Assessment Visit Session #:: 0 (pre-program evaluation) Core - Final Assessment Hypertension Resting Blood Pressure:: 144/82 (currently increased amlodipine to 5 mg BID) [place] [employer] Hypertension Guidelines Core - 60-Day Assessment Hypertension Resting Blood Pressure:: 144/82 (currently increased amlodipine to 5 mg BID) [place] [employer] Hypertension Guidelines Psychosocial - 30-Day Assess Target Goals Target Goals Referral to Behavioral Health PS - Interventions: Yes: Attend Stress Management Classes and No: Referral to Behavioral Health if PHQ-9 score >9:, No: Referral to [facility] and No: Referral to Physician if PHQ-9 if score is 5-9: Psychosocial - 60-Day Assess Target Goals Target Goals Referral to Behavioral Health PS - Interventions: Yes: Attend Stress Management Classes and No: Referral to Behavioral Health if PHQ-9 score >9:, No: Referral to [facility] and No: Referral to Physician if PHQ-9 if score is 5-9: Psychosocial - 90-Day Assess Target Goals Target Goals Referral to Behavioral Health PS - Interventions: Yes: Attend Stress Management Classes and No: Referral to Behavioral Health if PHQ-9 score >9:, No: Referral to [facility] and No: Referral to Physician if PHQ-9 if score is 5-9: Psychosocial - Final Assessmen Target Goals Target Goals Referral to Behavioral Health PS - Interventions: Yes: Attend Stress Management Classes and No: Referral to Behavioral Health if PHQ-9 score >9:, No: Referral to [facility] and No: Referral to Physician if PHQ-9 if score is 5-9: Nutrition - 90-Day Assessment Weight Mgt (Other Care) Height: 5 ft 2 in Weight:: 231 lb BMI: 42.2 Nutrition - Final Assessment Weight Mgt (Other Care) Height: 5 ft 2 in Weight:: 231 lb BMI: 42.2
[2023-04-12 08:16] VITALS: RESP 14; TEMP 36.4
[2023-04-12 08:22] VITALS: BP 144/82; PULSE 63; O2SAT 97; BMI 42.2
[2023-04-12 08:36] VITALS: BP 144/82; BMI 42.2
== END | disposition home or self-care (01) ==
LOC: CR 07:56
PROVIDERS: PCP Family Medicine Geriatric Medicine; Referring Provider Internal Medicine Cardiovascular Disease; Visit Provider Internal Medicine Cardiovascular Disease
DX: I35.0 Nonrheumatic aortic (valve) stenosis (principal)

== ENCOUNTER 2023-04-17 14:15 | Outpatient (RCR) | payer MEDICARE, OTHER, SELFPAY ==
[2023-04-12 08:36] VITALS: BMI 42.2
== END 2023-04-17 23:59 ==
LOC: CR 14:15
PROVIDERS: PCP Family Medicine Geriatric Medicine; Referring Provider Internal Medicine Cardiovascular Disease; Visit Provider Internal Medicine Cardiovascular Disease
DX: Z95.2 Presence of prosthetic heart valve (principal)
CPT/HCPCS: 93798

== ENCOUNTER → 2023-04-21 | Outpatient (CLI) | payer MEDICARE, OTHER, SELFPAY ==
[2023-04-12 08:36] VITALS: BMI 42.2
[2023-04-21 15:50] LABS: Anion Gap 7 (5-15); BUN 17 mg/dL (7-18); Calcium,Total 9.1 mg/dL (8.5-10.1); Chloride 101 mmol/L (98-107); Creatinine, Serum 1.31 mg/dL (0.55-1.02); EST Glomerular Filtration Rate 42 mL/min (>60); Est Glom Filt Rate - Afr Amer 51 mL/min (>60); Glucose 118 mg/dL (74-106); Sodium Level 140 mmol/L (136-145)
== END | disposition home or self-care (01) ==
LOC: LAB 14:50
PROVIDERS: PCP Family Medicine Geriatric Medicine; Referring Provider Nurse Practitioner Gerontology; Visit Provider Nurse Practitioner Gerontology
DX: R00.2 Palpitations (principal); I10 Essential (primary) hypertension; Z95.2 Presence of prosthetic heart valve
CPT/HCPCS: 36415; 80048

== ENCOUNTER → 2023-05-01 | Outpatient (CLI) | payer MEDICARE, OTHER, SELFPAY ==
[2023-04-12 08:36] VITALS: BMI 42.2
[2023-05-01 15:59] LABS: Magnesium 2.3 mg/dL (1.6-2.6)
== END | disposition home or self-care (01) ==
LOC: LAB 15:05
PROVIDERS: PCP Family Medicine Geriatric Medicine; Referring Provider Nurse Practitioner Gerontology; Visit Provider Nurse Practitioner Gerontology
DX: E87.6 Hypokalemia (principal); I49.3 Ventricular premature depolarization
CPT/HCPCS: 36415; 83735

== ENCOUNTER → 2023-05-03 | Outpatient (CLI) | payer MEDICARE, OTHER, SELFPAY ==
[2023-04-12 08:36] VITALS: BMI 42.2
[2023-05-03 16:27] LABS: Anion Gap 4 (5-15); BUN 16 mg/dL (7-18); BUN/Creat Ratio 15.5 RATIO (10-20); Calcium,Total 8.7 mg/dL (8.5-10.1); Chloride 109 mmol/L (98-107); Creatinine, Serum 1.03 mg/dL (0.55-1.02); EST Glomerular Filtration Rate 56 mL/min (>60); Est Glom Filt Rate - Afr Amer 68 mL/min (>60); Glucose 103 mg/dL (74-106); Potassium 3.9 mmol/L (3.5-5.1); Sodium Level 141 mmol/L (136-145)
== END | disposition home or self-care (01) ==
LOC: LAB 15:02
PROVIDERS: PCP Family Medicine Geriatric Medicine; Referring Provider Nurse Practitioner Gerontology; Visit Provider Nurse Practitioner Gerontology
DX: E87.6 Hypokalemia (principal)
CPT/HCPCS: 36415; 80048

== ENCOUNTER → 2023-05-09 | Outpatient (CLI) | payer MEDICARE, OTHER, SELFPAY ==
[2023-04-12 08:36] VITALS: BMI 42.2
== END | disposition home or self-care (01) ==
LOC: PSN 12:25
PROVIDERS: PCP Family Medicine Geriatric Medicine; Referring Provider Nurse Practitioner Gerontology; Visit Provider Nurse Practitioner Gerontology
DX: I49.3 Ventricular premature depolarization (principal); R00.2 Palpitations; I51.7 Cardiomegaly
CPT/HCPCS: 93225; 93226

== ENCOUNTER 2023-05-17 14:15 | Outpatient (RCR) | payer MEDICARE, OTHER, SELFPAY ==
[2023-04-12 08:36] VITALS: BMI 42.2
--- NOTE | 2023-05-12 11:17 | PCM.CR.ITP ---
Exercise - Initial Assessment Visit Session #:: 12 Nutrition - Initial Assessment Weight Mgt (Other Care) Height: 5 ft 2 in Weight:: 238 lb BMI: 43.5 Psychosocial - Initial Assess Target Goals Target Goals Patient Health Questionnaire PHQ-9 Screening 30-Day Re-eval Assessment: 1. Little interest or pleasure in doing things: Not at all 2. Feeling down, depressed, or hopeless: Not at all 3. Trouble falling or staying asleep, or sleeping too much: Several days 4. Feeling tired or having little energy: More than half the days 5. Poor appetite or overeating: Not at all 6. Feeling bad about yourself -- or that you are a failure or have let yourself or your family down: Several days 7. Trouble concentrating on things, such as reading the newspaper or watching television: Not at all 8. Moving or speaking so slowly that other people could have noticed. Or the opposite - being so fidgety or restless that you have been moving around a lot more than usual: Not at all 9. Thoughts that you would be better off , or of hurting yourself in some way: Not at all How difficult have these problems made it for you to do your work, take care of things at home, or get along with other people?: Not difficult at all Total Score: 4 Self-Efficacy 6-Item Scale 30-Day Re-eval Assessment: We would like to know how confident you are in doing certain activities. Please select your confidence level for: Fatigue Select Number: 8 Physical Discomfort or Pain Select Number: 9 Emotional Distress Select Number: 10 Other Symptoms or Health Problems Select Number: 8 Different Tasks and Activities Select Number: 8 Medication Select Number: 7 Total Score:: 8 Nutrition Survey Nutrition Survey Instructions Scoring Instructions Exercise - 30-day Assessment Visit Date of Eval: 05/12/23 Session #:: 12 Physician Prescribed Exercise Modalities: Treadmill, NuStep and SciFit Frequency: 3x/week for 12 weeks [36 sessions] Intensity: 60-80% of age predicted maximum heart rate reserve Duration: 30 - 45 minutes Current METSs:: 3 Target Heart Rate:: 89-111 Current RPE:: 10-12 Maximum Excercise HR:: 101 Resting Blood Pressure: 120/62 Maximum Exercise Blood Pressure: 152/82 EKG Type: NSR to ST w/occas to freq pvc's, occas vent chip, occas to freq multifo Outcomes & Goals Goals:: Verbalizes understanding of THR, RPE & goal METS by session 6, Documents in home exercise log/reports 30 min aerobic 5 day/wk by DC, Demonstrates accurate pulse taking by DC and Other additional outcome/goals: see below Intervention & Plan Exercise Program Goals: Instruct on personal THR & RPE, Instruct on MET level & personal MET goal, Show patient to take own pulse /validate performance until accurate, Instruct on home exercise and Other additional plan/int 30-day Reassessments 30 day Reassessments:: Progressing Reassessment Notes & Comments:: RPE explained Physical Activity Home Exercise Physical Activity - Home Exercise: Safe Exercise, Warm-up, Self-monitoring, Cool-Down, Home Exercise > 30 min Daily and Sitting Time <3 hours/daily Outcomes & Goals Outcomes/Goals: Demonstrates correct Warm-up/exercise Cool-Down (S3) if = 2.5 METs, Verbalizes symptoms of exercise intolerance by Session 3 (S3), Demonstrate safe equipment use (S3) & follows exercise prescrition (6) and Other: See below Intervention & Plan Plan/Intervention: Instruct warm-up & cool-down if exercising at > 2 METs, Instruct on symptoms of exercise intolerance & actions to take, Instruct & monitor on saf, Assess intial functional capacity & safety risk and Other See below 30-day Reassessments 30 day Reassessments:: Progressing Reassessment Notes & Comments:: warm up encouraged Nutrition - 30-Day Assessment Visit Date of Eval: 05/12/23 Session #:: 12 Cholesterol/Lipids (Other Core Measures) Determine presence & major risk factors that modify LDL goal: Cigarette smoking, Hypertension or hypertensive medication, Low HDL cholesterol <40 mg/dL*, Family history of premature CHD in Male < 55 years: female <65 yearsFa and Age men > 45 years; women >/= 55 years Outcomes/Goals: Pt IDs own risk factors & lifestyle modifications by Session 10, Verbalizes symptoms of angina & response by session 3., Pt independently manages and Other Additional Outcomes/Goals: Intervention/Plan: Advocate for lipid panel cholesterol medication if applicable, Instruct on personal lipid levels & lipid goals/NCEP guidelines, Instruct on cholesterol and Other additional plan/int Referral to dietitian:: No (pt declined) 30-day Reassessments:: Progressing Reassessment Notes & Comments:: will attend nutrition class Weight Mgt (Other Care) Height: 5 ft 2 in Weight:: 238 lb BMI: 43.5 Diagnosis Overweight/Obesity BMI> 30% ICD-10 E66: Yes Diagnosis High BMI/Morbid Obesity BMI> 35% ICD-10 Z68: Yes Outcomes/Goals: Pt sets, maintains & shows weight loss goal & trend during rehab and Other additional outcomes/goals 30 day Reassessments:: Progressing Reassessment Notes & Comments:: pt to attend nutrition class Healthy Eating Habits Will attend diet classes:: Yes Outcomes/Goals:: Consume diet rich in vegs,fruits,whole grain/high fiber,fish,lean meat, Limit sat/trans fats,cholesterol & added salts & sugars and Other additional outcome/goals: Intervention/Plan:: Assess current eating habits and Other Additional plan/interventions 30-day Reassessments:: Progressing Reassessment Notes & Comments:: pt to attend nutrition class Education Gave educational materials for:: Signs & symptoms of hypoglycemia, Signs & symptoms of hyperglycemia, Relate diabetes to coronary artery disease and Healthy eating Nutrition - 60-Day Assessment Weight Mgt (Other Care) Height: 5 ft 2 in Weight:: 238 lb BMI: 43.5 Core - 30-Day Assessment Visit Date of Eval: 05/12/23 Session #:: 12 Medication Compliance Preventative Medication(s):: Aspirin H/O mental health issues: depression, anxiety, or addiction?: Yes Doesn?t believe in the benefits of treatment?: No Believes medications are unnecessary or harmful?: No Has a concern about medication side effects?: No Expresses concern over the cost of medications?: No Outcomes/Goals: Verbalizes medications,desired effect & common side effects @ DC, Pt self-reports following medication regimen, Keeps card in wallet w/medications listed by DC and Other additional outcome/goals: Interventions/plans: Instruct on medication effects & side effects, Review medication list w/patient every two weeks, Instruct importance of taking meds as ordered & assist problem solving and Other additional 30-day Reassessments:: Progressing Reassessment Notes & Comments:: pt encouraged to take her meds Tobacco Use Tobacco Use: Non-smoker Hypertension Hypertension Diagnosis:: Hypertension ICD-10 I10 Resting Blood Pressure:: 120/62 [place] [employer] Hypertension Guidelines Peak Exercise Blood Pressure:: 152/82 Outcomes/Goals: Able to verbalize/achieve optimal blood pressure <130/80, Incorporates diet changes & exercise for blood pressure control by DC and Other additional outcomes/goals Interventions/plan: Instruct on optimal blood pressure, hypertension & medications, Instruct on effects of sodium, alcohol, stress, exercise &hypertension and Other additional plan/interventions 30 day Reassessments:: Progressing Reassessment Notes & Comments:: pt encouraged to take meds Tobacco Cessation Referral Smoking Cessation Referral:: No Individual Education/Counseling:: No Education Schedule Given:: Yes Psychosocial - 30-Day Assess VIsit Date of Eval: 05/12/23 Session #:: 12 History of previous Mental disease:: Yes History of Emotional Disorders: Anxious Target Goals Target Goals Outcomes/Goals: See list Psychosocial Outcomes/Goals:: ID's personal stressors & 2 strategies to manage stress by discharge and Other Additional outcome/goals: Intervention/Plan: See List Interventions/Plan:: Assess stressors,coping strategies & signs of derpression on admission, Instruct/assist pt to develop coping & personal stress Mgt strategies, Refer to Behavioral Health if appropriate, Refer to Physician if appropriate, Instruct patient to recognize signs & symptoms of depression, Instruct patient to recog and Other additional plan/intervention 30-day Reassessments: 30 day Reassessments:: Progressing Psychosocial - 60-Day Assess Target Goals Target Goals Outcomes/Goals: See list Psychosocial Outcomes/Goals:: ID's personal stressors & 2 strategies to manage stress by discharge and Other Additional outcome/goals: Psychosocial - 90-Day Assess Target Goals Target Goals Psychosocial - Final Assessmen Target Goals Target Goals Nutrition - 90-Day Assessment Weight Mgt (Other Care) Height: 5 ft 2 in Weight:: 238 lb BMI: 43.5 Nutrition - Final Assessment Weight Mgt (Other Care) Height: 5 ft 2 in Weight:: 238 lb BMI: 43.5
[2023-05-12 11:28] VITALS: BP 120/62; BMI 43.5
== END 2023-05-18 23:59 ==
LOC: CR 14:15
PROVIDERS: PCP Family Medicine Geriatric Medicine; Referring Provider Internal Medicine Cardiovascular Disease; Visit Provider Internal Medicine Cardiovascular Disease
DX: Z95.2 Presence of prosthetic heart valve (principal)
CPT/HCPCS: 93798

== ENCOUNTER 2023-06-12 14:15 | Outpatient (RCR) | payer MEDICARE, OTHER, SELFPAY ==
[2023-05-12 11:28] VITALS: BMI 43.5
[2023-05-19 00:13] VITALS: BP 120/62
--- NOTE | 2023-06-12 08:31 | PCM.CR.ITP ---
Nutrition - Initial Assessment Weight Mgt (Other Care) Height: 5 ft 2 in Weight:: 238 lb BMI: 43.5 Psychosocial - Initial Assess Target Goals Target Goals Referral to Behavioral Health PS - Interventions: Yes: Attend Stress Management Classes and No: Referral to Behavioral Health if PHQ-9 score >9:, No: Referral to [facility] and No: Referral to Physician if PHQ-9 if score is 5-9: Patient Health Questionnaire PHQ-9 Screening 60-Day Re-eval Assessment: 1. Little interest or pleasure in doing things: Not at all 2. Feeling down, depressed, or hopeless: Not at all 3. Trouble falling or staying asleep, or sleeping too much: Not at all 4. Feeling tired or having little energy: Several days 5. Poor appetite or overeating: Not at all 6. Feeling bad about yourself -- or that you are a failure or have let yourself or your family down: Several days 8. Moving or speaking so slowly that other people could have noticed. Or the opposite - being so fidgety or restless that you have been moving around a lot more than usual: Not at all 9. Thoughts that you would be better off , or of hurting yourself in some way: Not at all How difficult have these problems made it for you to do your work, take care of things at home, or get along with other people?: Not difficult at all Total Score: 2 Self-Efficacy 6-Item Scale 60-Day Re-eval Assessment: We would like to know how confident you are in doing certain activities. Please select your confidence level for: Fatigue Select Number: 9 Physical Discomfort or Pain Select Number: 9 Emotional Distress Select Number: 10 Other Symptoms or Health Problems Select Number: 8 Different Tasks and Activities Select Number: 8 Medication Select Number: 8 Total Score:: 8 Nutrition Survey Nutrition Survey Instructions Scoring Instructions Exercise - 60-day Assessment Visit Date of Eval: 06/12/23 Session #:: 21 Physician Prescribed Exercise Modalities: Treadmill, NuStep and SciFit Frequency: 3x/week for 12 weeks [36 sessions] Intensity: 60-80% of age predicted maximum heart rate reserve Duration: 30 - 45 minutes METs - Progression 0.5-1.0 weekly:: Pateint unwilling to increase levels of exercise Current METSs:: 3.0 Target Heart Rate:: 89-111 Current RPE:: 11-12 Maximum Excercise HR:: 91 Resting Blood Pressure: 124/70 Maximum Exercise Blood Pressure: 138/80 EKG Type: NSR w/occasional PVCs, ventricular bigeminy multifocal couplets & triplets. Outcomes & Goals Goals:: Verbalizes understanding of THR, RPE & goal METS by session 6, Documents in home exercise log/reports 30 min aerobic 5 day/wk by DC and Demonstrates accurate pulse taking by DC Intervention & Plan Exercise Program Goals: Instruct on personal THR & RPE, Instruct on MET level & personal MET goal, Show patient to take own pulse /validate performance until accurate and Instruct on home exercise 30-day Reassessments 30 day Reassessments:: Met Physical Activity Home Exercise Physical Activity - Home Exercise: Safe Exercise, Warm-up, Self-monitoring, Cool-Down, Home Exercise > 30 min Daily and Sitting Time <3 hours/daily Outcomes & Goals Outcomes/Goals: Demonstrates correct Warm-up/exercise Cool-Down (S3) if = 2.5 METs, Verbalizes symptoms of exercise intolerance by Session 3 (S3) and Demonstrate safe equipment use (S3) & follows exercise prescrition (6) Intervention & Plan Plan/Intervention: Instruct warm-up & cool-down if exercising at > 2 METs, Instruct on symptoms of exercise intolerance & actions to take, Instruct & monitor on saf and Assess intial functional capacity & safety risk 30-day Reassessments 30 day Reassessments:: Met Nutrition - 30-Day Assessment Weight Mgt (Other Care) Height: 5 ft 2 in Weight:: 238 lb BMI: 43.5 Nutrition - 60-Day Assessment Program Goals Nutrition Program Goals Patient has diagnosis of Hyperlipidemia (ICD E78)?: Yes Visit Date of Eval: 06/12/23 Session #:: 21 Cholesterol/Lipids (Other Core Measures) Determine presence & major risk factors that modify LDL goal: Hypertension or hypertensive medication Outcomes/Goals: Verbalizes symptoms of angina & response by session 3. and Pt independently manages Intervention/Plan: Instruct on personal lipid levels & lipid goals/NCEP guidelines and Instruct on cholesterol Referral to dietitian:: Yes 30-day Reassessments:: Progressing Diabetes (Other Core Measures) Diabetes Type: Not Applicable Weight Mgt (Other Care) Height: 5 ft 2 in Weight:: 238 lb BMI: 43.5 Diagnosis Overweight/Obesity BMI> 30% ICD-10 E66: Yes Outcomes/Goals: Pt sets, maintains & shows weight loss goal & trend during rehab Intervention/Plan: Instruct on ideal BMI & set weight loss goal w/patient, Assist pt to ID & incorporate diet changes for weight loss by S9, Refer to Structured Weight Loss program as appropriate and Encourage goal of using 250-300dcal per session for weight loss 30 day Reassessments:: Not Met Healthy Eating Habits Will attend diet classes:: Yes Outcomes/Goals:: Consume diet rich in vegs,fruits,whole grain/high fiber,fish,lean meat and Limit sat/trans fats,cholesterol & added salts & sugars Intervention/Plan:: Assess current eating habits 30-day Reassessments:: Progressing Education Gave educational materials for:: Healthy eating Core - 60-Day Assessment Visit Date of Eval: 06/12/23 Session #:: 21 Medication Compliance Preventative Medication(s):: Aspirin, Statin/lipid and Beta alex H/O mental health issues: depression, anxiety, or addiction?: Yes Doesn?t believe in the benefits of treatment?: No Believes medications are unnecessary or harmful?: No Has a concern about medication side effects?: No Expresses concern over the cost of medications?: No Outcomes/Goals: Verbalizes medications,desired effect & common side effects @ DC, Pt self-reports following medication regimen and Keeps card in wallet w/medications listed by DC Interventions/plans: Instruct on medication effects & side effects, Review medication list w/patient every two weeks and Instruct importance of taking meds as ordered & assist problem solving 30-day Reassessments:: Met Tobacco Use Tobacco Use: Non-smoker Hypertension Hypertension Diagnosis:: Hypertension ICD-10 I10 Resting Blood Pressure:: 124/70 [place] [employer] Hypertension Guidelines Peak Exercise Blood Pressure:: 138/80 Outcomes/Goals: Able to verbalize/achieve optimal blood pressure <130/80 and Incorporates diet changes & exercise for blood pressure control by DC Interventions/plan: Instruct on optimal blood pressure, hypertension & medications and Instruct on effects of sodium, alcohol, stress, exercise &hypertension 30 day Reassessments:: Met Tobacco Cessation Referral Smoking Cessation Referral:: No Individual Education/Counseling:: No Education Schedule Given:: Yes Psychosocial - 30-Day Assess Target Goals Target Goals Referral to Behavioral Health PS - Interventions: Yes: Attend Stress Management Classes and No: Referral to Behavioral Health if PHQ-9 score >9:, No: Referral to [facility] and No: Referral to Physician if PHQ-9 if score is 5-9: Outcomes/Goals: See list Psychosocial Outcomes/Goals:: ID's personal stressors & 2 strategies to manage stress by discharge Psychosocial - 60-Day Assess VIsit Date of Eval: 06/12/23 Session #:: 21 Not Applicable: No History of previous Mental disease:: Yes History of Emotional Disorders: Anxious and Depression Target Goals Target Goals Psychosocial Test Tool Used:: PHQ-9 Questionnaire phq-9 Severity Referral to Behavioral Health PS - Interventions: Yes: Attend Stress Management Classes and No: Referral to Behavioral Health if PHQ-9 score >9:, No: Referral to [facility] and No: Referral to Physician if PHQ-9 if score is 5-9: Outcomes/Goals: See list Psychosocial Outcomes/Goals:: ID's personal stressors & 2 strategies to manage stress by discharge Intervention/Plan: See List Interventions/Plan:: Assess stressors,coping strategies & signs of derpression on admission, Instruct/assist pt to develop coping & personal stress Mgt strategies, Instruct patient to recognize signs & symptoms of depression and Instruct patient to recog 30-day Reassessments: 30 day Reassessments:: Progressing Psychosocial - 90-Day Assess Target Goals Target Goals Referral to Behavioral Health PS - Interventions: Yes: Attend Stress Management Classes and No: Referral to Behavioral Health if PHQ-9 score >9:, No: Referral to [facility] and No: Referral to Physician if PHQ-9 if score is 5-9: Psychosocial - Final Assessmen Target Goals Target Goals Referral to Behavioral Health PS - Interventions: Yes: Attend Stress Management Classes and No: Referral to Behavioral Health if PHQ-9 score >9:, No: Referral to [facility] and No: Referral to Physician if PHQ-9 if score is 5-9: Nutrition - 90-Day Assessment Weight Mgt (Other Care) Height: 5 ft 2 in Weight:: 238 lb BMI: 43.5 Nutrition - Final Assessment Weight Mgt (Other Care) Height: 5 ft 2 in Weight:: 238 lb BMI: 43.5
[2023-06-12 08:40] VITALS: BP 124/70; BMI 43.5
== END 2023-06-17 23:59 ==
LOC: CR 14:15
PROVIDERS: PCP Family Medicine Geriatric Medicine; Referring Provider Internal Medicine Cardiovascular Disease; Visit Provider Internal Medicine Cardiovascular Disease
DX: Z95.2 Presence of prosthetic heart valve (principal)
CPT/HCPCS: 93798

== ENCOUNTER 2023-07-17 14:30 | Outpatient (RCR) | payer MEDICARE, OTHER, SELFPAY ==
[2023-06-18 00:36] VITALS: BP 120/62; BP 124/70
--- NOTE | 2023-07-14 07:03 | PCM.CR.ITP ---
Nutrition - Initial Assessment Weight Mgt (Other Care) Height: 5 ft 2 in Weight:: 235 lb 8 oz BMI: 43.0 Psychosocial - Initial Assess Target Goals Target Goals Referral to Behavioral Health PS - Interventions: Yes: Attend Stress Management Classes and No: Referral to Behavioral Health if PHQ-9 score >9:, No: Referral to [facility] and No: Referral to Physician if PHQ-9 if score is 5-9: Patient Health Questionnaire PHQ-9 Screening 90-Day Re-eval Assessment: 1. Little interest or pleasure in doing things: Not at all 2. Feeling down, depressed, or hopeless: Not at all 3. Trouble falling or staying asleep, or sleeping too much: Several days 4. Feeling tired or having little energy: Not at all 5. Poor appetite or overeating: Not at all 6. Feeling bad about yourself -- or that you are a failure or have let yourself or your family down: Several days 7. Trouble concentrating on things, such as reading the newspaper or watching television: Not at all 8. Moving or speaking so slowly that other people could have noticed. Or the opposite - being so fidgety or restless that you have been moving around a lot more than usual: Not at all 9. Thoughts that you would be better off , or of hurting yourself in some way: Not at all How difficult have these problems made it for you to do your work, take care of things at home, or get along with other people?: Not difficult at all Total Score: 2 Self-Efficacy 6-Item Scale 90-Day Re-eval Assessment: We would like to know how confident you are in doing certain activities. Please select your confidence level for: Fatigue Select Number: 9 Physical Discomfort or Pain Select Number: 10 Emotional Distress Select Number: 10 Other Symptoms or Health Problems Select Number: 9 Different Tasks and Activities Select Number: 9 Medication Select Number: 8 Total Score:: 9 Nutrition Survey Nutrition Survey Instructions Scoring Instructions Exercise - 90-day Assessment Visit Date of Eval: 07/14/23 Session #:: 26 Comments:: Patient has missed a total of 12 scheduled sessions since starting the program. Physician Prescribed Exercise Modalities: Treadmill, NuStep and SciFit Frequency: 3x/week for 12 weeks [36 sessions] Intensity: 60-80% of age predicted maximum heart rate reserve Duration: 30 - 45 minutes Current METSs:: 5.0 Target Heart Rate:: 89-111 Current RPE:: 12-14 Maximum Excercise HR:: 109 Resting Blood Pressure: 122/76 Maximum Exercise Blood Pressure: 160/70 EKG Type: NSR to sinus tach with first degree AV block, Twave inversion, couplets Current Physical Activity or Exercising minutes: 35:20 Outcomes & Goals Goals:: Verbalizes understanding of THR, RPE & goal METS by session 6, Documents in home exercise log/reports 30 min aerobic 5 day/wk by DC and Demonstrates accurate pulse taking by DC Intervention & Plan Exercise Program Goals: Instruct on personal THR & RPE, Instruct on MET level & personal MET goal, Show patient to take own pulse /validate performance until accurate and Instruct on home exercise 30-day Reassessments 30 day Reassessments:: Met Physical Activity Home Exercise Physical Activity - Home Exercise: Safe Exercise, Warm-up, Self-monitoring, Cool-Down, Home Exercise > 30 min Daily and Sitting Time <3 hours/daily Outcomes & Goals Outcomes/Goals: Demonstrates correct Warm-up/exercise Cool-Down (S3) if = 2.5 METs, Verbalizes symptoms of exercise intolerance by Session 3 (S3) and Demonstrate safe equipment use (S3) & follows exercise prescrition (6) Intervention & Plan Plan/Intervention: Instruct warm-up & cool-down if exercising at > 2 METs, Instruct on symptoms of exercise intolerance & actions to take, Instruct & monitor on saf and Assess intial functional capacity & safety risk 30-day Reassessments 30 day Reassessments:: Met Nutrition - 30-Day Assessment Weight Mgt (Other Care) Height: 5 ft 2 in Weight:: 235 lb 8 oz BMI: 43.0 Nutrition - 60-Day Assessment Weight Mgt (Other Care) Height: 5 ft 2 in Weight:: 235 lb 8 oz BMI: 43.0 Core - 90 Day Assessment Visit Date of Eval: 07/14/23 Session #:: 26 Medication Compliance Preventative Medication(s):: Aspirin, Statin/lipid and Beta alex H/O mental health issues: depression, anxiety, or addiction?: No Doesn?t believe in the benefits of treatment?: No Believes medications are unnecessary or harmful?: No Has a concern about medication side effects?: No Expresses concern over the cost of medications?: No Outcomes/Goals: Verbalizes medications,desired effect & common side effects @ DC, Pt self-reports following medication regimen and Keeps card in wallet w/medications listed by DC Interventions/plans: Instruct on medication effects & side effects, Review medication list w/patient every two weeks and Instruct importance of taking meds as ordered & assist problem solving 30-day Reassessments:: Met Tobacco Use Tobacco Use: Non-smoker Hypertension Hypertension Diagnosis:: Hypertension ICD-10 I10 Resting Blood Pressure:: 122/76 [place] [employer] Hypertension Guidelines Peak Exercise Blood Pressure:: 160/70 Outcomes/Goals: Able to verbalize/achieve optimal blood pressure <130/80 and Incorporates diet changes & exercise for blood pressure control by DC Interventions/plan: Instruct on optimal blood pressure, hypertension & medications and Instruct on effects of sodium, alcohol, stress, exercise &hypertension 30 day Reassessments:: Met Tobacco Cessation Referral Smoking Cessation Referral:: No Individual Education/Counseling:: No Education Schedule Given:: Yes Psychosocial - 30-Day Assess Target Goals Target Goals Referral to Behavioral Health PS - Interventions: Yes: Attend Stress Management Classes and No: Referral to Behavioral Health if PHQ-9 score >9:, No: Referral to [facility] and No: Referral to Physician if PHQ-9 if score is 5-9: Outcomes/Goals: See list Psychosocial Outcomes/Goals:: ID's personal stressors & 2 strategies to manage stress by discharge Psychosocial - 60-Day Assess VIsit Date of Eval: 07/14/23 Session #:: 26 Not Applicable: Yes History of previous Mental disease:: No Target Goals Target Goals Psychosocial Test Tool Used:: PHQ-9 Questionnaire phq-9 Severity Referral to Behavioral Health PS - Interventions: Yes: Attend Stress Management Classes and No: Referral to Behavioral Health if PHQ-9 score >9:, No: Referral to [facility] and No: Referral to Physician if PHQ-9 if score is 5-9: Outcomes/Goals: See list Psychosocial Outcomes/Goals:: ID's personal stressors & 2 strategies to manage stress by discharge Intervention/Plan: See List Interventions/Plan:: Assess stressors,coping strategies & signs of derpression on admission, Instruct/assist pt to develop coping & personal stress Mgt strategies, Instruct patient to recognize signs & symptoms of depression and Instruct patient to recog 30-day Reassessments: 30 day Reassessments:: Progressing Psychosocial - 90-Day Assess Target Goals Target Goals Referral to Behavioral Health PS - Interventions: Yes: Attend Stress Management Classes and No: Referral to Behavioral Health if PHQ-9 score >9:, No: Referral to [facility] and No: Referral to Physician if PHQ-9 if score is 5-9: Psychosocial - Final Assessmen Target Goals Target Goals Referral to Behavioral Health PS - Interventions: Yes: Attend Stress Management Classes and No: Referral to Behavioral Health if PHQ-9 score >9:, No: Referral to [facility] and No: Referral to Physician if PHQ-9 if score is 5-9: Nutrition - 90-Day Assessment Program Goals Nutrition Program Goals Patient has diagnosis of Hyperlipidemia (ICD E78)?: Yes Visit Date of Eval: 07/14/23 Session #:: 26 Cholesterol/Lipids (Other Core Measures) Determine presence & major risk factors that modify LDL goal: Hypertension or hypertensive medication, Family history of premature CHD in Male < 55 years: female <65 yearsFa and Age men > 45 years; women >/= 55 years Outcomes/Goals: Pt IDs own risk factors & lifestyle modifications by Session 10, Verbalizes symptoms of angina & response by session 3. and Pt independently manages Intervention/Plan: Instruct on personal lipid levels & lipid goals/NCEP guidelines and Instruct on cholesterol Referral to dietitian:: Yes 30-day Reassessments:: Progressing Diabetes (Other Core Measures) Diabetes Type: Not Applicable Weight Mgt (Other Care) Not Applicable: No Height: 5 ft 2 in Weight:: 235 lb 8 oz BMI: 43.0 Diagnosis Overweight/Obesity BMI> 30% ICD-10 E66: Yes Diagnosis High BMI/Morbid Obesity BMI> 35% ICD-10 Z68: Yes Outcomes/Goals: Pt sets, maintains & shows weight loss goal & trend during rehab Intervention/Plan: Instruct on ideal BMI & set weight loss goal w/patient, Assist pt to ID & incorporate diet changes for weight loss by S9, Refer to Structured Weight Loss program as appropriate and Encourage goal of using 250-300dcal per session for weight loss 30 day Reassessments:: Not Met Healthy Eating Habits Will attend diet classes:: Yes Outcomes/Goals:: Consume diet rich in vegs,fruits,whole grain/high fiber,fish,lean meat and Limit sat/trans fats,cholesterol & added salts & sugars Intervention/Plan:: Assess current eating habits 30-day Reassessments:: Not Met Education Gave educational materials for:: Healthy eating Nutrition - Final Assessment Weight Mgt (Other Care) Height: 5 ft 2 in Weight:: 235 lb 8 oz BMI: 43.0
[2023-07-14 07:14] VITALS: BP 122/76; BMI 43.0
== END 2023-07-18 23:59 ==
LOC: CR 14:30
PROVIDERS: PCP Family Medicine Geriatric Medicine; Referring Provider Internal Medicine Cardiovascular Disease; Visit Provider Internal Medicine Cardiovascular Disease
DX: Z95.2 Presence of prosthetic heart valve (principal)
CPT/HCPCS: 93798

== ENCOUNTER 2023-08-04 14:30 | Outpatient (RCR) | payer MEDICARE, OTHER, SELFPAY ==
[2023-07-14 07:14] VITALS: BMI 43.0
[2023-07-19 00:47] VITALS: BP 120/62; BP 122/76; BP 124/70
== END 2023-08-17 23:59 ==
LOC: CR 14:30
PROVIDERS: PCP Family Medicine Geriatric Medicine; Referring Provider Internal Medicine Cardiovascular Disease; Visit Provider Internal Medicine Cardiovascular Disease
DX: Z95.2 Presence of prosthetic heart valve (principal)
CPT/HCPCS: 93798

== ENCOUNTER → 2024-02-20 | Outpatient (CLI) | payer MEDICARE, OTHER, SELFPAY ==
[2023-07-14 07:14] VITALS: BMI 43.0
[2024-02-20 18:00] LABS: Absolute Lymphocyte Count 2.74 X10^3/uL (0.83-4.51); Absolute Neutrophil Count 5.1 X10^3/uL (2.0-7.7); Basophil# 0.05 X10^3/uL; Basophil% 0.6 % (0-1); Eosinophil# 0.24 X10^3/uL; Eosinophils% 2.8 % (0-5); Hematocrit 40.5 % (37-47); Hemoglobin 12.7 g/dL (12.0-15.0); Lymphocyte # 2.74 X10^3/ul (0.83-4.51); Mean Corp Hgb Conc 31.4 g/dL (32-36); Mean Corpuscular Hgb 29.5 pg (27.0-32.0); Mean Corpuscular Volume 94.2 fL (81-99); Monocyte# 0.44 X10^3/uL; Monocyte% 5.1 % (0-10); NRBC Flagged by Analyzer 0 % (0-5); Neutrophil # 5.06 X10^3/uL (2.7-7.7); Platelet Count 191 K/mm3 (150-450); RBC Distribution Width CV 13.9 % (11.6-14.6); RBC Distribution Width SD 48.1 fl (35.1-43.9); White Blood Count 8.6 K/mm3 (4.4-11.0)
[2024-02-20 18:19] LABS: Vitamin D,25 Hydroxy 44.7 ng/mL
[2024-02-20 18:38] LABS: ALB/GLOB Ratio 1.1 RATIO (0.9-2.4); AST(SGOT) 12 U/L (15-37); Alanine Aminotransfer ALT/SGPT 22 U/L (13-56); Albumin, Serum 3.6 g/dL (3.2-5.0); Alkaline Phosphatase 87 U/L (45-117); Anion Gap 5 (5-15); BUN 17 mg/dL (7-18); BUN/Creat Ratio 15.2 RATIO (10-20); Calcium,Total 8.9 mg/dL (8.5-10.1); Chloride 106 mmol/L (98-107); Cholesterol 245 mg/dL (200); Creatinine, Serum 1.12 mg/dL (0.55-1.02); EST Glomerular Filtration Rate 51 mL/min (>60); Est Glom Filt Rate - Afr Amer 61 mL/min (>60); Globulin 3.2 g/dL (2.2-4.2); Glucose 207 mg/dL (74-106); High Density Lipoprotein 43 mg/dL; Potassium 3.9 mmol/L (3.5-5.1); Protein, Total 6.8 g/dL (6.4-8.2); Sodium Level 138 mmol/L (136-145); Thyroid Stim Hormone (TSH) 1.86 uIU/mL (0.358-3.74); Triglycerides 200 mg/dL; Very Low Density Lipoprotein 40 mg/dL (5-40)
[2024-02-23 17:40] LABS: Hemoglobin A1c 6.6 % (3.8-5.6)
== END | disposition home or self-care (01) ==
LOC: MFPLAB 15:49
PROVIDERS: PCP Family Medicine Geriatric Medicine; Visit Provider Family Medicine
DX: I10 Essential (primary) hypertension (principal); R73.01 Impaired fasting glucose; E55.9 Vitamin D deficiency, unspecified
CPT/HCPCS: 36415; 80053; 80061; 82306; 83036; 84443; 85025

== ENCOUNTER → 2025-03-04 | Outpatient (CLI) | payer MEDICARE, OTHER, SELFPAY ==
[2023-07-14 07:14] VITALS: BMI 43.0
--- NOTE | 2025-03-04 13:01 | RAD_ITS ---
PROCEDURE: KNEE 4 OR MORE VIEWS 03/04/2025 REASON FOR EXAM: LEFT KNEE INJURY TECHNIQUE: KNEE 4 OR MORE VIEWS COMPARISON: None. FINDINGS: Degenerative joint disease. No fracture or dislocation is seen. No lytic or blastic bone lesion is noted. RAD/Knee 4 or More Views IMPRESSION: No radiographic evidence of an acute abnormality. Mild degenerative joint disease. Reading [facility]
== END | disposition home or self-care (01) ==
PROVIDERS: PCP Family Medicine; Referring Provider Family Medicine; Visit Provider Family Medicine
DX: S89.92XA Unspecified injury of left lower leg, initial encounter (principal); X58.XXXA Exposure to other specified factors, initial encounter
CPT/HCPCS: 73564

== ENCOUNTER → 2025-07-03 | Outpatient (CLI) | payer MEDICARE, OTHER, SELFPAY ==
[2023-07-14 07:14] VITALS: BMI 43.0
[2025-07-03 18:28] LABS: Creatinine, Urine (random) 74.20 mg/dL (28.00-217.00); Microalbumin,Random Urine 24.6 mg/L (<20 mg/L)
== END | disposition home or self-care (01) ==
LOC: LABSPEC 14:44
PROVIDERS: PCP Family Medicine; Visit Provider Family Medicine
DX: E11.9 Type 2 diabetes mellitus without complications (principal)
CPT/HCPCS: 82043; 82570